=== PATIENT | female | born 1965 | race Caucasian/White ===

== ENCOUNTER 2019-05-07 20:50 | Emergency (ER) | payer OTHER ==
--- OUTSIDE RECORDS SUMMARY | 2019-05-07 20:53 | XMS REPORT | Clinical Summary ---
:1965 Author Organization [facility] Address [address] [place] [address] Care Team Providers Name Role Phone Kevin Nieto MD Primary Care Provider Allergies Active Allergy Reactions Severity Noted Date Comments Hydromorphone Anaphylaxis High 02/19/2018 halucinations severe Other Anxiety, Palpitations Low 01/23/2018 ANTI DEPRESSION MEDICATION - NAME UNKNOWN. Sulfa (Sulfonamide Hives, Itching 01/23/2018 Antibiotics) Medications Medication Sig Dispensed Refills Start Date End Date Status atorvastatin Take 40 mg by 0 Active (LIPITOR) 40 MG mouth daily. tablet gabapentin Take 600 mg by 0 Active (NEURONTIN) 600 mg mouth daily. tablet losartan (COZAAR) 50 Take 50 mg by 0 Active MG tablet mouth daily. nadolol (CORGARD) 40 Take 40 mg by 0 Active MG tablet mouth daily. vortioxetine Take 20 mg by 0 Active (TRINTELLIX) 20 mg mouth daily. tablet FEXOFENADINE HCL Take 1 tablet 0 Active (CHIDI ORAL) by mouth daily. montelukast Take 10 mg by 0 Active (SINGULAIR) 10 mg mouth nightly. tablet HYDROcodone-acetamino Take 2 tablets 0 Active phen (NORCO) 10-325 by mouth 3 mg per tablet (three) times a day. naloxegol (MOVANTIK) Take 25 mg by 0 Active 25 mg tablet tablet mouth daily. liraglutide (VICTOZA) Inject 1.2 mg 0 Active 0.6 mg/0.1 mL (18 under the skin mg/3 mL) pen injector daily. omeprazole (PriLOSEC) Take 20 mg by 0 Active 20 MG capsule mouth daily. topiramate (TROKENDI Take 25 mg by 0 Active XR) 25 mg mouth daily. capsule,extended release 24hr multivitamin Take 1 tablet 0 Active (THERAGRAN) tablet by mouth daily. Lactobacillus Take 1 capsule 0 Active acidophilus by mouth. (PROBIOTIC ACIDOPHILUS ORAL) cephalexin (KEFLEX) Take 1 capsule 21 capsule 0 09/19/2018 09/26/2018 500 MG capsule (500 mg total) by mouth 3 (three) times a day for 7 days. Active Problems Problem Noted Date Chronic pain syndrome 09/18/2018 Breast cancer, right breast 03/06/2018 Cancer Staging: Pathologic stage from 03/06/2018: Stage 0 (pTis (DCIS), pN0, cM0 ) - Signed by Kevin Nieto MD on 04/11/2018 Encounters Date Type Specialty Care Team Description 12/31/2018 Office Visit Neurosurgery Makro Townsend MD Chronic pain syndrome (Primary Dx); Chronic bilateral low back pain with bilateral sciatica 10/01/2018 Office Visit Neurosurgery Marko Townsend MD Chronic bilateral low back pain with bilateral sciatica (Primary Dx) 09/18/2018 Anesthesia Event Plastic Surgery [facility] Janine mcclendon NP 09/18/2018 Surgery Plastic Surgery Marko Townsend MD PLACEMENT OF SPINAL CORD STIMULATOR SYSTEM 09/18/2018 - Hospital Encounter General Internal Marko Townsend MD Chronic pain syndrome; 09/19/2018 Medicine Acute lumbar radiculopathy; History of breast cancer; Acquired absence of both breasts; Breast deformity 09/17/2018 Prep for Surgery Neurosurgery Marie, Chronic pain Aga, RN syndrome (Primary Dx) 09/05/2018 Hospital Encounter Radiology Josse Nieto MD 08/29/2018 Transcribe Orders Access Josse Nieto MD (Primary Dx) 08/27/2018 Pre-Admit Testing Pre-Admission Marko Townsend MD Preoperative Appointment Testing testing (Primary Dx) 07/23/2018 Hospital Encounter Radiology Marko Townsend MD 07/23/2018 Hospital Encounter Radiology Marko Townsend MD 07/23/2018 Office Visit Neurosurgery Marko Townsend MD Chronic bilateral low back pain with right-sided sciatica (Primary Dx); 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 Last Filed Vital Signs Vital Sign Reading Time Taken Blood Pressure 133/63 09/19/2018 11:12 AM LAWN MOWER OPERATOR Pulse 79 09/19/2018 11:12 AM LAWN MOWER OPERATOR Temperature 36.7 C (98 F) 09/19/2018 11:12 AM LAWN MOWER OPERATOR Respiratory Rate 18 09/19/2018 11:12 AM LAWN MOWER OPERATOR Oxygen Saturation 98% 09/19/2018 11:12 AM LAWN MOWER OPERATOR Inhaled Oxygen Concentration - - Weight 81.7 kg (180 lb 3.2 oz) 09/18/2018 6:42 AM LAWN MOWER OPERATOR Height 167.6 cm (5' 6") 09/18/2018 6:42 AM LAWN MOWER OPERATOR Body Mass Index 29.09 09/18/2018 6:42 AM LAWN MOWER OPERATOR Plan of Treatment Health Maintenance Due Date Last Done Comments COLONOSCOPY SCREENING 2015 SHINGLES VACCINES (#1) 2015 INFLUENZA VACCINE 05/16/2019 BREAST CANCER SCREENING 09/05/2020 09/05/2018 Implants Implanted Type Area Flight Mechanic Device Shelf Model / Identifier Expiration Serial / Date Lot Generator, Tunezy 7 With Patient Controller - [id number] - [id number] IMPLANT [facility] [employer] - 12/18/2019 3662 CONTRISYS / Implanted: Qty: 1 on 09/18/2018 by Marko Townsend MD DEVICES NEUROMODULATION [id number] / [id number] Lead Nurostmltr 60cm 3mm Penta - [id number] - [id number] Neurosurgical N/A: N/ A ADVANCED 08/14/2020 [id number] / Implanted: Qty: 1 on 09/18/2018 by Marko Townsend MD Implants NEUROMODULATION [id number] / [id number] 12.34cm X 5.86cm X 0.61cm Tunezy Patient Controller Application/ Community Cultural Development Officer, W/IActionable Touch Mobile Digital Device, 6th Generation Pain Mgmt N/A: N/A 01/2020 [id number] / Implanted: Qty: 1 on 09/18/2018 by Marko Townsend MD Implantable / Devices [id number] Drain Wound Hbls Round Radopaq Trocar Kathya White 0.18in 15fr - [id number] Surgical N/A: N/A ETHICON DIV OF 2228 / Implanted: Qty: 1 on 03/06/2018 by Philip Umana MD Implants; ESDRAS & ESDRAS / Expanders; Extenders; Surgical Wires Drain Wound Hbls Round Radopaq Trocar Kathya White 0.18in 15fr - [id number] Surgical N/A: N/A ETHICON DIV OF 2228 / Implanted: Qty: 2 on 03/06/2018 by Philip Umana MD Implants; ESDRAS & ESDRAS / Expanders; Extenders; Surgical Wires Or Nurse Manager Micrvasclr [place] 3mm Anastomosis - [id number] Surgical Right: [employer] [id number] / Implanted: Qty: 1 on 03/06/2018 by Philip Umana MD Implants; Breast INNOVATIONS / Expanders; Extenders; Surgical Wires Drain Wound Hbls Round Radopaq Trocar Kathya White 0.18in 15fr - [id number] Surgical N/A: N/A ETH[employer]ON DIV OF 2228 / Implanted: 03/06/2018 (Quantity not on file) Implants; ESDRAS & ESDRAS / Expanders; Extenders; Surgical Wires Back Fusion Right Breast Biopsy Clip [place] Or Nurse Manager Left: [employer] 03/16/2020 [id number] / Implanted: Qty: 1 on 03/06/2018 by Philip Umana MD Breast INNOVATIONS / Procedures Procedure Name Priority Date/Time Associated Comments Diagnosis POC GLUCOSE Routine 09/19/2018 7:57 Results for this AM LAWN MOWER OPERATOR procedure are in the results section. POC GLUCOSE Routine 09/18/2018 9:43 Results for this PM LAWN MOWER OPERATOR procedure are in the results section. POC GLUCOSE Routine 09/18/2018 5:09 Results for this PM LAWN MOWER OPERATOR procedure are in the results section. POC GLUCOSE Routine 09/18/2018 1:55 Results for this PM LAWN MOWER OPERATOR procedure are in the results section. SURGICAL PATHOLOGY Routine 09/18/2018 1:53 Results for this REQUEST PM LAWN MOWER OPERATOR procedure are in the results section. OR FL < 1 HOUR Routine 09/18/2018 8:40 Results for this AM LAWN MOWER OPERATOR procedure are in the results section. AK AN ELECTIVE Routine 09/18/2018 7:53 ENDOTRACHEAL AIRWAY AM LAWN MOWER OPERATOR Procedure Note - Dakota Garcia MD - 09/18/2018 7:53 AM LAWN MOWER OPERATOR ANESTHESIA INTUBATION Date/Time: 09/18/2018 7:48 AM Performed by: Dakota Garcia MD Authorized by: Dakota Garcia MD Location: OR Urgency: Elective Difficult Airway: No Anesthesiologist: Dakota Garcia MD Performed by: anesthesiologist Preoxygenated with 100% O2: Yes C-spine Precautions Maintained Throughout: Yes Mask Ventilation: Easy mask Final Airway Type: Endotracheal airway Final Endotracheal Airway: ETT Technique Used: Direct laryngoscopy Insertion Site: Oral Blade Type: Julissa Laryngoscope Blade/Videolaryngoscope Blade Size: 3 ETT Size (mm): 7.0 Measured from: Gums ETT to Gums (cm): 22 Placement Verified by: CO2 detection, direct visualization and equal breath sounds Laryngoscopic view: Grade I - full view of glottis Rapid Sequence Induction (RSI): No Modified RSI: No Number of Attempts at Approach: 1 Medications Administered Propofol (DIPRIVAN) BOLUS, 200 mg rocuronium (ZEMURON), 25 mg LIPOSUCTION 09/18/2018 7:30 AM LAWN MOWER OPERATOR Chronic pain syndrome Acute lumbar radiculopathy History of breast cancer Acquired absence of both breasts Breast deformity Case Notes C-ARM, KILLIAN TABLE, FOWLER DEVICE, PRONE POSITION, DR. TOWNSEND WORKING 1ST EST 90 MINSMD HOLDEN FULL NEURO STAFF/ EQUIP--COMING FR RM 10DR UMANA CO-SURGEON(WORKING 2ND/ EST 3 HRS)POSSIBLE EXTENDED RECOVERY NEEDED Special Needs C-ARM, KILLIAN TABLE; FOWLER DEVICE, PRONE POSITION, DR. TOWNSEND WORKING 1ST EST 90 MINSMD HOLDEN FULL NEURO STAFF/ EQUIP--COMING FR RM 10DR UMANA CO-SURGEON(WORKING 2ND/ EST 3 HRS)POSSIBLE EXTENDED RECOVERY NEEDED INJECTION, FAT GRAFT 09/18/2018 7:30 AM LAWN MOWER OPERATOR Chronic pain syndrome Acute lumbar radiculopathy History of breast cancer Acquired absence of both breasts Breast deformity Case Notes C-ARM, KILLIAN TABLE, FOWLER DEVICE, PRONE POSITION, DR. TOWNSEND WORKING 1ST EST 90 MINSMD HOLDEN FULL NEURO STAFF/ EQUIP--COMING FR RM 10DR UMANA CO-SURGEON(WORKING 2ND/ EST 3 HRS)POSSIBLE EXTENDED RECOVERY NEEDED Special Needs C-ARM, KILLIAN TABLE; FOWLER DEVICE, PRONE POSITION, DR. TOWNSEND WORKING 1ST EST 90 MINSMD HOLDEN FULL NEURO STAFF/ EQUIP--COMING FR RM 10DR UMANA CO-SURGEON(WORKING 2ND/ EST 3 HRS)POSSIBLE EXTENDED RECOVERY NEEDED REVISION, RECONSTRUCTION, 09/18/2018 7:30 AM Chronic pain syndrome BREAST LAWN MOWER OPERATOR Acute lumbar radiculopathy History of breast cancer Acquired absence of both breasts Breast deformity Case Notes C-ARM, KILLIAN TABLE, FOWLER DEVICE, PRONE POSITION, DR. TOWNSEND WORKING 1ST EST 90 MINSMD HOLDEN FULL NEURO STAFF/ EQUIP--COMING FR RM 10DR UMANA CO-SURGEON(WORKING 2ND/ EST 3 HRS)POSSIBLE EXTENDED RECOVERY NEEDED Special Needs C-ARM, KILLIAN TABLE; FOWLER DEVICE, PRONE POSITION, DR. TOWNSEND WORKING 1ST EST 90 MINSMD HOLDEN FULL NEURO STAFF/ EQUIP--COMING FR RM 10DR UMANA CO-SURGEON(WORKING 2ND/ EST 3 HRS)POSSIBLE EXTENDED RECOVERY NEEDED INSERTION, NEUROSTIMULATOR 09/18/2018 7:30 AM Chronic pain syndrome PULSE GENERATOR, SPINAL, LAWN MOWER OPERATOR Acute lumbar radiculopathy SUBCUTANEOUS History of breast cancer Acquired absence of both breasts Breast deformity Case Notes C-ARM, KILLIAN TABLE, FOWLER DEVICE, PRONE POSITION, DR. TOWNSEND WORKING 1ST EST 90 MINSMD HOLDEN FULL NEURO STAFF/ EQUIP--COMING FR RM 10DR UMANA CO-SURGEON(WORKING 2ND/ EST 3 HRS)POSSIBLE EXTENDED RECOVERY NEEDED Special Needs C-ARM, KILLIAN TABLE; FOWLER DEVICE, PRONE POSITION, DR. TOWNSEND WORKING 1ST EST 90 MINSMD HOLDEN FULL NEURO STAFF/ EQUIP--COMING FR RM 10DR UMANA CO-SURGEON(WORKING 2ND/ EST 3 HRS)POSSIBLE EXTENDED RECOVERY NEEDED POC GLUCOSE Routine 09/18/2018 7:04 Results for this AM LAWN MOWER OPERATOR procedure are in the results section. US BREAST COMPLETE Routine 09/05/2018 8:42 Breast mass Results for this BILATERAL AM LAWN MOWER OPERATOR procedure are in the results section. ESTIMATED GFR Routine 08/27/2018 4:28 Results for this PM LAWN MOWER OPERATOR procedure are in the results section. HEMOGLOBIN A1C Routine 08/27/2018 4:28 Preoperative testing Results for this PM LAWN MOWER OPERATOR procedure are in the results section. PROTHROMBIN TIME WITH Routine 08/27/2018 4:28 Preoperative testing Results for this INR PM LAWN MOWER OPERATOR procedure are in the results section. PARTIAL THROMBOPLASTIN Routine 08/27/2018 4:28 Preoperative testing Results for this TIME (PTT) PM LAWN MOWER OPERATOR procedure are in the results section. COMPREHENSIVE Routine 08/27/2018 4:28 Preoperative testing Results for this METABOLIC PANEL PM LAWN MOWER OPERATOR procedure are in the results section. HC COMPLETE BLD COUNT Routine 08/27/2018 4:28 Preoperative testing Results for this W/AUTO DIFF PM LAWN MOWER OPERATOR procedure are in the results section. TRANSFUSE RED BLOOD Routine 06/20/2018 5:53 CELLS PM CDT after 05/06/2018 Results POC glucose (09/19/2018 7:57 AM LAWN MOWER OPERATOR)Only the most recent of5 resultswithin the time period is included. POC glucose 100 (H) 65 - 99 mg/dL [facility] Comment: [facility] Notified RN Meter ID: [id number] Under Cutter: Brian Gallego Specimen Performing Organization Address City/State/Zipcode Phone Number [facility] DEPARTMENT OF PATHOLOGY AND [address] [place] [address] [place] [address] Surgical pathology request (09/18/2018 1:53 PM LAWN MOWER OPERATOR) [facility] DEPARTMENT OF PATHOLOGY AND GENOMIC MEDICINE Surgical pathology See link below [facility] DEPARTMENT OF report for PDF Lab PATHOLOGY AND Report GENOMIC MEDICINE Result status This is Final [facility] DEPARTMENT OF Report for PATHOLOGY AND [id number] GENOMIC MEDICINE Specimen Performing Organization Address City/[facility]/Zipcode Phone Number [facility] DEPARTMENT OF PATHOLOGY AND [address] [place] [id number] GENOMIC MEDICINE OR FL < 1 Hour (09/18/2018 8:40 AM LAWN MOWER OPERATOR) Specimen Narrative Performed At IMPRESSION: C-arm fluoroscopy under one hour was provided in the OR for RADIANT the referring physician. A radiologist was not present during the procedure. Refer to the Operative report issued by the performing provider for procedure details. Location: [facility] OR 20 Procedure: SPINAL CORD STIMULATOR INS Start:0800 End: 0840 Fluoro Time:0.1M mGy: 3.23 Tech: JV [id number] Procedure Note Interface, Radiology Results Incoming - 09/18/2018 12:22 PM LAWN MOWER OPERATOR IMPRESSION: C-arm fluoroscopy under one hour was provided in the OR for the referring physician. A radiologist was not present during the procedure. Refer to the Operative report issued by the performing provider for procedure details. Location: [facility] 3 OR 20 Procedure: SPINAL CORD STIMULATOR INS Start:0800 End: 0840 Fluoro Time:0.1M mGy: 3.23 Tech: BASSAM [id number] Performing Organization Address [facility]/Zipcode Phone Number [facility] [address] [place] [address] US Breast Complete Bilateral (09/05/2018 8:42 AM LAWN MOWER OPERATOR) Specimen Narrative Performed At PROCEDURE: US BREAST COMPLETE BILATERAL HM RADIANT 53-year-old with history of bilateral mastectomy. In 63. 0. Unspecified lump in breast. Status post bilateral mastectomies and bilateral reconstruction. Palpable masses bilaterally. History of known right DCIS. The patient had undergone bilateral mastectomies 03/06/2018 as well as reconstructions same day. COMPARISON: No prior ultrasound available for comparison. Previous breast MRI 01/23/2018 available. This apparently was before surgery. It showed an area that measures 1.4 cm in dimension with indeterminate morphology which represent the biopsy site. FINDINGS:Bilateral breast ultrasound accomplished with close germination worker supervision and scanning in all 4 quadrants and subareolar regions. Right breast: Upper inner quadrant, a palpable area shows a irregular superficial heterogeneous mass with some cystic component and measurement of 1.8 cm and 1.6 and 0.77 cm. Palpable area right lateral breast: Simple cyst measuring 2 cm. Left upper outer quadrant, linear superficial, subcutaneous foreign body measuring 2.6 cm long. Left medial breast shows a palpable area that is primarily cystic and measures 4.4 cm x 1.6 cm. Another palpable area in the left upper inner quadrant shows similar ultrasound characteristics heterogeneous, mixed solid and cystic, measuring 4 x 1.4 cm. IMPRESSION:Multiple bilateral fat necrosis. A foreign body was noted superficially in the subcutaneous tissues measuring about 2.6 cm long in the left upper outer quadrant. Also. RECOMMENDATION: Follow-up as needed. 6 month ultrasound follow-up would be useful. BI-RADS 3:PROBABLY BENIGN. [facility]-[id number] Performing Organization Address City/[facility]/Zipcode Phone Number [place] [address] [place] [address] Estimated GFR (08/27/2018 4:28 PM LAWN MOWER OPERATOR) Estimated GFR 77 mL/min/1.73 [facility] Comment: [address] CatergoryUnitsInterpretation G1 >=90 Normal or high G2 60-89Mildly decreased [id number] to moderately decreased [id number] to severely decreased G4 15-29Severely decreased G5 <15Kidney failure The eGFR was calculated using the Chronic Kidney Disease Epidemiology Collaboration (CKD-EPI) equation. Interpretation is based on recommendations of the National Kidney Foundation-Kidney Disease Outcomes Quality Initiative (NKF-KDOQI) published in 2014. Specimen Plasma specimen Performing Organization Address City/[facility] Phone Number [facility] DEPARTMENT OF PATHOLOGY AND [address] [place] [phone] [place] [phone] Partial thromboplastin time, activated (08/27/2018 4:28 PM LAWN MOWER OPERATOR) PTT 35.6 23.0 - 36.0 [facility] Comment: [facility] PTT therapeutic range for unfractionated heparin is 61.0-112.0 seconds which corresponds to Anti-Xa 0.3-0.7 U/ml. Specimen Blood Performing Organization Address [facility] Phone Number [facility] DEPARTMENT OF PATHOLOGY AND [address] [place] [phone] [place] [phone] Prothrombin time with INR (08/27/2018 4:28 PM LAWN MOWER OPERATOR) Pathologist [facility] Prothrombin time 13.7 11.5 - 14.5 [facility] INR 1.1 [place] Comment: [facility] The International Normalized Ratio (INR) is a therapeutic HOSPITAL monitoring tool for patients who are stable on oral anticoagulant therapy. An INR of 2.0-3.0 is suggested for deep vein thrombosis/pulmonary embolism. Specimen Blood Performing Organization Address [facility] Phone Number [facility] DEPARTMENT OF PATHOLOGY AND [address] [place] [phone] [place] [phone] CBC with platelet and differential (08/27/2018 4:28 PM LAWN MOWER OPERATOR) WBC 12.06 (H) 4.50 - 11.00 [facility] RBC 5.13 4.20 - 5.50 [facility] HGB 13.7 12.0 - 16.0 [facility] g/dL HOSPITAL HCT 44.4 37.0 - 47.0 % [facility] MCV 86.5 82.0 - 100.0 [facility] MCH 26.7 (L) 27.0 - 34.0 pg [facility] MCHC 30.9 (L) 31.0 - 37.0 [facility] g/dL [facility] RDW - SD 49.8 37.0 - 55.0 fL [facility] MPV 10.6 8.8 - 13.2 fL [facility] Platelet count 307 150 - 400 k/uL [facility] Nucleated RBC 0.00 /100 WBC [facility] Neutrophils 60.9 39.0 - 69.0 % [facility] Lymphocytes 30.5 25.0 - 45.0 % [facility] Monocytes 6.1 0.0 - 10.0 % [facility] Eosinophils 1.9 0.0 - 5.0 % [facility] Basophils 0.4 0.0 - 1.0 % [facility] Immature granulocytes 0.2Comment: 0.0 - 1.0 % [facility] "[facility] granulocytes" (promyelocytes , myelocytes, metamyelocytes ) Specimen Blood Performing Organization Address City/[facility]/Zipcode Phone Number [facility] DEPARTMENT OF PATHOLOGY AND [address] [place] [phone] Hemoglobin A1c (08/27/2018 4:28 PM LAWN MOWER OPERATOR) Hemoglobin A1C 5.9 (H) 4.0 - 5.6 % [facility] Comment: HOSPITAL HbA1c cutoffs for diagnosing diabetes: 4.0% - 5.6%=normal 5.7% - 6.4%=increased risk for diabetes (prediabetes) >=6.5%=diabetes Goals for glycemic control (ADA 2016) < 7.0%Target for non adults with diabetes. More or less stringent targets may be appropriate for individual patients. <7.5% Target for Children and adolescents with type 1 diabetes. Specimen Blood Performing Organization Address City/State/Zipcode Phone Number [facility] DEPARTMENT OF PATHOLOGY AND [address] [place], [place] [phone] [address] [address] Comprehensive metabolic panel (08/27/2018 4:28 PM LAWN MOWER OPERATOR) Sodium 146 135 - 148 [facility] mEq/L [facility] Potassium 4.0 3.5 - 5.0 [facility] mEq/L [facility] Chloride 105 98 - 112 mEq/L [facility] CO2 25 24 - 31 mEq/L [facility] Anion gap 16@ANIO (H) 7 - 15 mEq/L [facility] BUN 12 6 - 20 mg/dL [facility] Creatinine 0.86 0.50 - 0.90 [facility] mg/dL [facility] Glucose 132 (H) 65 - 99 mg/dL [facility] Calcium 9.9 8.3 - 10.2 [facility] mg/dL [facility] Protein 7.2 6.3 - 8.3 g/dL [facility] Comment: HOSPITAL 4.6-7.0 g/dL 1 week 4.4-7.6 g/dL 7 months-1year5.1-7.3 g/dL 1-2 years5.6-7.5 g/dL >3 years6.0-8.0 g/dL 18-150 6.3-8.3 g/dL Albumin 3.8 3.5 - 5.0 g/dL [facility] A/G ratio 1.1 0.7 - 3.8 [facility] Alkaline phosphatase 131 (H) 35 - 104 U/L [facility] AST 34 10 - 35 U/L [facility] ALT 60 (H) 5 - 50 U/L [facility] Total bilirubin 0.6 0.0 - 1.2 [facility] mg/dL [facility] Specimen Plasma specimen Performing Organization Address City/State/Zipcode Phone Number [facility] DEPARTMENT OF PATHOLOGY AND [address] [place] [address] GENOMIC MEDICINE [address] [address] Transfuse RBC (06/20/2018 5:53 PM CDT)after 05/06/2018 [phone] [address] (Home) [place] [address] Mary Zarco Reconstructive Self [phone] [address] (Home) [place] [address] Advance Directives Patient has advance care planning documents on file. For more information, please contact:Jovanni Duarte[address] [place] [address]
[2019-05-07] MEDS ORDERED: ONDANSETRON 4 MG (ODT) TAB ONE (23:32)
[2019-05-07] MEDS ORDERED: FENTANYL CITR 100 MCG/2 ML ONE (23:47)
--- NOTE | 2019-05-08 00:53 | ER ---
Nurse's Notes [facility] Name: Mary Zarco Age: 54 yrs Sex: Female : 1965 Arrival Date: 05/07/2019 Time: 20:56 Bed 20 Private MD: Diagnosis: Fall on same level from slipping, tripping and stumbling;Pain in left wrist-from fall;Neck and back pain from fall;Pain in left knee-from fall Presentation: 05/07 21:03 Presenting complaint: Patient states: Reports slip and fall onto left knee, left wrist aj and then onto back. Reports neck pain. Placed in c collar in triage. Care prior to arrival: None. Mechanism of Injury: Fall from standing position. Trauma event details: Injury occurred in the [facility], Injury occurred: at home. Injury occurred: May 07, 2019 Injury occurred at: 20:30. 21:03 Acuity: PANCHITO 4 aj 21:03 Method Of Arrival: Wheelchair aj 21:07 Transition of care: patient was not received from another setting of care. Onset of aj symptoms was May 07, 2019. Risk Assessment: Do you want to hurt yourself or someone else? Patient reports no desire to harm self or others. Initial Sepsis Screen: Does the patient meet any 2 criteria? No. Patient's initial sepsis screen is negative. Does the patient have a suspected source of infection? No. Patient's initial sepsis screen is negative. Trauma Activation: Not Applicable Physician: ED Physician; Name: ; Notified At: ; Arrived At: Physician: General Surgeon; Name: ; Notified At: ; Arrived At: Physician: Radiology; Name: ; Notified At: ; Arrived At: Physician: Respiratory; Name: ; Notified At: ; Arrived At: Physician: Lab; Name: ; Notified At: ; Arrived At: Historical: - Allergies: 21:08 Sulfa (Sulfonamide Antibiotics); aj 21:08 Dilaudid; aj - Home Meds: 21:08 [place] Oral daily [Active]; alprazolam 1 mg Oral tab twice a day [Active]; losartan aj 100 mg Oral tab 1 tab once daily [Active]; nadolol 40 mg Oral tab 1 tab once daily [Active]; nitrofurantoin macrocrystal 100 mg Oral cap twice a day [Active]; Norvasc 5 mg Oral tab 1 tab once daily [Active]; probiotics daily [Active]; Vicodin ES 10/325 mg q4-6 prn Oral [Active]; Viibryd 20 mg Oral tab once daily [Active]; Vitamin B-12 1,000 mcg Oral tab daily [Active]; Vitamin D3 2,000 unit Oral cap 2 tab daily [Active]; - PMHx: 21:08 Anxiety; Depression; Hypertension; tremors; Chronic pain; aj - PSHx: 21:08 Cholecystectomy; Hysterectomy; S1-L2 surgery; aj - Immunization history: Last tetanus immunization: - up to date. - Social history:: Smoking status: Patient/guardian denies using tobacco. - Ebola Screening: : Patient negative for fever greater than or equal to 101.5 degrees Fahrenheit, and additional compatible Ebola Virus Disease symptoms Patient denies exposure to infectious person Patient denies travel to an Ebola-affected area in the 21 days before illness onset No symptoms or risks identified at this time. Screenin:06 Abuse screen: Denies threats or abuse. Denies injuries from another. Tuberculosis aj screening: No symptoms or risk factors identified. 21:10 Fall Risk None identified. 4 05/08 01:00 Nutritional screening: No deficits noted. jb4 Primary Survey: 05/07 21:03 NO uncontrolled hemorrhage observed. Breathing/Chest: Respiratory pattern: regular, no aj respiratory pattern noted, Respiratory effort: spontaneous, unlabored. Circulation: Skin color: pink, Skin temperature: warm, dry. Disability Alert. Exposure/Environment: There is no evidence of uncontrolled external bleeding. 22:00 Reassessment Airway Airway Patent Breathing/Chest Respiratory pattern Regular jb4 Respiratory effort Spontaneous Unlabored Breath sounds Clear Chest inspection Symmetrical Circulation Color [place] Temperature Warm Dry. Assessment: 21:03 General: Appears in no apparent distress. comfortable, Behavior is calm, cooperative, aj appropriate for age. Pain: Complains of pain in left wrist, left knee, back of neck, posterior chest and back. Neuro: Level of Consciousness is awake, alert, obeys commands, Oriented to person, place, time, situation, Appropriate for age. Respiratory: Airway is patent Respiratory effort is even, unlabored, Respiratory pattern is regular, symmetrical. Derm: Skin is intact, is healthy with good turgor, Skin is pink, warm \T\ dry. normal. Musculoskeletal: Circulation, motion, and sensation intact. Swelling present in left wrist and left knee. Injury Description: Abrasion sustained to left knee. 22:16 Reassessment: Patient appears in no apparent distress at this time. Patient and/or jb4 family updated on plan of care and expected duration. Pain level reassessed. Patient is alert, oriented x 3, equal unlabored respirations, skin warm/dry/pink. 23:14 Reassessment: Patient appears in no apparent distress at this time. Patient and/or jb4 family updated on plan of care and expected duration. Pain level reassessed. Patient is alert, oriented x 3, equal unlabored respirations, skin warm/dry/pink. Pt is back from CT reports an increase in pain and nausea, provider notified, see MAR for orders. 05/08 00:15 Reassessment: Patient appears in no apparent distress at this time. Patient and/or jb4 family updated on plan of care and expected duration. Pain level reassessed. Patient is alert, oriented x 3, equal unlabored respirations, skin warm/dry/pink. Patient states feeling better. 01:18 Reassessment: Patient appears in no apparent distress at this time. Patient and/or jb4 family updated on plan of care and expected duration. Pain level reassessed. Patient is alert, oriented x 3, equal unlabored respirations, skin warm/dry/pink. Vital Signs: 05/07 21:06 BP 171 / 92; Pulse 78; Resp 19; Temp 99.2; Pulse Ox 99% on R/A; Weight 78.02 kg; aj 22:00 BP 148 / 63; Pulse 66; Resp 16; Pulse Ox 100% on R/A; jb4 23:15 BP 155 / 70; Pulse 67; Resp 16; Pulse Ox 100% ; jb4 05/08 00:15 BP 139 / 73; Pulse 70; Resp 16; Pulse Ox 100% on R/A; jb4 01:00 BP 125 / 70; Pulse 65; Resp 16; Pulse Ox 100% on R/A; jb4 Mateusz Coma Score: 05/07 21:10 Eye Response: spontaneous(4). Verbal Response: oriented(5). Motor Response: obeys jb4 commands(6). Total: 15. 22:00 Eye Response: spontaneous(4). Verbal Response: oriented(5). Motor Response: obeys jb4 commands(6). Total: 15. 23:00 Eye Response: spontaneous(4). Verbal Response: oriented(5). Motor Response: obeys jb4 commands(6). Total: 15. 05/08 00:00 Eye Response: spontaneous(4). Verbal Response: oriented(5). Motor Response: obeys jb4 commands(6). Total: 15. 01:00 Eye Response: spontaneous(4). Verbal Response: oriented(5). Motor Response: obeys jb4 commands(6). Total: 15. Trauma Score (Adult): 05/07 21:10 Eye Response: spontaneous(1); Verbal Response: oriented(1); Motor Response: obeys jb4 commands(2); Systolic BP: > 89 mm Hg(4); Respiratory Rate: 10 to 29 per min(4); [place] Score: 15; Trauma Score: 12 22:00 Eye Response: spontaneous(1); Verbal Response: oriented(1); Motor Response: obeys jb4 commands(2); Systolic BP: > 89 mm Hg(4); Respiratory Rate: 10 to 29 per min(4); [place] Score: 15; Trauma Score: 12 23:00 Eye Response: spontaneous(1); Verbal Response: oriented(1); Motor Response: obeys jb4 commands(2); Systolic BP: > 89 mm Hg(4); Respiratory Rate: 10 to 29 per min(4); Mateusz Score: 15; Trauma Score: 12 05/08 00:00 Eye Response: spontaneous(1); Verbal Response: oriented(1); Motor Response: obeys jb4 commands(2); Systolic BP: > 89 mm Hg(4); Respiratory Rate: 10 to 29 per min(4); [place] Score: 15; Trauma Score: 12 01:00 Eye Response: spontaneous(1); Verbal Response: oriented(1); Motor Response: obeys jb4 commands(2); Systolic BP: > 89 mm Hg(4); Respiratory Rate: 10 to 29 per min(4); [place] Score: 15; Trauma Score: 12 ED Course: 05/07 20:56 Patient arrived in ED. ag3 21:04 Triage completed. aj 21:06 Patient has correct armband on for positive identification. aj 21:06 Patient maintains SpO2 saturation greater than 95% on room air. aj 21:08 Arm band placed on left wrist. Patient placed in waiting room. C-collar applied. aj 21:10 Thermoregulation: warm blanket given to patient. jb4 21:42 Knee Left 3 View XRAY In Process Unspecified. EDMS 21:43 Wrist Left (3 View) XRAY In Process Unspecified. EDMS 21:52 Demario Sage PA is PHCP. cp 21:52 Gian Rosales MD is Attending Physician. cp 22:09 Tank Hong, RN is Primary Nurse. jb4 22:57 CT Head C Spine In Process Unspecified. EDMS 23:13 XRAY Thoracic Spine (Ap/lat) In Process Unspecified. EDMS 23:13 XRAY Lumbar Spine (3 Views) In Process Unspecified. EDMS 05/08 00:51 William Irvin MD is Referral Physician. cp 01:20 No provider procedures requiring assistance completed. Patient did not have IV access jb4 during this emergency room visit. Administered Medications: 05/07 23:15 Drug: Zofran 4 mg Route: PO; jb4 23:45 Follow up: Response: No adverse reaction; Nausea is decreased jb4 23:33 Drug: fentaNYL (PF) 25 mcg Route: IM; Site: right gluteus; jb4 05/08 00:00 Follow up: Response: No adverse reaction; Pain is decreased jb4 Intake: 01:22 PO: 0ml; Total: 0ml. jb4 Output: 01:22 Urine: 0ml; Total: 0ml. jb4 Outcome: 00:52 Discharge ordered by MD. cp 01:20 Discharged to home ambulatory, with family. jb4 01:20 Condition: stable 01:20 Discharge instructions given to patient, family, Instructed on discharge instructions, follow up and referral plans. Demonstrated understanding of instructions, follow-up care. 01:22 Patient's length of stay in the Emergency Department was greater than 2 hours. Pt jb4 discharged.Patient's length of stay extended due to 01:23 Patient left the ED. jb4 Signatures: Dispatcher [employer] EDFelicitas Gupta RN RN aj Page, Corey, PA PA cp Tank Hong, RN RN jb4 Corina Arthur ag3
--- NOTE | 2019-05-08 00:53 | EDPHYS ---
Physician Documentation [facility] Name: Mary Zarco Age: 54 yrs Sex: Female : 1965 Arrival Date: 05/07/2019 Time: 20:56 Bed 20 Private MD: ED Physician Gian Rosales HPI: 05/07 22:05 This 54 yrs old Female presents to ER via Wheelchair with complaints of Fall cp Injury. 22:05 Details of fall: The patient fell from an upright position, while walking, and struck a cp concrete surface. Onset: The symptoms/episode began/occurred today. 22:05 Patient reports she [place] when she slipped on wet concrete and cp landed on her back striking her left wrist, left knee and head. Patient with history of lumbar fusion. Historical: - Allergies: 21:08 Sulfa (Sulfonamide Antibiotics); aj 21:08 Dilaudid; aj - Home Meds: 21:08 Talisha Oral daily [Active]; alprazolam 1 mg Oral tab twice a day [Active]; losartan aj 100 mg Oral tab 1 tab once daily [Active]; nadolol 40 mg Oral tab 1 tab once daily [Active]; nitrofurantoin macrocrystal 100 mg Oral cap twice a day [Active]; Norvasc 5 mg Oral tab 1 tab once daily [Active]; probiotics daily [Active]; Vicodin ES 10/325 mg q4-6 prn Oral [Active]; Viibryd 20 mg Oral tab once daily [Active]; Vitamin B-12 1,000 mcg Oral tab daily [Active]; Vitamin D3 2,000 unit Oral cap 2 tab daily [Active]; - PMHx: 21:08 Anxiety; Depression; Hypertension; tremors; Chronic pain; aj - PSHx: 21:08 Cholecystectomy; Hysterectomy; S1-L2 surgery; aj - Immunization history: Last tetanus immunization: - up to date. - Social history:: Smoking status: Patient/guardian denies using tobacco. - Ebola Screening: : Patient negative for fever greater than or equal to 101.5 degrees Fahrenheit, and additional compatible Ebola Virus Disease symptoms Patient denies exposure to infectious person Patient denies travel to an Ebola-affected area in the 21 days before illness onset No symptoms or risks identified at this time. ROS: 22:10 Constitutional: Negative for body aches, chills, fever, poor PO intake. cp 22:10 Eyes: Negative for injury, pain, redness, and discharge. cp 22:10 Neck: Positive for pain with movement, pain at rest, bony tenderness. cp 22:10 Cardiovascular: Negative for chest pain, palpitations. 22:10 Respiratory: Negative for cough, shortness of breath, wheezing. 22:10 Abdomen/GI: Negative for abdominal pain, nausea, vomiting, and diarrhea, black/tarry cp stool, rectal bleeding. 22:10 Back: Positive for pain at rest, pain with movement. 22:10 MS/extremity: Positive for pain, tenderness, of the left knee and left wrist, Negative for decreased range of motion, deformity. 22:10 Skin: Negative for rash. 22:10 Neuro: Positive for headache, Negative for altered mental status, loss of consciousness, weakness. 22:10 All other systems are negative. Exam: 22:20 Constitutional: The patient appears in no acute distress, alert, awake, non-toxic, well cp developed, well nourished. 22:20 Head/face: Exam is negative for deformity. cp 22:20 Eyes: Periorbital structures: appear normal, Pupils: equal, round, and reactive to light and accomodation, Extraocular movements: intact throughout, Conjunctiva: Sclera: no appreciated abnormality, Lids and lashes: appear normal, bilaterally. 22:20 ENT: External ear(s): are unremarkable, Ear canal(s): are normal, clear, TM's: dullness, bilaterally, Nose: is normal, Mouth: Lips: moist, Oral mucosa: pink and intact, moist, Dental exam: 22:20 Neck: C-spine: C-collar placed in ED. 22:20 Chest/axilla: Inspection: normal, Palpation: is normal, no crepitus, no tenderness. 22:20 Back: pain, that is moderate, of the thoracic area and lumbar area, ROM is painful, with all movement. 22:20 Abdomen/GI: Inspection: abdomen appears normal, Bowel sounds: active, all quadrants, cp Palpation: abdomen is soft and non-tender, in all quadrants. 22:20 Musculoskeletal/extremity: Pulses: are normal with no appreciated deficits, Sensation cp intact. Joints: All joints are normal except the left wrist displays painful range of motion, tenderness, the left knee displays painful range of motion, tenderness. 22:20 Neuro: Orientation: to person, place \T\ time. Mentation: is normal, Motor: moves all fours, strength is normal, Sensation: no obvious gross deficits. Vital Signs: 21:06 BP 171 / 92; Pulse 78; Resp 19; Temp 99.2; Pulse Ox 99% on R/A; Weight 78.02 kg; aj 22:00 BP 148 / 63; Pulse 66; Resp 16; Pulse Ox 100% on R/A; jb4 23:15 BP 155 / 70; Pulse 67; Resp 16; Pulse Ox 100% ; jb4 05/08 00:15 BP 139 / 73; Pulse 70; Resp 16; Pulse Ox 100% on R/A; jb4 01:00 BP 125 / 70; Pulse 65; Resp 16; Pulse Ox 100% on R/A; jb4 [place] Coma Score: 05/07 21:10 Eye Response: spontaneous(4). Verbal Response: oriented(5). Motor Response: obeys jb4 commands(6). Total: 15. 22:00 Eye Response: spontaneous(4). Verbal Response: oriented(5). Motor Response: obeys jb4 commands(6). Total: 15. 23:00 Eye Response: spontaneous(4). Verbal Response: oriented(5). Motor Response: obeys jb4 commands(6). Total: 15. 05/08 00:00 Eye Response: spontaneous(4). Verbal Response: oriented(5). Motor Response: obeys jb4 commands(6). Total: 15. :00 Eye Response: spontaneous(4). Verbal Response: oriented(5). Motor Response: obeys jb4 commands(6). Total: 15. Trauma Score (Adult): 05/07 21:10 Eye Response: spontaneous(1); Verbal Response: oriented(1); Motor Response: obeys jb4 commands(2); Systolic BP: > 89 mm Hg(4); Respiratory Rate: 10 to 29 per min(4); [place]on Score: 15; Trauma Score: 12 22:00 Eye Response: spontaneous(1); Verbal Response: oriented(1); Motor Response: obeys jb4 commands(2); Systolic BP: > 89 mm Hg(4); Respiratory Rate: 10 to 29 per min(4); [place]on Score: 15; Trauma Score: 12 23:00 Eye Response: spontaneous(1); Verbal Response: oriented(1); Motor Response: obeys jb4 commands(2); Systolic BP: > 89 mm Hg(4); Respiratory Rate: 10 to 29 per min(4); [place] Score: 15; Trauma Score: 12 05/08 00:00 Eye Response: spontaneous(1); Verbal Response: oriented(1); Motor Response: obeys jb4 commands(2); Systolic BP: > 89 mm Hg(4); Respiratory Rate: 10 to 29 per min(4); Mateusz Score: 15; Trauma Score: 12 01:00 Eye Response: spontaneous(1); Verbal Response: oriented(1); Motor Response: obeys jb4 commands(2); Systolic BP: > 89 mm Hg(4); Respiratory Rate: 10 to 29 per min(4); [place] Score: 15; Trauma Score: 12 Procedures: 01:20 Splinting: Splint applied to left wrist using orthoglass thumb spica. applied by tech. cp Examined by me, post splint application: neurovascular intact, Patient tolerated well. MDM: 05/07 21:53 Patient medically screened. cp 22:00 Differential diagnosis: closed head injury, contusion, fracture, multiple trauma. cp 05/08 00:50 Data reviewed: vital signs, nurses notes, radiologic studies, CT scan, plain films. cp 00:50 Test interpretation: by ED physician or midlevel provider: plain radiologic studies. cp 00:52 Counseling: I had a detailed discussion with the patient and/or guardian regarding: the cp historical points, exam findings, and any diagnostic results supporting the discharge/admit diagnosis, radiology results, the need for outpatient follow up, a orthopedic surgeon, to return to the emergency department if symptoms worsen or persist or if there are any questions or concerns that arise at home. 00:52 Response to treatment: the patient's symptoms have markedly improved after treatment, cp and as a result, I will discharge patient. 05/07 21:10 Order name: Knee Left 3 View XRAY aj 05/07 21:10 Order name: Wrist Left (3 View) XRAY aj 05/07 22:04 Order name: CT Head C Spine cp 05/07 22:04 Order name: XRAY Thoracic Spine (Ap/lat) 05/07 22:04 Order name: XRAY Lumbar Spine (3 Views) 05/08 00:14 Order name: Splint: ORTHOGLASS THUMB SPICA LEFT WRIST; Complete Time: 01:15 cp Administered Medications: 05/07 23:15 Drug: Zofran 4 mg Route: PO; jb4 23:45 Follow up: Response: No adverse reaction; Nausea is decreased 4 23:33 Drug: fentaNYL (PF) 25 mcg Route: IM; Site: right gluteus; jb4 05/08 00:00 Follow up: Response: No adverse reaction; Pain is decreased jb4 Disposition: 01:30 Chart complete. 06:11 Co-signature as Attending Physician, Gian Rosales MD I agree with the assessment and [facility] plan of care. Disposition: 05/08/19 00:52 Discharged to Home. Impression: Fall on same level from slipping, tripping and stumbling, Pain in left wrist - from fall, Neck and back pain from fall, Pain in left knee - from fall. - Condition is Stable. - Discharge Instructions: Musculoskeletal Pain, Wrist Pain, Wrist Splint, Knee Pain. - Medication Reconciliation Form, Thank You Letter, Antibiotic Education, Prescription Opioid Use form. - Follow up: William Irvin MD; When: 5 - 6 days; Reason: left wrist pain. - Problem is new. - Symptoms have improved. Signatures: Dispatcher [employer] EDMS Felicitas Crabtree RN RN aj Page, Corey, PA PA Tank Hong RN RN [facility] Gian Rosales MD MD [facility] Corrections: (The following items were deleted from the chart) 00:55 00:52 05/08/2019 00:52 Discharged to Home. Impression: Fall on same level from cp slipping, tripping and stumbling; Pain in left wrist - from fall. Condition is Stable. Forms are Medication Reconciliation Form, Thank You Letter, Antibiotic Education, Prescription Opioid Use. Follow up: William Irvin; When: 5 - 6 days; Reason: left wrist pain. Problem is new. Symptoms have improved. cp 01:23 00:55 05/08/2019 00:52 Discharged to Home. Impression: Fall on same level from [facility] slipping, tripping and stumbling; Pain in left wrist - from fall; Neck and back pain from fall; Pain in left knee - from fall. Condition is Stable. Discharge Instructions: Musculoskeletal Pain, Wrist Pain. Forms are Medication Reconciliation Form, Thank You Letter, Antibiotic Education, Prescription Opioid Use. Follow up: William Irvin; When: 5 - 6 days; Reason: left wrist pain. Problem is new. Symptoms have improved. cp
[2019-05-08 03:13] VITALS: TEMP 99.2
[2019-05-08 03:14] VITALS: O2SAT 100
[2019-05-08 03:18] VITALS: BP 125/70
--- NOTE | 2019-05-08 07:42 | RAD REPORT ---
EXAM DESCRIPTION: RAD - Wrist Left 3 View - 05/07/2019 9:43 pm CLINICAL HISTORY: Slip and fall, left wrist pain COMPARISON: None. FINDINGS: No gross fracture deformity seen. On the lateral view there is soft tissue swelling over t he dorsum of the wrist. There is a small 2 millimeter bone density along the dorsal margin of the fir st carpal row. A small bone avulsion is possible. No other evidence for possible fracture. No dislocation or periosteal reaction. Radiocarpal joint space is narrowed slightly. No foreign body. IMPRESSION: No gross fracture deformity seen though there is a small 2 millimeter bony density over the dorsum of the first carpal row on the lateral view. Small avulsion is possible. Soft tissue swelling over the dorsum of the wrist.
--- NOTE | 2019-05-08 07:43 | RAD REPORT ---
EXAM DESCRIPTION: RAD - Knee Left 3 View - 05/07/2019 9:42 pm CLINICAL HISTORY: Slip and fall, knee pain COMPARISON: None. FINDINGS: No fracture, dislocation or periosteal reaction.No joint effusion seen. No joint space luz rowing. No soft tissue abnormality. Minimal bony hypertrophy of the patella at the quadriceps attachm ent. IMPRESSION: Negative left knee for acute bony finding. Clinical concerns for internal derangement or occult bony injury could be further assessed with MR im aging.
--- NOTE | 2019-05-08 08:28 | RAD REPORT ---
EXAM DESCRIPTION: RAD - Thoracic Spine Ap/Lat - 05/07/2019 11:12 pm CLINICAL HISTORY: Fall, thoracic pain COMPARISON: July 2012 FINDINGS: AP & lateral views of the thoracic spine were obtained. Thoracic bodies are normal in heig ht and alignment. There are no acute or destructive bony processes seen. No paraspinal masses are jojo ntified. Osteopenic changes are evident. Neurostimulator has been placed since prior imaging. There a re surgical clips superimposed on the left hilum. No disc space narrowing. IMPRESSION: Osteopenic changes are present but no compression fracture or acute bone findings seen.
--- NOTE | 2019-05-08 08:29 | RAD REPORT ---
EXAM DESCRIPTION: RAD - Lumbar Spine 3 Views - 05/07/2019 11:12 pm CLINICAL HISTORY: Fall, back pain, prior spinal fusion COMPARISON: February 2016 FINDINGS: A three-view lumbar spine examination was performed. Pedicle screws and rods are present f rom posterior fusion spanning L2-S1. There is wedge compression superior endplate L3 that is similar to the comparison. Well-healed fusion is seen across the L4-5 and L5-S1 disc spaces. Fusion graft mat erial is in place in the L3-4 disc space. No fracture of the hardware. No acute bone finding is identifiable. Neurostimulator device has been p laced since prior imaging. Posterior disc space narrowing at L1-2 noted and stable. Delete select IMPRESSION: L2-S1 fusion changes are present with no acute bone or hardware finding.
--- NOTE | 2019-05-08 10:46 | RAD REPORT ---
EXAM DESCRIPTION: CT - CTHCSPWOC - 05/08/2019 2:55 am CLINICAL HISTORY: 54 years Female fall;Pain COMPARISON: None. TECHNIQUE: Contiguous axial CT images obtained through the brain without IV contrast. This exam was performed according to our department optimization program which includes automated exp osure control, adjustment of the mA and/or kv according to patient size and/or use of iterative recon struction technique. FINDINGS: The ventricles and sulci appear unremarkable. No abnormal areas of decreased density are identified. No acute hemorrhage. No mass lesions. No fluid or significant mucosal thickening in the visualized paranasal sinuses. No depressed calvarial fractures. IMPRESSION: No acute intracranial abnormality is identified. EXAM DESCRIPTION: Head C Spine Mpr Wo Con CLINICAL HISTORY: 54 years Female fall;Pain COMPARISON: None. TECHNIQUE: Contiguous axial images obtained through the cervical spine without IV contrast. Coronal and sagittal reformatted images obtained. This exam was performed according to our department optimization program which includes automated exp osure control, adjustment of the mA and/or kv according to patient size and/or use of iterative recon struction technique. FINDINGS: Straightening of the normal lordosis. Minimal anterolisthesis at C3-4 and C4-5 likely degenerative. No acute fractures. Minimal mucosal thickening in the sphenoid sinuses. IMPRESSION: No acute cervical spinal fracture is identified. Electronically signed by: Vega Huff MD 05/07/2019 11:17 PM CDT Due to temporary technical issues with the PACS/Fluency reporting system, reports are being signed by the in house radiologist as a courtesy to ensure prompt reporting. The interpreting radiologist is f ully responsible for the content of the report.
== END 2019-05-08 01:23 | disposition home or self-care (01) ==
LOC: ER 20:50
DX: M25.532 Pain in left wrist (principal); M25.562 Pain in left knee; M54.2 Cervicalgia; M54.9 Dorsalgia, unspecified; W01.198A Fall on same level from slipping, tripping and stumbling with subsequent striking against other object, initial encounter; Y93.89 Activity, other specified; Y92.89 Other specified places as the place of occurrence of the external cause; Z88.2 Allergy status to sulfonamides; Z88.8 Allergy status to other drugs, medicaments and biological substances; I10 Essential (primary) hypertension; F32.9 Major depressive disorder, single episode, unspecified; F41.9 Anxiety disorder, unspecified
CPT/HCPCS: 70450; 72070; 72100; 72125; 96372; 99284; J3010

== ENCOUNTER 2020-10-16 19:55 | Emergency (ER) | payer OTHER ==
--- OUTSIDE RECORDS SUMMARY | 2020-10-16 19:57 | XMS REPORT | Continuity of Care Document ---
:1965 Author Organization [facility] t Address [address] [place] [address] Care Team Providers Name Role Phone CASEY Attending Clinician Unavailable Problems This patient has no known problems. Allergies, Adverse Reactions, Alerts This patient has no known allergies or adverse reactions. Medications This patient has no known medications. Procedures This patient has no known procedures. Encounters Start End Encounter Admission Attending Care Care Encounter Source Date/Time Date/Time Type Type Clinicians Facility Department ID 2020-05-29 2020-05-29 Outpatient [facility] [id number] 00:00:00 00:00:00 [facility] [address] 2020-05-11 2020-05-11 Outpatient [facility] [id number] 00:00:00 00:00:00 TYRELL [address] 2019-12-02 2019-12-02 Outpatient [facility] [id number] 00:00:00 00:00:00 T[facility] [address] Results This patient has no known results.
[2020-10-16] MEDS ORDERED: NA CHLORIDE 0.9% 1,000 ML ONE (20:53)
[2020-10-16 21:09] LABS: Absolute Lymphocytes (CBC) 1.2 K/uL (0.7-4.9); Basophils % 0.2 % (0-1.3); Hematocrit 42.8 % (36.0-45.0); Lymphocytes % 14.3 % (15.3-44.8); MPV 9.1 fL (7.6-11.3); RBC Red Blood Cell Count 5.45 M/uL (3.86-4.86)
[2020-10-16 21:17] LABS: Protime INR 1.19
[2020-10-16 21:19] LABS: ALT/SGPT 63 U/L (12-78); AST/SGOT 56 U/L (15-37); Albumin 3.4 g/dL (3.4-5.0); Alkaline Phosphatase 156 U/L (45-117); BUN Blood Urea Nitrogen 11 mg/dL (7-18); Bicarbonate 22 mmol/L (21-32); Bilirubin Direct 0.1 mg/dL (0-0.2); Bilirubin Total 0.4 mg/dL (0.2-1.0); Glucose Level 118 mg/dL (74-106); Magnesium 2.5 mg/dL (1.8-2.4); NT PRO-BNP 79 pg/mL (<125); Potassium 3.4 mmol/L (3.5-5.1); Protein, Total 8.1 g/dL (6.4-8.2); Sodium Level 141 mmol/L (136-145); Troponin (Emerg Dept Use Only) < 0.02 ng/mL (0.0-0.045)
[2020-10-16] MEDS ORDERED: POTASSIUM CL SA 10 MEQ TAB PO ONE (21:59)
[2020-10-16] MEDS ORDERED: HYDROCODONE/APAP 10/325 TAB ONE (22:29)
[2020-10-16 22:34] LABS: Blood O2 Saturation 99.8 % (92-98.5)
[2020-10-16 22:35] LABS: Arterial Blood Carboxyhemoglob 0.5 % (0-1.5); Blood Gas Oxyhemoglobin 99.4 % (94-97)
--- NOTE | 2020-10-16 23:35 | EDPHYS ---
Physician Documentation [facility] Name: Mary Zarco Age: 55 yrs Sex: Female : 1965 Arrival Date: 10/16/2020 Time: 19:59 Bed 19 Private MD: ED Physician Felix Salazar HPI: 10/16 20:18 This 55 yrs old Female presents to ER via EMS with unknown complaint. pkl 20:18 The patient has shortness of breath at rest. Onset: The symptoms/episode began/occurred pkl 2 day(s) ago. Associated signs and symptoms: Pertinent positives: productive cough. Patient diagnosed with positive Covid 19 10 days ago. Feeling worse 2 days ago. 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 - Social history:: Smoking status: Patient denies any tobacco usage or history of. ROS: 20:18 Eyes: Negative for injury, pain, redness, and discharge, ENT: Negative for injury, pkl pain, and discharge, Neck: Negative for injury, pain, and swelling, Cardiovascular: Negative for chest pain, palpitations, and edema. 20:18 Respiratory: Positive for cough, with clear sputum, shortness of breath, at rest. 20:18 Abdomen/GI: Positive for diarrhea. 20:18 Back: Negative for acute changes. 20:18 : Negative for urinary symptoms. 20:18 MS/extremity: Negative for acute changes. 20:18 Skin: Negative for rash. 20:18 Neuro: Negative for altered mental status, loss of consciousness. Exam: 20:18 Head/Face: Normocephalic, atraumatic. Eyes: Pupils equal round and reactive to light, pkl extra-ocular motions intact. Lids and lashes normal. Conjunctiva and sclera are non-icteric and not injected. Cornea within normal limits. Periorbital areas with no swelling, redness, or edema. ENT: Nares patent. No nasal discharge, no septal abnormalities noted. Tympanic membranes are normal and external auditory canals are clear. Oropharynx with no redness, swelling, or masses, exudates, or evidence of obstruction, uvula midline. Mucous membranes moist. Neck: Trachea midline, no thyromegaly or masses palpated, and no cervical lymphadenopathy. Supple, full range of motion without nuchal rigidity, or vertebral point tenderness. No Meningismus. Chest/axilla: Normal chest wall appearance and motion. Nontender with no deformity. No lesions are appreciated. Cardiovascular: Regular rate and rhythm with a normal S1 and S2. No gallops, murmurs, or rubs. Normal PMI, no JVD. No pulse deficits. Respiratory: Lungs have equal breath sounds bilaterally, clear to auscultation and percussion. No rales, rhonchi or wheezes noted. No increased work of breathing, no retractions or nasal flaring. Abdomen/GI: Soft, non-tender, with normal bowel sounds. No distension or tympany. No guarding or rebound. No evidence of tenderness throughout. Back: No spinal tenderness. No costovertebral tenderness. Full range of motion. Skin: Warm, dry with normal turgor. Normal color with no rashes, no lesions, and no evidence of cellulitis. MS/ Extremity: Pulses equal, no cyanosis. Neurovascular intact. Full, normal range of motion. Neuro: Awake and alert, GCS 15, oriented to person, place, time, and situation. Cranial nerves II-XII grossly intact. Motor strength 5/5 in all extremities. Sensory grossly intact. Cerebellar exam normal. Normal gait. Vital Signs: 20:04 BP 135 / 76; Pulse 82; Resp 23 S; Temp 98.8(O); Pulse Ox 94% on R/A; Weight 78.02 kg jd3 (R); Height 5 ft. 6 in. (167.64 cm) (R); Pain 4/10; 20:58 Pulse 88; Resp 17 S; Pulse Ox 94% on R/A; jd3 22:17 BP 141 / 78; Pulse 86; Resp 21 S; Pulse Ox 97% on R/A; jd3 23:19 BP 134 / 73; Pulse 80; Resp 18 S; Pulse Ox 98% on R/A; jd3 / 00:04 BP 130 / 72; Pulse 84; Resp 19 S; Pulse Ox 96% on R/A; jd3 10/16 20:04 Body Mass Index 27.76 (78.02 kg, 167.64 cm) jd3 MDM: 10/16 20:00 Patient medically screened. pkl 23:31 Data reviewed: vital signs, nurses notes, lab test result(s), EKG, radiologic studies, pkl CT scan, plain films. ED course: Discussed lab and imaging studies with patient. Advised to follow up with PCP in 2 to 3 days. To return if symptoms are worse. Patient understood instructions. 10/16 20:16 Order name: Basic Metabolic Panel pkl 10/16 20:16 Order name: CBC with Diff pkl 10/16 20:16 Order name: LFT's pkl 10/16 20:16 Order name: Magnesium pkl 10/16 20:16 Order name: NT PRO-BNP; Complete Time: 21:28 pkl 10/16 20:16 Order name: PT-INR; Complete Time: 22:12 pkl 10/16 20:16 Order name: Troponin (emerg Dept Use Only); Complete Time: 21:28 pkl 10/16 20:16 Order name: ABG; Complete Time: 23:05 pkl 10/16 20:16 Order name: D-Dimer; Complete Time: 22:12 pkl 10/16 20:16 Order name: Blood Culture Adult (2) pkl 10/16 20:16 Order name: Lactate; Complete Time: 21:28 pkl 10/16 20:16 Order name: Procalcitonin; Complete Time: 22:12 pkl 10/16 20:16 Order name: Basic Metabolic Panel; Complete Time: 21:28 EDMS 10/16 20:16 Order name: CBC with Automated Diff; Complete Time: 21:28 EDMS 10/16 20:16 Order name: XRAY Chest (1 view) pkl 10/16 20:16 Order name: EKG; Complete Time: 20:17 pkl 10/16 20:16 Order name: Cardiac monitoring; Complete Time: 20:34 pkl 10/16 20:16 Order name: EKG - Nurse/Tech; Complete Time: 21:00 pkl 10/16 20:16 Order name: IV Saline Lock; Complete Time: 21:00 pkl 10/16 20:16 Order name: Liver (Hepatic) Function; Complete Time: 21:28 EDMS 10/16 20:16 Order name: Magnesium; Complete Time: 21:28 EDMS 10/16 20:16 Order name: Stool Culture pk 10/16 21:32 Order name: CT Abd/Pelvis - IV Contrast Only pkl 10/16 21:32 Order name: CT Chest For PE Angio pkl 10/16 23:32 Order name: Urine Dipstick--Ancillary (enter results); Complete Time: 23:38 tt3 10/16 20:16 Order name: Labs collected and sent; Complete Time: 21:00 pkl 10/16 20:16 Order name: O2 Per Protocol; Complete Time: 20:34 pkl 10/16 20:16 Order name: O2 Sat Monitoring; Complete Time: 20:34 pk 10/16 22:17 Order name: Urine Dipstick-Ancillary (obtain specimen); Complete Time: 23:31 tt3 Administered Medications: 21:00 Drug: NS 0.9% 1000 ml Route: IV; Rate: 125 ml/hr; Site: left antecubital; jd3 10/17 00:14 Follow up: Response: No adverse reaction; IV Status: Order to discontinue infusion jd3 10/16 21:47 Drug: K-Dur 20 mEq Route: PO; jd3 22:40 Follow up: Response: No adverse reaction jd3 22:17 Drug: Bac[place] 10 mg-325 mg 1 tabs Route: PO; jd3 23:15 Follow up: Response: No adverse reaction; RASS: Alert and Calm (0) jd3 23:50 Drug: predniSONE 40 mg Route: PO; jd3 10/17 00:04 Follow up: Response: Medication administered at discharge. jd3 00:03 Drug: LoMOTIL 2 tabs Route: PO; jd3 00:04 Follow up: Response: Medication administered at discharge. jd3 Disposition: 10/16/20 23:35 Discharged to Home. Impression: Viral pneumonia. Gastroenteritis. - Condition is Stable. - Prescriptions for Lomotil 2.5- 0.025 mg Oral Tablet - take 2 tablets by ORAL route once daily As needed; 10 tablet. Zithromax Z- Shon 250 mg Oral Tablet - take 1 tablet by ORAL route as directed for 5 days Day 1 - take two (2) tablets one time. Day 2, 3, 4 , 5 take one (1) tablet once daily.; 6 tablet. Prednisone 20 mg Oral Tablet - take 2 tablet by ORAL route once daily for 5 days; 10 tablet. - Medication Reconciliation Form, Thank You Letter, Antibiotic Education, Prescription Opioid Use form. - Follow up: Private Physician; When: 2 - 3 days; Reason: Re-evaluation by your physician. - Problem is new. - Symptoms have improved. Signatures: Dispatcher [employer] EDDC Felix Salazar MD MD pkl Harshad Lang RN RN jd3 Trim, Ronnie tt3 Corrections: (The following items were deleted from the chart) 00:14 10/16 23:35 10/16/2020 23:35 Discharged to Home. Impression: Viral pneumonia. jd3 Gastroenteritis. Condition is Stable. Forms are Medication Reconciliation Form, Thank You Letter, Antibiotic Education, Prescription Opioid Use. Follow up: Private Physician; When: 2 - 3 days; Reason: Re-evaluation by your physician. Problem is new. Symptoms have improved. pkl
--- NOTE | 2020-10-16 23:35 | ER ---
Nurse's Notes [facility] Name: Mary Zarco Age: 55 yrs Sex: Female : 1965 Arrival Date: 10/16/2020 Time: 19:59 Bed 19 Private MD: Diagnosis: Viral pneumonia. Gastroenteritis Presentation: 10/16 19:59 Chief complaint: EMS states: "The pt is reporting being COVID positive X 10 days now, jd3 but here in the last 2 days she has been feeling worse and not getting any better. she had no fevers and her oxygen was 92-93% on room air so we placed her on 2 L nasal canula and it avi to 94-95%. the pt reported that the exertion of breathing was lessened when on the O2.". Coronavirus screen: difficulty breathing, fatigue, muscle pain, shortness of breath, Client presents with at least one sign or symptom that may indicate coronavirus-19. Standard/surgical mask placed on the client. Provider contacted for isolation considerations. Ebola Screen: Patient negative for fever greater than or equal to 101.5 degrees Fahrenheit, and additional compatible Ebola Virus Disease symptoms. Initial Sepsis Screen: Does the patient meet any 2 criteria? No. Patient's initial sepsis screen is negative. Does the patient have a suspected source of infection? No. Patient's initial sepsis screen is negative. Risk Assessment: Do you want to hurt yourself or someone else? Patient reports no desire to harm self or others. Onset of symptoms was October 06, 2020. 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 - Social history:: Smoking status: Patient denies any tobacco usage or history of. Screenin:06 Abuse screen: Denies threats or abuse. Nutritional screening: No deficits noted. jd3 Tuberculosis screening: No symptoms or risk factors identified. Fall Risk Ambulatory Aid- None/Bed Rest/Nurse Assist (0 pts). Gait- Normal/Bed Rest/Wheelchair (0 pts) Mental Status- Oriented to own ability (0 pts). Total Tavera Fall Scale indicates No Risk (0-24 pts). Assessment: 20:04 General: Appears uncomfortable, Behavior is calm, cooperative, appropriate for age. jd3 Pain: Complains of pain in head and chest Quality of pain is described as aching. Neuro: Level of Consciousness is awake, alert, obeys commands, Oriented to person, place, time, situation. Cardiovascular: Heart tones S1 S2 present Capillary refill < 3 seconds Patient's skin is warm and dry. Respiratory: Reports shortness of breath at rest Airway is patent Respiratory effort is even, shallow, Respiratory pattern is symmetrical, tachypnea. GI: Abdomen is round non-distended, Abd is soft and non tender X 4 quads. Reports nausea. : No signs and/or symptoms were reported regarding the genitourinary system. EENT: No signs and/or symptoms were reported regarding the EENT system. Derm: Skin is intact, Skin is dry, Skin is normal, Skin temperature is warm. Musculoskeletal: Circulation, motion, and sensation intact. Range of motion: intact in all extremities. 20:58 Reassessment: Patient appears in no apparent distress at this time. No changes from jd3 previously documented assessment. Patient and/or family updated on plan of care and expected duration. Pain level reassessed. 21:45 Reassessment: Patient appears in no apparent distress at this time. No changes from jd3 previously documented assessment. Patient and/or family updated on plan of care and expected duration. Pain level reassessed. 22:17 Reassessment: Patient appears in no apparent distress at this time. Patient and/or jd3 family updated on plan of care and expected duration. Pain level reassessed. Patient is alert, oriented x 3, equal unlabored respirations, skin warm/dry/pink. reporting back pain. 23:18 Reassessment: Patient appears in no apparent distress at this time. Patient and/or jd3 family updated on plan of care and expected duration. Pain level reassessed. Patient is alert, oriented x 3, equal unlabored respirations, skin warm/dry/pink. pt reporting pain feeling better, reports continued fatigue Patient states feeling better. 10/17 00:04 Reassessment: Patient appears in no apparent distress at this time. Patient and/or jd3 family updated on plan of care and expected duration. Pain level reassessed. Patient is alert, oriented x 3, equal unlabored respirations, skin warm/dry/pink. pt awaiting ride in room. pt reported feeling better. Vital Signs: 10/16 20:04 BP 135 / 76; Pulse 82; Resp 23 S; Temp 98.8(O); Pulse Ox 94% on R/A; Weight 78.02 kg jd3 (R); Height 5 ft. 6 in. (167.64 cm) (R); Pain 4/10; 20:58 Pulse 88; Resp 17 S; Pulse Ox 94% on R/A; jd3 22:17 BP 141 / 78; Pulse 86; Resp 21 S; Pulse Ox 97% on R/A; jd3 23:19 BP 134 / 73; Pulse 80; Resp 18 S; Pulse Ox 98% on R/A; jd3 10/17 00:04 BP 130 / 72; Pulse 84; Resp 19 S; Pulse Ox 96% on R/A; jd3 10/16 20:04 Body Mass Index 27.76 (78.02 kg, 167.64 cm) jd3 ED Course: 10/16 19:59 Patient arrived in ED. jd3 19:59 Felix Salazar MD is Attending Physician. pkl 20:02 Triage completed. jd3 20:04 Arm band placed on. jd3 20:06 Patient has correct armband on for positive identification. Bed in low position. Call jd3 light in reach. Side rails up X 1. Adult w/ patient. Pulse ox on. NIBP on. 20:30 Harshad Lang, RN is Primary Nurse. jd3 20:33 Stool Sample collected per MD orders. jp3 20:34 Stool Culture Sent. jp3 20:58 Inserted saline lock: 20 gauge in left antecubital area, using aseptic technique. Blood jd3 collected. 20:59 XRAY Chest (1 view) In Process Unspecified. EDMS 21:02 apparel machinery instructor on. jp3 21:02 EKG done, by ED staff, reviewed by Felix Salazar MD. jp3 22:24 CT Abd/Pelvis - IV Contrast Only In Process Unspecified. EDMS 22:24 CT Chest For PE Angio In Process Unspecified. EDMS 10/17 00:04 No provider procedures requiring assistance completed. IV discontinued, intact, jd3 bleeding controlled, No redness/swelling at site. Pressure dressing applied. Administered Medications: 10/16 21:00 Drug: NS 0.9% 1000 ml Route: IV; Rate: 125 ml/hr; Site: left antecubital; jd3 10/17 00:14 Follow up: Response: No adverse reaction; IV Status: Order to discontinue infusion jd3 10/16 21:47 Drug: K-Dur 20 mEq Route: PO; jd3 22:40 Follow up: Response: No adverse reaction jd3 22:17 Drug: [place] 10 mg-325 mg 1 tabs Route: PO; jd3 23:15 Follow up: Response: No adverse reaction; RASS: Alert and Calm (0) jd3 23:50 Drug: predniSONE 40 mg Route: PO; jd3 10/17 00:04 Follow up: Response: Medication administered at discharge. jd3 00:03 Drug: LoMOTIL 2 tabs Route: PO; jd3 00:04 Follow up: Response: Medication administered at discharge. jd3 Outcome: 10/16 23:35 Discharge ordered by . pktunde 10/17 00:04 Condition: stable jd3 00:13 Discharged to home via wheelchair, with family. jd3 00:13 Discharge instructions given to patient, Instructed on discharge instructions, follow up and referral plans. medication usage, Demonstrated understanding of instructions, follow-up care, medications, Prescriptions given X 3. 00:14 Patient left the ED. jd3 Signatures: Dispatcher [employer] Felix Hernandes MD MD pkl Davies, Jonathon RN RN jd3 Ge Murrell jp3
[2020-10-16 23:37] LABS: Urine Blood TRACE (NEG); Urine Glucose NEGATIVE (NEG); Urine Protein TRACE (NEG)
[2020-10-16] MEDS ORDERED: predniSONE 20 MG TAB ONE (23:58)
[2020-10-17] MEDS ORDERED: DIPHENOX/ATROP SULF 1 TAB PO ONE (00:09)
[2020-10-17 00:44] VITALS: TEMP 98.8
[2020-10-17 00:50] VITALS: BP 130/72; O2SAT 96
--- NOTE | 2020-10-17 08:57 | RAD REPORT ---
EXAM DESCRIPTION: [place] Single View10/16/2020 8:59 pm CLINICAL HISTORY: Cough COMPARISON: 2018 FINDINGS: Moderate bilateral pulmonary opacities. . The heart is normal size IMPRESSION: Moderate bilateral pulmonary opacities likely pneumonia
--- NOTE | 2020-10-17 14:06 | EKG ---
Test Date: 2020-10-16 Test Time: 20:55:26 Property Economist: [facility] MEASUREMENT RESULTS: Intervals: Rate: 85 SC: 136 QRSD: 78 QT: 370 QTc: 440 Bell: P: 59 SC: 136 QRS: 54 T: 19 INTERPRETIVE STATEMENTS: Normal sinus rhythm Normal ECG Compared to ECG 01/01/2016 07:22:22 Sinus bradycardia no longer present Sinus arrhythmia no longer present ST (T wave) deviation no longer present Possible ischemia no longer present Electronically Signed On 10-17-20 14:04:42 DRAW OFF WORKER by Lino Trevino
--- NOTE | 2020-10-18 14:00 | RAD REPORT ---
EXAM DESCRIPTION: CT - Chest For Pe Angio - 10/17/2020 6:45 am CLINICAL HISTORY: The patient is 55 years old and is Female; DYSPNEA TECHNIQUE: Axial computed tomographic angiography images of the chest with intravenous contrast. S agittal and coronal reformatted images were created and reviewed. This CT exam was performed using one or more of the following dose reduction techniques: automated exposure control, adjustment of t he mA and/or kV according to patient size, and/or use of iterative reconstruction technique. MIP reconstructed images were created and reviewed. COMPARISON: No relevant prior studies available. FINDINGS: PULMONARY ARTERIES: There are no obvious filling defects identified within the pulmonary arteries to suggest pulmonary embolism. AORTA: No acute findings. No thoracic aortic aneurysm. LUNGS: Patchy groundglass peripheral and linear opacities are noted throughout the lungs. Calcifi ed granuloma within the lower lobes are present. The tracheobronchial tree is widely patent. PLEURAL SPACE: Unremarkable. No significant effusion. No pneumothorax. HEART: Unremarkable. No cardiomegaly. No significant pericardial effusion. No evidence of R V dysfunction. BONES/JOINTS: No acute fracture. No dislocation. SOFT TISSUES: Unremarkable. LYMPH NODES: Unremarkable. No enlarged lymph nodes. OTHER FINDINGS: Postsurgical change of the chest is noted. IMPRESSION: 1. No evidence of pulmonary embolism. 2. Commonly reported imaging features of viral pneumonia are present. Other processes such as influ iveth pneumonia and organizing pneumonia, as can be seen with drug toxicity and connective tissue dise ase, can cause a similar imaging pattern. PneTyp Reference: https://pubs.rsna.org/doi/full/10.1148/ryct.[email or web address] Electronically signed by: Gloria Roberson MD 10/16/2020 10:38 PM SMELTER CHARGER Due to temporary technical issues with the PACS/Fluency reporting system, reports are being signed by the in house radiologists without review as a courtesy to insure prompt reporting. The interpreting radiologist is fully responsible for the content of the report.
--- NOTE | 2020-10-18 14:01 | RAD REPORT ---
EXAM DESCRIPTION: CT - Abdomen Pelvis W Contrast - 10/17/2020 6:46 am CLINICAL HISTORY: The patient is 55 years old and is Female; ABD PAIN TECHNIQUE: Axial computed tomography images of the abdomen and pelvis with intravenous contrast. S agittal and coronal reformatted images were created and reviewed. This CT exam was performed using one or more of the following dose reduction techniques: automated exposure control, adjustment of t he mA and/or kV according to patient size, and/or use of iterative reconstruction technique. COMPARISON: No relevant prior studies available. FINDINGS: LUNG BASES: Calcified granuloma within the right lower lobe are present. Areas of line ar irregular densities in the lung bases are present. ABDOMEN: LIVER: Unremarkable. No mass. GALLBLADDER AND BILE DUCTS: Surgical clips are present in the right upper quadrant, consistent wi th previous cholecystectomy. PANCREAS: No ductal dilation. No mass. SPLEEN: Several splenic granuloma are present. ADRENALS: Unremarkable. No mass. KIDNEYS AND URETERS: Unremarkable. The kidneys enhance symmetrically. No obstructing renal or ure teral calculus is seen. No hydronephrosis or hydroureter. No perinephric fluid or stranding. STOMACH AND BOWEL: Stomach is minimally filled with fluid. The small bowel is decompressed. Minim al stool is noted throughout the colon. There is no mucosal thickening or evidence of bowel obstructi on. PELVIS: APPENDIX: The appendix is normal in caliber without surrounding inflammation. BLADDER: Unremarkable. No mass. REPRODUCTIVE: The patient is status post hysterectomy. ABDOMEN and PELVIS: INTRAPERITONEAL SPACE: Unremarkable. No free air. No significant fluid collection. BONES/JOINTS: Postsurgical change of the lumbar spine is present. Spinal rods and pedicle screws from L2 through S1 are noted. SOFT TISSUES: Evidence of prior anterior abdominal wall repair is noted. VASCULATURE: Unremarkable. No abdominal aortic aneurysm. LYMPH NODES: Unremarkable. No enlarged lymph nodes. IMPRESSION: Liquid stool throughout the colon which can be seen with a clinical history of diarrhea. There is no mucosal thickening however to suggest superimposed infectious process. No bowel obstruct ion. Electronically signed by: Gloria Roberson MD 10/16/2020 10:37 PM SALES ACTIVITY MANAGER Due to temporary technical issues with the PACS/Fluency reporting system, reports are being signed by the in house radiologists without review as a courtesy to insure prompt reporting. The interpreting radiologist is fully responsible for the content of the report.
== END 2020-10-17 00:14 | disposition home or self-care (01) ==
LOC: ER 19:55
DX: J12.89 Other viral pneumonia (principal); K52.9 Noninfective gastroenteritis and colitis, unspecified; I10 Essential (primary) hypertension; Z88.2 Allergy status to sulfonamides
CPT/HCPCS: 96361; 93005; 87040 ×2; 87045; 85025; 80048; 36415; 83735; 85610; 85379; 80076; 87046; 83605; 81003; 84484; 84145; 83880; 71275; 74177; 71045; 82805; 96360; 99285; Q9967; J7030; J7512

== ENCOUNTER 2022-10-19 18:41 | Inpatient (IN) | payer OTHER ==
--- OUTSIDE RECORDS SUMMARY | 2022-10-19 18:45 | XMS REPORT | Continuity of Care Document ---
:1965 Author Organization [facility] t Address [address] [place] [address] Care Team Providers Name Role Phone Tyrell Nieto MD Primary Care Physician [phone] Jose Thornton Attending Clinician TYRELL NIETO Attending Clinician Unavailable Problems Condition Condition Condition Status Onset Resolution Last Treating Co mments Source Name Details Category Date Date Treatment Clinician Date Chronic Chronic Disease Active 2017-10 [facility] pain pain 2-04 st syndrome syndrome 00:00: Hospit a 00 l Breast Breast Disease Active [facility] cancer, cancer, 5-22 st right right 00:00: Hospita breast breast 00 l Electroenc Electroen Problem Active 2016-102022-10-14 [facility] ephalogram cephalogra 2- 09:59:11 l abnormal m abnormal 00:00: Rush jacome (finding) (finding) 00 Active 09/20/2017 Problem 10/14/2022 [facility] Amnesia Amnesia Problem Active 2016-102022-10-14 Me moria (finding) (finding) 10-30 09:59:11 l Active 00:00: Daron 08/30/2017 00 Problem 10/14/2022 [facility] Lumbar Lumbar Problem Active 2022-10-14 Mem oria radiculopa radiculopa - 09:59:11 l thy thy 00:00: Daron (disorder) (disorder) 00 Active 12/28/2016 Problem 10/14/2022 [facility] Neck pain Neck pain Problem Active 2022-10-14 Memoria (finding) (finding) 3-15 09:59:11 l Active 00:00: [place] 12/28/2016 00 Problem 10/14/2022 [facility] Major Major Problem Active 2022-10-14 Memor ia depression depression 1-12 09:59:11 l , single , single 00:00: Shawn n episode episode 00 (disorder) (disorder) Active 10/27/2016 Problem 10/14/2022 [facility] Paresthesi Paresthes Problem Active 2022-10-14 Memoria a ia 1- 09:59:11 l (finding) (finding) 00:00: Herm naa Active 00 10/27/2016 Problem 10/14/2022 [facility] Type II Type II Problem Active 2022-10-14 Me moria diabetes diabetes 1- 09:59:11 l mellitus mellitus 00:00: Shawn reyes without without 00 complicati complicati on on (disorder) (disorder) Active 10/27/2016 Problem 10/14/2022 [facility] Essential Essential Problem Active 2022-10-14 [facility] hypertensi hypertensi 4-20 09:59:11 l on on 00:00: Daron (disorder) (disorder) 00 Active 02/03/2016 Problem 10/14/2022 [facility] Essential Essential Problem Active 2022-10-14 [facility] tremor tremor 4-20 09:59:11 l (disorder) (disorder) 00:00: Primitivo black Active 00 02/03/2016 Problem 10/14/2022 [facility] Lumbosacra Lumbosacr Problem Active 2022-10-14 Memoria l al 4-20 09:59:11 l spondylosi spondylosi 00:00: He wayne s without s without 00 myelopathy myelopathy (disorder) (disorder) Active 02/03/2016 Problem 10/14/2022 [facility] Carpal Carpal Problem Active 2022-10-14 Ananda miles tunnel tunnel 09:59:11 l syndrome syndrome Shawn n (disorder) (disorder) Active Problem 10/14/2022 [facility] Ganglion Ganglion Problem Active 2022-10-14 Memoria of wrist of wrist 09:59:11 l (disorder) (disorder) He nicolasann Active Problem 10/14/2022 [facility] Peripheral Periphera Problem Resolve 2022-01-30 2022-01-30 Memoria vertigo l vertigo d 02-02 03:23:35 03:23:35 l (disorder) (disorder) 00:00: He rmann Resolved 00 02/03/2016 Problem 01/30/2022 [facility] Allergies, Adverse Reactions, Alerts Allergy Allergy Status Severity Reaction(s) Onset Inactive Treating Comm ents Source Name Type Date Date Clinician Hydromor Propensi Active Anaphylaxis halucina t Methodi phone ty to 5-[address] adverse 00:00: severe Hospita reaction 00 l s to drug Other Propensi Active Palpitations ANTI Me thodi ty to 4-[address] adverse 00:00: N Hospita reaction 00 MEDICATIO l s N - NAME UNKNOWN.A NTI-INFLA MMATORY MEDICATIO NS- SHUTS DOWN KIDNEYS Sulfa Propensi Active Itching [facility] (Sulfona ty to 10 st mide adverse 00:00: Hospita Antibiot reaction 00 l ics) s to drug sulfa sulfa Active [facility] drugs drugs l [place] Fetzima Fetzima Active Memoria l [place] Family History Family Member Diagnosis Comments Start Date Stop Date Source Natural father Aneurysm [facility] Natural mother Diabetes [facility] Natural mother Heart attack [facility] Natural mother Heart failure [facility] Social History Social Habit Start Date Stop Date Quantity Comments Source Alcohol intake 2019-07-05 2019-07-05 Current drinker [facility] 00:00:00 00:00:00 of [facility] (finding) Alcohol Comment 2019-06-26 2019-06-26 one drink a month [facility] 00:[facility]:00 Hospital Tobacco use and 2018-02-19 2018-02-19 Smokeless tobacco [facility] exposure 00:00:00 00:00:00 non-user Hospital Sex Ass[birth year] At [birth year] [facility] 00:[facility]:00 Hospital Smoking Status Start Date Stop Date Source Tobacco smoking status [facility] Medications Ordered Filled Start Stop Current Ordering Indication Dosage Frequency Signature Comments Components Source Medication Medication Date Date Medication? Clinician (SIG) Name Name losartan 2021-10 Yes PO, Daily, Mem oria 2-27 0 l 19:59: Refill(s) Daron 00 hydrochloro 2021-10 Yes TAKE 1 Ananda miles thiazide-lo 2-27 TABLET BY tunde levin 12.5 19:49: MOUTH Neha nn mg-100 mg 00 EVERY DAY oral tablet FOR 90 DAYS propranolol 2021-10 Yes 80 mg = 1 M emoria 80 mg oral 1-03 tab, PO, l tablet 18:46: BID, # 180 Neha nn 00 tab, 1 Refill(s), Pharmacy: [facility] #[id number], 167.64, cm, 08/05/22 14:04:00 CDT, Height, 99.091, kg, 08/05/22 14:04:00 CDT, Weight propranolol 2021-10 Yes 80 mg = 1 M emoria 80 mg oral 0-21 tab, PO, l tablet 19:15: BID, # 180 Neha nn 00 tab, 1 Refill(s), Pharmacy: [facility] #[id number], 167.64, cm, 08/05/22 14:04:00 CDT, Height, 99.091, kg, 08/05/22 14:04:00 CDT, Weight propranolol Yes 60 mg = 1 M emoria 60 mg oral 4-14 tab, PO, l tablet 15:16: BID, # 180 Neha nn 00 tab, 2 Refill(s), Pharmacy: [facility] [place], 167.64, cm, 01/27/22 9:51:00 CDT, Height, 97.278, kg, 01/27/22 9:51:00 CDT, Weight Trokendi XR 2020-10 Yes 100 mg = 1 Memoria 100 mg oral 1-22 cap, PO, l capsule, 17:45: Daily, # Neha nn extended 00 90 cap, 3 release Refill(s), Pharmacy: [facility] [place], 167.64, cm, 07/21/21 15:10:00 CDT, Height, 91.818, kg, 07/21/21 15:10:00 CDT, Weight propranolol 2020-10 Yes 40 mg = 1 M emoria 40 mg oral 1-17 tab, PO, l tablet 21:17: BID, # 180 Neha nn 00 tab, 1 Refill(s), Pharmacy: [facility] Pharm[facility] [place], 167.64, cm, 07/21/21 15:10:00 CDT, Height, 91.818, kg, 07/21/21 15:10:00 CDT, Weight 24 HR 2020-10 Yes 100 mg = 1 Memori a topiramate 1-17 cap, PO, l 100 MG 21:17: Daily, # Daron Extended 00 90 cap, 1 Release Refill(s), Capsule Pharmacy: [[facility]] [facility] Pharm[facility] [place], 167.64, cm, 07/21/21 15:10:00 CDT, Height, 91.818, kg, 07/21/21 15:10:00 CDT, Weight 24 HR 2020-10 No 100 mg = 1 Memori a topiramate 1-17 cap, PO, l 100 MG 21:16: Daily, X Daron Extended 90 day, # Release 90 cap, 1 Capsule Refill(s), [Trokendi] Pharmacy: [facility] #[id number], 167.64, cm, 07/21/21 15:10:00 CDT, Height, 91.818, kg, 07/21/21 15:10:00 CDT, Weight 24 HR Yes 100 mg = 1 Memori a topiramate 8-23 cap, PO, l 100 MG 21:02: Daily, # Daron Extended 00 90 cap, 1 Release Refill(s), Capsule Pharmacy: [[facility]] [id number], 165.1, cm, 06/07/21 15:16:00 CDT, Height, 89.273, kg, 06/07/21 15:16:00 CDT, Weight propranolol 2020-0 Yes 40 mg = 1 M emoria 40 mg oral 7-01 tab, PO, l tablet 17:07: BID, # 180 Neha nn 00 tab, 1 Refill(s), Pharmacy: [facility][id number], 170.18, cm, 04/15/21 11:37:00 CDT, Height, 89.545, kg, 04/15/21 11:37:00 CDT, Weight topiramate 2020-0 Yes 100 mg = 1 M emoria 100 MG Oral 7 tab, PO, l Tablet 17:06: BID, # 180 Neha nn [Topamax] 00 tab, 1 Refill(s), Pharmacy: [facility] #[id number], 170.18, cm, 04/15/21 11:37:00 CDT, Height, 89.545, kg, 04/15/21 11:37:00 CDT, Weight propranolol No 20 mg = 1 M emoria 20 mg oral 3-31 tab, PO, l tablet 18:55: BID, X 90 Shawn n 00 day, # 180 tab, 1 Refill(s), other propranolol 0 No 20 mg = 1 M emoria 20 mg oral 3-31 tab, PO, l tablet 18:54: BID, # 180 Neha nn 00 tab, 1 Refill(s), other topiramate No 100 mg = 1 M emoria 100 mg oral 3-31 tab, PO, l tablet 18:46: BID, # 180 Neha nn 00 tab, 3 Refill(s), other, 167.64, cm, 01/13/21 13:25:00 CDT, Height, 80.909, kg, 01/13/21 13:25:00 CDT, Weight topiramate 0 Yes 100 mg = 1 M emoria 100 MG Oral 3-31 tab, PO, l Tablet 18:45: BID, 3 [place] [Topamax] 00 Refill(s) Acetaminoph 0 No 1 tab, PO, Memoria en 325 MG / 01-13 Q6H, 0 l benzhydroco 18:44: Refill(s) H ermann done 4.08 00 MG Oral Tablet Hydroxyzine 0 Yes 25 mg = 1 M emoria Hydrochlori 3- cap, PO, l de 25 MG 18:44: QID, 0 [place] Oral 00 Refill(s) Capsule hydrOXYzine 0 Yes 25 mg = 1 M emoria pamoate 25 3- cap, PO, l mg oral 18:44: QID, 0 Daron capsule 00 Refill(s) atorvastati 0 Yes 40 mg = 1 M emoria n 40 MG 3-31 tab, PO, l Oral Tablet 18:33: Bedtime, # Daron [Lipitor] 00 30 tab, 0 Refill(s) Lipitor 40 Yes 40 mg = 1 Me moria mg oral 3-31 tab, PO, l tablet 18:33: Bedtime, # Neha nn 00 30 tab, 0 Refill(s) atorvastati 2020-0 Yes 40mg QD Take 40 mg Methodi n (LIPITOR) 7-[address] 40 MG 15:36: nightly. Hospita tablet 57 l nadolol 2020-0 Yes 40mg QD Take 40 mg Meth estrella (CORGARD) 7-[address] 40 MG 15:36: daily. Hospita tablet 57 l vortioxetin 2020-0 Yes 20mg QD Take 20 mg Methodi e 7-[address] (TRINTELLIX 15:36: daily. Hosp akbar ) 20 mg 57 l tablet FEXOFENADIN 2020-0 Yes 1{tbl} QD Take 1 Me thodi E HCL 7-[address] (TALISHA 15:36: mouth Hospita ORAL) 57 daily. l montelukast 2020-0 Yes 10mg QD Take 10 mg Methodi (SINGULAIR) 7-[address] 10 mg 15:36: nightly. Hospita tablet 57 l HYDROcodone 2020-0 Yes 2{tbl} Q.5D Take 2 Me thodi -acetaminop 7-[address] hen (NORCO) 15:36: mouth 2 Hos kevan 10-325 mg 57 (two) l per tablet times a day. naloxegol 2020-0 Yes 25mg QD Take 25 mg Me thodi (MOVANTIK) 7-[address] 25 mg 15:36: daily. Hospita tablet 57 l tablet liraglutide 2020-0 Yes 1.8mg QD Inject 1.8 Methodi (VICTOZA) 7-[address] 0.6 mg/0.1 15:36: the skin Hos kevan mL (18 mg/3 57 daily with l mL) pen breakfast. injector omeprazole 2020-0 Yes 20mg QD Take 20 mg M ethodi (PriLOSEC) 7-[address] 20 MG 15:36: daily. Hospita capsule 57 l multivitami 2020-0 Yes 1{tbl} QD Take 1 Me thodi n 05-[address] (THERAGRAN) 15:36: mouth Hospi ta tablet 57 daily. l Lactobacill 2020-0 Yes 1{capsu QD Take 1 M ethodi us 05-11 le} capsule by st acidophilus 15:36: mouth Hospi ta (PROBIOTIC 57 daily. l ACIDOPHILUS ORAL) pregabalin 2020-0 Yes 75mg [id number] Take 75 mg Methodi (LYRICA) 75 05-11 [id number] mouth [address] MG capsule 15:36: 3D (three) Hosp akbar 57 times a l day. topiramate 2020-0 Yes 50mg Q.5D Take 50 mg M ethodi (TOPAMAX) 05-[address] 50 MG 15:36: (two) Hospita tablet 57 times a l day. nadolol 40 2019-0 Yes = 1 tab, Mem oria mg oral 5-26 PO, Daily, l tablet 19:38: # 90 tab, Shawn n 00 2 Refill(s), Pharmacy: [facility] topiramate 2020-0 Yes 100 mg = 1 M emoria 100 mg oral 1-17 tab, PO, l tablet 15:54: BID, # 180 Neha nn 00 tab, 3 Refill(s), Pharmacy: [id number] topiramate 2018-1 Yes 100 mg = 1 M emoria 100 mg oral 2-11 tab, PO, l tablet 18:08: BID, # 60 Shawn n 00 tab, 4 Refill(s), Pharmacy: [id number] pregabalin 2019-0 Yes 75 mg = 1 Me moria 75 MG Oral 8-09 cap, PO, l Capsule 14:26: TID, # 90 Neha nn [Lyrica] 00 cap, 0 Refill(s) Lyrica 75 2019-0 Yes 75 mg = 1 Mem oria mg oral 8-09 cap, PO, l capsule 14:26: TID, # 90 Neha nn 00 cap, 0 Refill(s) losartan 25 2018-0 Yes 25 mg = 1 M emoria mg oral 6-28 tab, PO, l tablet 19:38: Daily, # Daron 00 30 tab, 0 Refill(s) nadolol 40 2018-0 Yes 40 mg = 1 Me moria mg oral 6-28 tab, PO, l tablet 19:36: Daily, # Daron 00 90 tab, 2 Refill(s), Pharmacy: [facility] #[id number] topiramate Yes 50 mg = 1 Me moria 50 MG Oral 4-18 tab, PO, l Tablet 15:05: BID, # 180 Neha nn [Topamax] 29 tab, 3 Refill(s), Pharmacy: [facility] #[id number] topiramate 2017-10 No 50 mg = 2 Me moria 25 MG Oral 2-20 tab, PO, l Tablet 19:43: Bedtime, # Neha nn [Topamax] 00 180 tab, 2 Refill(s), Pharmacy: [facility] #[id number] Deplin 2017-10 Yes PO, Daily, Memor ia 2-20 0 l 19:43: Refill(s) [place] 00 nadolol 20 2017-10 Yes 20 mg = 1 Me moria mg oral 0-15 tab, PO, l tablet 21:45: Daily, # Daron 25 90 tab, 3 Refill(s), Pharmacy: [facility] #[id number] acetaminoph Yes 1 tab, PO, Memoria en-hydrocod 5-17 Q6H, 0 l one 325 14:27: Refill(s) Neha nn mg-10 mg 00 oral tablet Victoza 18 Yes 1.8 mg, Ananda miles mg/3 mL 5-16 SUB-Q, l subcutaneou 16:04: Daily, 0 He rmann s injection 00 Refill(s) Talisha Yes PO, 0 Memoria 3-09 Refill(s) l 17:13: [place] Vitamin D3 Yes 0 Memoria 3-09 Refill(s) l 17:13: [place] 00 Vitamin B12 Yes 0 Memori a 3-09 Refill(s) l 17:13: [place] 00 cyclobenzap Yes 10 mg = 1 M emoria rine 10 mg 3-09 tab, PO, l oral tablet 17:13: TID, 0 Herm naa 00 Refill(s) Byetta 10 Yes 10 Memoria mcg/0.04 mL 3-09 microgram l subcutaneou 17:13: = 0.04 mL, Daron s solution 00 SUB-Q, BID, # 2.4 mL, 3 Refill(s) Trintellix 2017- Yes 20 mg = 2 Me moria 10 mg oral 309 tab, PO, l tablet 17:13: Daily, 0 Daron 00 Refill(s) meclizine 2017- Yes 12.5 mg = Mem oria 12.5 mg 309 1 tab, PO, l oral tablet 17:13: TID, 0 Herm naa 00 Refill(s) Vital Signs Vital Name Observation Time Observation Value Comments Source Systolic (mm Hg) 2022-10-11 19:40:00 Ananda rial [place] Diastolic (mm Hg) 2022-10-11 19:40:00 Mem orial [place] Heart Rate 2022-10-11 19:40:00 [facility] [place] Height 2022-10-11 19:40:00 5 [ft_i] [facility] [place] Weight 2022-10-11 19:40:00 [facility] [place] BMI Calculated 2022-10-11 19:40:00 Memori al [place] Systolic (mm Hg) 2022-08-05 18:43:00 Ananda rial [place] Diastolic (mm Hg) 2022-08-05 18:43:00 Mem orial [place] Heart Rate 2022-08-05 18:43:00 [facility] [place] Height 2022-08-05 18:43:00 5 [ft_i] [facility] [place] Weight 2022-08-05 18:43:00 [facility] [place] BMI Calculated 2022-08-05 18:43:00 Memori al [place] Systolic (mm Hg) 2022-01-27 14:51:00 Ananda rial [place] Diastolic (mm Hg) 2022-01-27 14:51:00 Mem orial [place] Heart Rate 2022-01-27 14:51:00 [facility] [place] Respitory Rate 2022-01-27 14:51:00 Memori al [place] Height 2022-01-27 14:51:00 167.64 cm [facility] [place] Weight 2022-01-27 14:51:00 [facility] [place] BMI Calculated 2022-01-27 14:51:00 Memori al [place] Systolic (mm Hg) 2021-07-21 20:03:00 Ananda rial [place] Diastolic (mm Hg) 2021-07-21 20:03:00 Mem orial [place] Heart Rate 2021-07-21 20:03:00 [facility] [place] Respitory Rate 2021-07-21 20:03:00 Memori al [place] Height 2021-07-21 20:03:00 167.64 cm [facility] [place] Weight 2021-07-21 20:03:00 [facility] [place] BMI Calculated 2021-07-21 20:03:00 Memori al [place] Systolic (mm Hg) 2021-06-07 20:08:00 Ananda rial [place] Diastolic (mm Hg) 2021-06-07 20:08:00 Mem orial [place] Heart Rate 2021-06-07 20:08:00 [facility] [place] Respitory Rate 2021-06-07 20:08:00 Memori al [place] Height 2021-06-07 20:08:00 165.1 cm [facility] [place] Weight 2021-06-07 20:08:00 [facility] [place] BMI Calculated 2021-06-07 20:08:00 Memori al [place] Systolic (mm Hg) 2021-04-15 16:26:00 Ananda rial [place] Diastolic (mm Hg) 2021-04-15 16:26:00 Mem orial [place] Heart Rate 2021-04-15 16:26:00 [facility] [place] Respitory Rate 2021-04-15 16:26:00 Memori al [place] Height 2021-04-15 16:26:00 170.18 cm [facility] [place] Weight 2021-04-15 16:26:00 [facility] [place] BMI Calculated 2021-04-15 16:26:00 Memori al [place] Systolic (mm Hg) 2021-01-13 18:11:00 Ananda rial [place] Diastolic (mm Hg) 2021-01-13 18:11:00 Mem orial [place] Heart Rate 2021-01-13 18:11:00 [facility] [place] Respitory Rate 2021-01-13 18:11:00 Memori al [place] Height 2021-01-13 18:11:00 167.64 cm [facility] [place] Weight 2021-01-13 18:11:00 [facility] [place] BMI Calculated 2021-01-13 18:11:00 Memori al [place] Systolic (mm Hg) 2020-04-30 13:29:00 Ananda rial [place] Diastolic (mm Hg) 2020-04-30 13:29:00 Mem orial [place] Heart Rate 2020-04-30 13:29:00 [facility] [place] Respitory Rate 2020-04-30 13:29:00 Memori al [place] Height 2020-04-30 13:29:00 167.64 cm [facility] [place] Weight 2020-04-30 13:29:00 [facility] [place] BMI Calculated 2020-04-30 13:29:00 Memori al [place] Systolic (mm Hg) 2020-03-10 19:24:00 Ananda rial [place] Diastolic (mm Hg) 2020-03-10 19:24:00 Mem orial [place] Heart Rate 2020-03-10 19:24:00 [facility] [place] Respitory Rate 2020-03-10 19:24:00 Memori al [place] Height 2020-03-10 19:24:00 167.64 cm [facility] [place] Weight 2020-03-10 19:24:00 [facility] [place] BMI Calculated 2020-03-10 19:24:00 Memori al [place] Systolic (mm Hg) 2019-09-25 17:42:00 Ananda rial [place] Diastolic (mm Hg) 2019-09-25 17:42:00 Mem orial [place] Heart Rate 2019-09-25 17:42:00 [facility] [place] Respitory Rate 2019-09-25 17:42:00 Memori al [place] Height 2019-09-25 17:42:00 167.64 cm [facility] [place] Weight 2019-09-25 17:42:00 [facility] [place] BMI Calculated 2019-09-25 17:42:00 Memori al [place] BMI Calculated 2019-05-24 14:09:00 Memori al [place] Weight 2019-05-24 14:09:00 [facility] [place] Height 2019-05-24 14:09:00 167.64 cm [facility] [place] Heart Rate 2019-05-24 14:09:00 [facility] [place] Respitory Rate 2019-05-24 14:09:00 Memori al [place] Systolic (mm Hg) 2019-05-24 14:09:00 Ananda rial [place]aron Diastolic (mm Hg) 2019-05-24 14:09:00 Mem orial [place] Weight 2019-04-12 19:22:00 [facility] [place] BMI Calculated 2019-04-12 19:22:00 Memori al [place] Height 2019-04-12 19:22:00 167.64 cm [facility] [place] Heart Rate 2019-04-12 19:22:00 [facility] [place] Respitory Rate 2019-04-12 19:22:00 Memori al [place] Systolic (mm Hg) 2019-04-12 19:22:00 Ananda rial [place] Diastolic (mm Hg) 2019-04-12 19:22:00 Mem orial [place] Height 2018-10-04 19:21:00 167.64 cm [facility] [place] Weight 2018-10-04 19:21:00 [facility] [place] BMI Calculated 2018-10-04 19:21:00 Memori al [place] Systolic (mm Hg) 2018-10-04 19:21:00 Ananda rial [place] Diastolic (mm Hg) 2018-10-04 19:21:00 Mem orial [place] Heart Rate 2018-10-04 19:21:00 [facility] [place] Respitory Rate 2018-10-04 19:21:00 Memori al [place] Procedures Procedure Date / Time Performed Performing Clinician [facility] e Spinal cord stimulation [facility] Plan of Care Planned Activity Planned Date Details Comments Source Future Scheduled 2022-10-06 COVID-19 VACCINE (#1) [facility] Test 13:32:09 [code = COVID-19 VACCINE (#1)] Future Scheduled 2022-10-06 Hepatitis C screening [facility] Test 13:32:09 (procedure) [code = 629799386] Future Scheduled 2022-10-06 Screening for [facility] Test 13:32:09 malignant neoplasm of cervix (procedure) [code = 648158608] Future Scheduled 2022-10-06 COLONOSCOPY SCREENING [facility] Test 13:32:09 [code = COLONOSCOPY SCREENING] Future Scheduled 2022-10-06 SHINGLES VACCINES (1 [facility] Test 13:32:09 of 2) [code = SHINGLES VACCINES (1 of 2)] Future Scheduled 2022-10-06 BREAST CANCER [facility] Test 13:32:09 SCREENING [code = BREAST CANCER SCREENING] Future Scheduled 2022-10-06 [facility]FLUENZA [facility]ACCINE [facility] Test 13:32:09 [code = INFLUENZA VACCINE] Encounters Start End Encounter Admission Attending Care Care Encounter Source Date/Time Date/Time Type Type Clinicians Facility Department ID 2023-03-10 2023-03-10 Outpatient MHIE MHIE [id number] Memoria 13:00:00 13:00:00 25 tunde Daron 2022-10-11 2022-10-12 Outpatient MHIE MNA [id number] Memoria 19:30:00 05:59:59 Neurology 24 tunde [place] 2022-10-11 2022-10-11 Outpatient HERMELINDO Thornton MISCHER [id number] 13:30:00 23:59:59 Jose 24 [place] 2022-10-11 2022-10-11 Outpatient MHIE MHIE [id number] Memoria 13:30:00 13:30:00 24 tunde [place]aron 2022-08-05 2022-08-06 Outpatient nullFlavo MNA [id number] Memoria 18:30:00 04:59:59 r Neurology 23 l Sudarshan Neri 2022-08-05 2022-08-05 [id number] 13:30:00 23:59:59 Jose 23 [place] 2022-08-05 2022-08-05 Outpatient MHIE MHIE [id number] Memoria 13:30:00 13:30:00 23 tunde [place]aron 2022-08-03 2022-08-03 Ambulatory nullFlavo MNA [id number] Memoria 18:15:00 18:15:00 Pre-Reg r Neurology 22 tunde Sudarshan Neri 2022-08-03 2022-08-03 Outpatient HERMELINDO ThorntonSCHER [id number] 13:15:00 13:15:00 Jose 22 [place] 2022-06-02 2022-06-02 Outpatient MHIE MHIE [id number] Memoria 15:00:00 15:00:00 22 tunde [place] 2022-01-27 2022-01-28 Outpatient nullFlavo MNA [id number] Memoria 14:45:00 04:59:59 r Neurology 21 l Sudarshan Neri 2022-01-27 2022-01-27 Outpatient HERMELINDO ThorntonMISCHER [id number] 09:45:00 23:59:59 Jose 21 [place] 2022-01-27 2022-01-27 Outpatient MHIE MHIE [id number] Memoria 09:45:00 09:45:00 21 tunde Neri 2022-01-19 2022-01-19 Ambulatory nullFlavo MNA [id number] Memoria 18:00:00 18:00:00 Pre-Reg r Neurology 20 l Sudarshan Neri 2022-01-19 2022-01-19 Outpatient HERMELINDO Thornton APPLESCHER [id number] 13:00:00 13:00:00 Jose 20 [place] 2021-12-28 2021-12-28 Outpatient MHIE MHIE [id number] Memoria 15:15:00 15:15:00 20 tunde Neri 2021-09-01 2021-09-02 Outpatient nullFlavo MNA [id number] Memoria 20:45:00 05:59:59 r Neurology 19 l Sudarshan Beverlyann 2021-09-01 2021-09-01 Outpatient HERMELINDO Thornton APPLESCHER [id number] 14:45:00 23:59:59 Jose 19 [place] 2021-09-01 2021-09-01 Ambulatory nullFlavo MNA [id number] Memoria 20:45:00 20:45:00 Pre-Reg r Neurology 18 l Sudarshan Beverlyann 2021-09-01 2021-09-01 Outpatient MHIE MHIE [id number] Memoria 14:45:00 14:45:00 18 tunde Neri 2021-09-01 2021-09-01 Outpatient MHIE MHIE [id number] Memoria 14:45:00 14:45:00 19 tunde [place] 2021-09-01 2021-09-01 Outpatient HERMELINDO Thornton APPLESCHER [id number] 14:45:00 14:45:00 Jose 18 [place] 2021-07-21 2021-07-22 Outpatient nullFlavo MNA [id number] Memoria 20:00:00 04:59:59 r Neurology 17 l [place] 2021-07-21 2021-07-21 Outpatient HERMELINDO Thornton MISCHER [id number] 15:00:00 23:59:59 Jose 17 [place] 2021-07-21 2021-07-21 Outpatient MHIE MHIE [id number] Memoria 15:00:00 15:00:00 17 tunde Neri 2021-06-07 2021-06-08 Outpatient nullFlavo MNA [id number] Memoria 19:45:00 04:59:59 r Neurology 16 l Sudarshan Neri 2021-06-07 2021-06-07 Outpatient DEBI ThorntonSCHER MISCHER [id number] 14:45:00 23:59:59 Jose 16 [place] 2021-06-07 2021-06-07 Outpatient MHIE MHIE [id number] Memoria 14:45:00 14:45:00 16 tunde Neri 2021-06-01 2021-06-01 Ambulatory nullFlavo MNA [id number] Memoria 20:00:00 20:00:00 Pre-Reg r Neurology 15 l Sudarshan Beverlyann 2021-06-01 2021-06-01 Outpatient MHIE MHIE [id number] Memoria 15:00:00 15:00:00 15 tunde Neri 2021-06-01 2021-06-01 Outpatient HERMELINDO ThorntonSCHER [id number] 15:00:00 15:00:00 Jose 15 [place] 2021-04-15 2021-04-16 Outpatient nullFlavo MNA [id number] Memoria 16:15:00 04:59:59 r Neurology 14 l Sudarshan [place] 2021-04-15 2021-04-15 Outpatient DEBI ThorntonSCHZACH MOOREMISCHER [id number] 11:15:00 23:59:59 Jose 14 [place] 2021-04-15 2021-04-15 Outpatient MHIE MHIE [id number] Memoria 11:15:00 11:15:00 14 tunde Neri 2021-02-02 2021-02-04 Outside nullFlavo MNA [id number] Memoria 20:34:19 04:59:59 Medical r Neurology 02 l Records [place] 2021-02-02 2021-02-03 Outpatient MHMISCHER MHMISCHER [id number] 15:34:19 23:59:59 02 2021-01-20 2021-01-20 Outpatient COSODALIS, [facility] [id number] [place] 00:00:00 00:00:00 TYRELL [address] 2021-01-20 2021-01-20 Outpatient COSODALIS, [facility] [id number] [place] 00:00:00 00:00:00 TYRELL [address] 2021-01-13 2021-01-14 Outpatient nullFlavo MNA [id number] [place] 18:15:00 04:59:59 r Neurology 13 l Sudarshan [place] 2021-01-13 2021-01-13 Outpatient DEBI ThorntonSCHZACH MHMISCHER [id number] 13:15:00 23:59:59 Jose 13 [place] 2021-01-13 2021-01-13 Outpatient MHIE MHIE [id number] [place] 13:15:00 13:15:00 13 l [place] 2020-09-03 2020-09-03 Ambulatory nullFlavo MNA [id number] Memoria 20:15:00 20:15:00 Pre-Reg r Neurology 12 l Sudarshan Neri 2020-09-03 2020-09-03 Outpatient DEBI ThorntonSCHZACH MOOREMISCHER [id number] 14:15:00 14:15:00 Jose 12 [place] 2020-09-01 2020-09-01 Outpatient MHIE MHIE [id number] [place] 11:30:00 11:30:00 12 l [place] 2020-05-29 2020-05-29 Outpatient CASEY, [facility] [id number] [place] 00:00:00 00:00:00 TYRELL [address] 2020-05-11 2020-05-11 Outpatient COSODALIS, [facility] [id number] [place] 00:00:00 00:00:00 TYRELL [address] 2020-04-30 2020-05-01 Outpatient nullFlavo MNA [id number] Memoria 13:15:00 04:59:59 r Neurology 11 l Sudarshan Neri 2020-04-30 2020-04-30 Outpatient DEBI ThorntonSCHZACH MHMISCHER [id number] 08:15:00 23:59:59 Jose 11 [place] 2020-04-30 2020-04-30 Ambulatory nullFlavo MNA [id number] Memoria 13:15:00 13:15:00 Pre-Reg r Neurology 10 l Sudarshan [place] 2020-04-30 2020-04-30 Outpatient MHIE MHIE [id number] [place] 08:15:00 08:15:00 11 l [place] 2020-04-30 2020-04-30 Outpatient MHIE MHIE [id number] [place] 08:15:00 08:15:00 10 l [place] 2020-04-30 2020-04-30 Outpatient Norberto MISCHER MHMISCHER [id number] 08:15:00 08:15:00 Jose 10 [place] 2020-04-02 2020-04-02 Ambulatory nullFlavo MNA [id number] Memoria 19:45:00 19:45:00 Pre-Reg r Neurology 09 l [place] 2020-04-02 2020-04-02 Outpatient MHIE MHIE [id number] [place] 14:45:00 14:45:00 09 l [place] 2020-04-02 2020-04-02 Outpatient Norberto MISCHER MHMISCHER [id number] 14:45:00 14:45:00 Jose 09 [place] 2020-03-10 2020-03-11 Outpatient nullFlavo MNA [id number] Mem[place] 19:00:00 04:59:59 r Neurology 08 l Sudarshan Neri 2020-03-10 2020-03-10 [id number] 14:00:00 23:59:59 Jose 08 [place] 2020-03-10 2020-03-10 Outpatient MHIE MHIE [id number] [place] 14:00:00 14:00:00 08 l [place] 2019-12-02 2019-12-02 Outpatient CASEY, [facility] [id number] [place] 00:00:00 00:00:00 TYRELL rich 2019-09-25 2019-09-26 Outpatient nullFlavo MNA [id number] Memoria 17:45:00 05:59:59 r Neurology 07 l Sudarshan Neri 2019-09-25 2019-09-25 Outpatient Norberto MISCHER MHMISCHER [id number] 11:45:00 23:59:59 Jsoe 07 [place] 2019-09-25 2019-09-25 Outpatient MHIE MHIE [id number] [place] 11:45:00 11:45:00 07 tunde Neri 2019-05-24 2019-05-25 Outpatient nullFlavo MNA [id number] Memoria 14:00:00 04:59:59 r Neurology 06 tunde [place] 2019-05-24 2019-05-24 Outpatient DEBI ThorntonSCHER MISCHER [id number] 09:00:00 23:59:59 Jose 06 [place] 2019-05-24 2019-05-24 Outpatient MHIE MHIE [id number] [place] 09:00:00 09:00:00 06 tunde [place] 2019-04-12 2019-04-13 Outpatient nullFlavo MNA [id number] Memoria 19:15:00 04:59:59 r Neurology 05 tunde [place] 2019-04-12 2019-04-12 Outpatient DEBI ThorntonSCHER MISCHER [id number] 14:15:00 23:59:59 Jose 05 [place] 2019-04-12 2019-04-12 Outpatient MHIE MHIE [id number] [place] 14:15:00 14:15:00 05 tunde [place] 2019-01-31 2019-02-02 Phone nullFlavo MNA [id number] Memoria 15:04:00 04:59:59 Message r Neurology 01 tunde [place] 2019-01-31 2019-02-01 Outpatient MHMISCHER MHMISCHER [id number] 10:04:00 23:59:59 2019-01-04 2019-01-04 Outpatient MHIE MHIE [id number] [place] 13:45:00 13:45:00 04 tunde [place] 2018-10-04 2018-10-05 Outpatient nullFlavo MNA [id number] Memoria 19:15:00 05:59:59 r Neurology 03 tunde [place] 2018-10-04 2018-10-04 Outpatient DEBI ThorntonSCHZACH MISCHER [id number] 13:15:00 23:59:59 Jose 03 [place] 2018-10-04 2018-10-04 Outpatient MHIE MHIE [id number] [place] 13:15:00 13:15:00 03 tunde Neri 2018-07-30 2018-08-01 Phone nullFlavo MNA [id number] Memoria 21:44:00 04:59:59 Message r Neurology 00 l Sudarshan [place] 2018-07-30 2018-07-31 Outpatient MHMISCHER MHMISCHER [id number] 16:44:00 23:59:59 00 2018-07-05 2018-07-05 Outpatient MHIE IE [id number] [place] 13:00:00 13:00:00 02 tunde Neri 2018-07-04 2018-07-04 Outpatient MHIE MHIE [id number] [place] 09:45:00 09:45:00 01 tunde Neri 2018-02-28 2018-02-28 Outpatient MHIE MHIE [id number] [place] 10:15:00 10:15:00 00 tunde Neri Results This patient has no known results.
[2022-10-19 20:18] LABS: Urine Blood 2+ (Negative); Urine Glucose Negative (Negative); Urine Protein 1+ (Negative); Urine Specific Gravity 1.015 (1.005-1.030); Urine pH 6.5 (5.0-7.0)
[2022-10-19 20:21] LABS: Absolute Lymphocytes (CBC) 1.3 K/uL (0.7-4.9); Hematocrit 40.3 % (36.0-45.0); Lymphocytes % 7.5 % (15.3-44.8); MCV 78.7 fL (80-100); MPV 8.8 fL (7.6-11.3); RBC Red Blood Cell Count 5.12 M/uL (3.86-4.86)
[2022-10-19 20:30] LABS: Urine Bacteria <20 /HPF (<20); Urine Crystals Unidentified Few /HPF (None Seen); Urine Mucus Slight /HPF (None Seen); Urine WBC Clump Rare /HPF (None Seen)
[2022-10-19 20:36] LABS: Albumin 3.8 g/dL (3.4-5.0); Bilirubin Total 0.8 mg/dL (0.2-1.0); Potassium 3.7 mmol/L (3.5-5.1); Protein, Total 7.9 g/dL (6.4-8.2)
[2022-10-19] MEDS ORDERED: MORPHINE 4 MG/ML SYR ONE ×2 (21:08→22:01)
[2022-10-19] MEDS ORDERED: NA CHLORIDE 0.9% 1,000 ML ONE (21:08)
[2022-10-19] MEDS ORDERED: ONDANSETRON 4 MG/2 ML VIAL ONE (21:08)
--- NOTE | 2022-10-19 21:08 | RAD REPORT ---
EXAM DESCRIPTION: CT - Abdomen Pelvis W Contrast - 10/19/2022 8:54 pm CLINICAL HISTORY: Abdominal pain COMPARISON: none. TECHNIQUE: Computed axial tomography of the abdomen pelvis was obtained. 100 cc Isovue-300 was admin istered intravenously. Oral contrast was not requested which limits evaluation of bowel and appendix All CT scans are performed using dose optimization technique as appropriate and may include automated exposure control or mA/KV adjustment according to patient size. FINDINGS: Calcified hilar lymph nodes and calcified lung granulomas Splenic granulomas. Liver, pancreas and adrenals are unremarkable. Mild bilateral renal cortical thinning perhaps secondary to prior inflammation. Enhancement of the re nal pelves and ureteral benton may indicate infection. Appendix appears normal. No evidence of diverticulitis. Hysterectomy. Cholecystectomy. Postsurgical changes lumbar spine. Ventral hernia repair IMPRESSION: Enhancement of the benton of the renal pelves and ureters may indicate ascending urinary tract infection
--- NOTE | 2022-10-19 21:23 | EDPHYS ---
Physician Documentation [facility] Name: Mary Zarco Age: 57 yrs Sex: Female : 1965 Arrival Date: 10/19/2022 Time: 18:44 Bed 20 Private MD: ED Physician Denisa Garcia HPI: 10/20 00:20 This 57 yrs old Female presents to ER via Wheelchair with complaints of Abdominal Pain, kb Flank Pain, Back Pain. 00:39 The patient presents with flank pain, on the left, urinary symptoms, dysuria, kb frequency. Onset: The symptoms/episode began/occurred 3 day(s) ago. Modifying factors: The symptoms are alleviated by nothing, the symptoms are aggravated by urinating. Associated signs and symptoms: Pertinent positives: dysuria, urinary frequency. Severity of symptoms: At their worst the symptoms were moderate, in the emergency department the symptoms are unchanged. The patient has not experienced similar symptoms in the past. The patient has been recently seen at an urgent care, just prior to arrival, for similar complaints, and was sent to the [facility] Emergency Department for further evaluation. Pt reports she developed dysuria, frequency and small amounts 3 days ago. Reports she developed flank pain today. Went to Urgent care and was sent here to rule out kidney stone or kidney infection. Historical: - Allergies: 10/19 18:54 Dilaudid; ap3 18:54 Sulfa (Sulfonamide Antibiotics); ap3 - PMHx: 18:54 Anxiety; Chronic pain; Depression; Diabetes - NIDDM; High Cholesterol; Hypertension; ap3 tremors; 18:57 stimulator in back; ap3 - Immunization history:: Client reports having NOT received the Covid vaccine. Flu vaccine is not up to date. - Social history:: Smoking status: Patient denies any tobacco usage or history of. ROS: 10/20 00:37 Constitutional: Negative for fever, chills, and weight loss. kb : Positive for urinary symptoms, flank pain, urinary frequency, small amounts, burning with urination. All other systems are negative. Exam: 00:37 Constitutional: This is a well developed, well nourished patient who is awake, alert, kb and in no acute distress. Head/Face: Normocephalic, atraumatic. ENT: Moist Mucous membranes Cardiovascular: Regular rate and rhythm with a normal S1 and S2. No gallops, murmurs, or rubs. No pulse deficits. Respiratory: Respirations even and unlabored. No increased work of breathing. Talking in full sentences Abdomen/GI: Soft, non-tender. No distention Skin: Warm, dry with normal turgor. Normal color. MS/ Extremity: Pulses equal, no cyanosis. Neurovascular intact. Full, normal range of motion. Neuro: Awake and alert, GCS 15, oriented to person, place, time, and situation. Moves all extremities. Normal gait. Psych: Awake, alert, with orientation to person, place and time. Behavior, mood, and affect are within normal limits. 00:37 Back: CVA tenderness, that is moderate, is noted on the left. Vital Signs: 10/19 18:52 BP 115 / 70; Pulse 88; Resp 19; Temp 98.4; Pulse Ox 97% ; Weight 97.98 kg; Height 5 ft. ap3 7 in. (170.18 cm); Pain 10/10; 19:45 BP 147 / 114; Pulse 84; Resp 20; Temp 100.5; Pulse Ox 99% ; Weight 97.98 kg; Height 5 rv1 ft. 7 in. (170.18 cm); Pain 10/10; 21:30 BP 152 / 73; Pulse 105; Resp 18; Temp 101.5(O); Pulse Ox 99% on R/A; jb4 23:00 BP 153 / 79; Pulse 103; Resp 18; Pulse Ox 94% on R/A; jb4 19:45 Body Mass Index 33.83 (97.98 kg, 170.18 cm) rv1 MDM: 19:31 Patient medically screened. kb 10/20 00:23 Data reviewed: vital signs, nurses notes. Data interpreted: Pulse oximetry: on room air kb is 96 %. Interpretation: normal. Counseling: I had a detailed discussion with the patient and/or guardian regarding: the historical points, exam findings, and any diagnostic results supporting the discharge/admit diagnosis, lab results, radiology results, the need for further work-up and treatment in the hospital. Physician consultation: Gio GLOVER regarding admission, to the medical/surgical unit. patient's condition, and will see patient in ED, accepts admission under Dr Alba. ED course: After discussing diagnostics, pt wanted to go home. I put in for rocephin and discharge, but pt's updated vitals showed fever and tachycardia. I spoke to pt again and told her it would be beneficial for her to be admitted for IV antibiotics. Pt agrees to admission.. 10/19 19:44 Order name: CBC with Diff; Complete Time: 20:27 kb 10/19 19:44 Order name: CMP; Complete Time: 21:10 kb 10/19 19:44 Order name: Lipase; Complete Time: 21:10 kb 10/19 19:44 Order name: Urine Microscopic Only; Complete Time: 20:31 kb 10/19 20:18 Order name: Urine Dipstick-Ancillary; Complete Time: 20:27 EDMS 10/19 20:33 Order name: Urine Culture EDMS 10/19 21:49 Order name: Lactate w/ 2H reflex if indic.; Complete Time: 23:04 kb 10/19 21:49 Order name: Blood Culture Adult (2) kb 10/19 22:09 Order name: SARS RAPID; Complete Time: 22:52 jb4 10/20 02:59 Order name: CBC with Automated Diff EDMS 10/20 03:17 Order name: Comprehensive Metabolic Panel EDMS 10/20 03:41 Order name: Hemoglobin A1c EDMS 10/20 08:12 Order name: Glucose, Ancillary Testing EDMS 10/20 11:58 Order name: Glucose, Ancillary Testing EDMS 10/19 19:44 Order name: CT Abd/Pelvis - IV Contrast Only; Complete Time: 21:10 kb 10/19 19:44 Order name: IV Saline Lock; Complete Time: 20:21 kb 10/19 19:44 Order name: Labs collected and sent; Complete Time: 20:21 kb 10/19 19:44 Order name: Urine Dipstick-Ancillary (obtain specimen); Complete Time: 20:21 kb 10/19 21:23 Order name: Vital Signs; Complete Time: 21:30 kb Administered Medications: 10/19 21:13 Drug: NS 0.9% 1000 ml Route: IV; Rate: 1 bolus; Site: right antecubital; jb4 21:13 Drug: Zofran (Ondansetron) 4 mg Route: IVP; Site: right antecubital; jb4 21:13 Drug: morphine 4 mg Route: IVP; Infused Over: 4 mins; Site: right antecubital; jb4 21:50 Drug: Rocephin (cefTRIAXone) 1 grams Route: IV; Rate: calculated rate; Site: right jb4 antecubital; 21:50 Not Given (Patient Refused): Ibuprofen 600 mg PO once jb4 21:53 Drug: Tylenol 1000 mg Route: PO; jb4 22:03 Drug: morphine 4 mg Route: IVP; Infused Over: 4 mins; Site: right antecubital; jb4 Disposition Summary: 10/19/22 22:07 Hospitalization Ordered Hospitalization Status: Inpatient Admission kb Provider: Tj Alba Condition: Stable(10/19/22 22:07) kb Problem: new kb Symptoms: are unchanged kb Bed/Room Type: Standard kb Location: Telemetry/MedSurg (observation)(10/20/22 12:44) bd Room Assignment: 405(10/20/22 13:47) bd Diagnosis - Elevated white blood cell count kb - Pyelonephritis acute kb Forms: - Medication Reconciliation Form kb - SBAR form kb Signatures: Dispatcher [employer] EDMS Abbie Reyes, INDUSTRIAL SERVICE TECHNICIAN-C INDUSTRIAL SERVICE TECHNICIAN-CkDyan Quiñonez James RN RN jb4 Felicitas Mclaughlin RN RN анна3 Yuliana Parrish RN RN eb1 Corrections: (The following items were deleted from the chart) 21:48 21:22 Home kb kb 21:48 21:22 Stable kb kb 21:48 21:22 UTI/ Urinary tract infection, site not specified kb kb 22:07 22:07 UTI/ Urinary tract infection, site not specified kb kb 22:19 22:07 Telemetry/MedSurg (Inpatient) kb eb1 22:19 22:07 kb eb1 10/20 12:44 10/19 22:19 [facility] ER HOLD eb1 bd 10/20 12:44 10/19 22:19 ERHOLD- eb1 bd 10/20 13:47 12:44 [facility] bd
--- NOTE | 2022-10-19 21:23 | ER ---
Nurse's Notes [facility] Name: Mary Zarco Age: 57 yrs Sex: Female : 1965 Arrival Date: 10/19/2022 Time: 18:44 Bed 20 Private MD: Diagnosis: Elevated white blood cell count;Pyelonephritis acute Presentation: 10/19 18:52 Chief complaint: Patient states: she was sent from the urgent care where she was ap3 diagnosed with a UTI and possible kidney infection with a kidney stone. patient is complaining of pain to her left flank. patient was given PO zofran at urgent care. Coronavirus screen: At this time, the client does not indicate any symptoms associated with coronavirus-19. Ebola Screen: No symptoms or risks identified at this time. Initial Sepsis Screen: Does the patient meet any 2 criteria? No. Patient's initial sepsis screen is negative. Does the patient have a suspected source of infection? No. Patient's initial sepsis screen is negative. Risk Assessment: Do you want to hurt yourself or someone else? Patient reports no desire to harm self or others. Onset of symptoms was October 19, 2022. 18:52 Method Of Arrival: Wheelchair ap3 18:52 Acuity: PANCHITO 3 ap3 18:55 Chief complaint:. ap3 Triage Assessment: 18:54 General: Appears uncomfortable, Behavior is calm, cooperative. Pain: Complains of pain ap3 in right low back Pain radiates to left lower quadrant Pain began 4 hours ago. 18:55 Neuro: Level of Consciousness is awake, alert, obeys commands, Oriented to person, ap3 place, time, situation, Moves all extremities. Cardiovascular: Patient's skin is warm and dry. Respiratory: Airway is patent Respiratory effort is even, unlabored. GI: Reports nausea. : Reports pain in left flank(s). Historical: - Allergies: 18:54 Dilaudid; ap3 18:54 Sulfa (Sulfonamide Antibiotics); ap3 - PMHx: 18:54 Anxiety; Chronic pain; Depression; Diabetes - NIDDM; High Cholesterol; Hypertension; ap3 tremors; 18:57 stimulator in back; ap3 - Immunization history:: Client reports having NOT received the Covid vaccine. Flu vaccine is not up to date. - Social history:: Smoking status: Patient denies any tobacco usage or history of. Screenin:56 Abuse screen: Denies threats or abuse. Nutritional screening: No deficits noted. ap3 Tuberculosis screening: No symptoms or risk factors identified. Assessment: 19:30 General: Appears in no apparent distress. uncomfortable, Behavior is calm, cooperative, jb4 appropriate for age. Pain: Complains of pain in low back area Pain radiates to right lower quadrant and left lower quadrant Pain currently is 10 out of 10 on a pain scale. Neuro: Level of Consciousness is awake, alert, obeys commands, Oriented to person, place, time, situation. Cardiovascular: Patient's skin is warm and dry. Respiratory: Airway is patent Respiratory effort is even, unlabored, Respiratory pattern is regular, symmetrical. GI: Abdomen is round non-distended. : Reports pain in bilateral flank(s), in lower back with urination. EENT: No signs and/or symptoms were reported regarding the EENT system. Derm: Skin is intact, Skin is pink, warm \T\ dry. Musculoskeletal: Circulation, motion, and sensation intact. Range of motion: intact in all extremities. 20:30 Reassessment: Patient appears in no apparent distress at this time. Patient and/or jb4 family updated on plan of care and expected duration. Pain level reassessed. Patient is alert, oriented x 3, equal unlabored respirations, skin warm/dry/pink. 22:05 Reassessment: Patient appears in no apparent distress at this time. Patient and/or jb4 family updated on plan of care and expected duration. Pain level reassessed. Patient is alert, oriented x 3, equal unlabored respirations, skin warm/dry/pink. Vital Signs: 18:52 BP 115 / 70; Pulse 88; Resp 19; Temp 98.4; Pulse Ox 97% ; Weight 97.98 kg; Height 5 ft. ap3 7 in. (170.18 cm); Pain 10/10; 19:45 BP 147 / 114; Pulse 84; Resp 20; Temp 100.5; Pulse Ox 99% ; Weight 97.98 kg; Height 5 rv1 ft. 7 in. (170.18 cm); Pain 10/10; 21:30 BP 152 / 73; Pulse 105; Resp 18; Temp 101.5(O); Pulse Ox 99% on R/A; jb4 23:00 BP 153 / 79; Pulse 103; Resp 18; Pulse Ox 94% on R/A; jb4 19:45 Body Mass Index 33.83 (97.98 kg, 170.18 cm) rv1 ED Course: 18:44 Patient arrived in ED. ja2 18:54 Triage completed. ap3 18:56 Arm band placed on left wrist. ap3 19:23 Abbie Reyes FNP-C is PHCP. kb 19:23 Denisa Garcia MD is Attending Physician. kb 20:10 Initial lab(s) drawn, by mn, sent to lab. Inserted saline lock: 20 gauge in right jb4 antecubital area, using aseptic technique. Blood collected. 20:15 Urine collected: clean catch specimen, cloudy. jb4 20:21 CBC with Diff Sent. jb4 20:21 CMP Sent. jb4 20:21 Lipase Sent. jb4 20:21 Urine Microscopic Only Sent. jb4 20:55 CT Abd/Pelvis - IV Contrast Only In Process Unspecified. EDMS 21:35 Urine Culture Sent. jb4 21:49 Tank Hong, RN is Primary Nurse. jb4 22:06 Tj Alba MD is Hospitalizing Provider. kb Administered Medications: 21:13 Drug: NS 0.9% 1000 ml Route: IV; Rate: 1 bolus; Site: right antecubital; jb4 21:13 Drug: Zofran (Ondansetron) 4 mg Route: IVP; Site: right antecubital; jb4 21:13 Drug: morphine 4 mg Route: IVP; Infused Over: 4 mins; Site: right antecubital; jb4 21:50 Drug: Rocephin (cefTRIAXone) 1 grams Route: IV; Rate: calculated rate; Site: right jb4 antecubital; 21:50 Not Given (Patient Refused): Ibuprofen 600 mg PO once jb4 21:53 Drug: Tylenol 1000 mg Route: PO; jb4 22:03 Drug: morphine 4 mg Route: IVP; Infused Over: 4 mins; Site: right antecubital; jb4 Outcome: 21:22 Discharge ordered by . kb 22:07 Decision to Hospitalize by Provider. kb 10/20 14:31 Patient left the ED. db Signatures: Dispatcher [employer] EDMS Abbie Reyes FNP-C BINDING CUTTER-Ckb Tank Hong RN RN jb4 Felicitas Mclaughlin RN RN ap3 Colleen Zimmerman Danielle, RN RN db Maria Luisa Welch1 Corrections: (The following items were deleted from the chart) 10/19 18:56 18:52 Chief complaint: Patient states: she was sent from the urgent care where she was ap3 diagnosed with a UTI and possible kidney infection with a kidney stone. patient is complaining of pain to her left flank ap3
[2022-10-19] MEDS ORDERED: IBUPROFEN 200 MG TAB PO ONE (21:39)
[2022-10-19] MEDS ORDERED: CEFTRIAXONE 1000 MG/VIAL ONE (21:39)
[2022-10-19] MEDS ORDERED: ACETAMINOPHEN 500 MG TAB ONE (21:51)
--- NOTE | 2022-10-19 22:40 | P.HP ---
Certification for Inpatient Patient admitted to: Inpatient With expected LOS: >2 Midnights Patient will require the following post-hospital care: None Practitioner: I am a practitioner with admitting privileges, knowledge of patient current condition, hospital course, and medical plan of care. Services: Services provided to patient in accordance with Admission requirements found in Title 42 Section 412.3 of the Code of Federal Regulations Patient History Date of Service: 10/20/22 Reason for admission: Pyelonephritis History of Present Illness: 57-year-old female with history of hypertension, hyperlipidemia, [id number] diabetes presents emergency department for dysuria, back pain. She reports urinary symptoms the past 3 days. Her labs here were significant for leukocytosis with blood cell count 17.6 creatinine 1.31 GFR 48 glucose 129 urinalysis with 3+ leuk esterase. CT abdomen pelvis with IV contrast was performed which revealed enhancement of the benton of the renal pelvis and ureters may indicate a sending urinary tract infection. No side obstruction or hydronephrosis was noted. Patient met criteria for sepsis given tachycardia, fever, leukocytosis with source of infectionUTI. Lactic acid pending, blood cultures obtained. Will admit for further evaluation and management of sepsis, pyelonephritis. Allergies Sulfa (Sulfonamide Antibiotics) [Sulfa(Sulfonamide Antibiotics)] Allergy (Mild, Verified 11/23/11 15:30) Rash SULFA (SULFONAMIDES) Allergy (Uncoded 07/29/15 01:11) Unknown Home Medications: ALPRAZolam [Xanax*] 1 mg PO DAILY 12/31/15 Amlodipine [Norvasc*] 5 mg PO DAILY 12/31/15 Atorvastatin Calcium [Lipitor*] 10 mg PO BEDTIME 12/31/15 Cholecalciferol (Vitamin D3) [Vitamin D 2,000 Unit Tab] 4,000 unit PO DAILY 12/31/15 Cyanocobalamin [Vitamin B-12*] 1 tab PO DAILY 12/31/15 Hydrocodone Bit/Acetaminophen [Hydrocodon-Acetaminophn 10-325] 1 each PO Q6HP PRN 12/31/15 Hydrocodone Bit/Acetaminophen [Hydrocodon-Acetaminophn 10-325] 2 tab PO Q6HP PRN 12/31/15 L.acidoph,Paracasei, B.lactis [Probiotic] 1 each PO DAILY 12/31/15 Vilazodone HCl [Viibryd] 40 mg PO DAILY 12/31/15 nadoloL [Nadolol] 1 tab PO DAILY 12/31/15 Losartan Potassium 100 mg PO DAILY 01/01/16 Meclizine HCl [Antivert*] 25 mg PO Q6HP PRN #15 tab 01/02/16 Meclizine HCl [Antivert*] 25 mg PO Q6HR PRN #90 tab 01/03/16 clonazePAM [Klonopin*] 0.5 mg PO BID PRN #60 tab 01/03/16 - Past Medical/Surgical History Diabetic: No -: MRSA intestines -: htn -: anxieth -: depression -: tremors -: hyperlipidemia -: DMII -: back surgery s1-L2 -: panda -: hysterectomy -: umbilical herinia removed -: tonsills removed Psychosocial/ Personal History: Pt is disabled, lives at home with . - Family History Mother -: Heart disease, Diabetes Sister -: Heart disease, Hypertension, Cancer, Seizures - Social History Smoking Status: Never smoker Alcohol use: Yes CD- Drugs: No Caffeine use: Yes Place of Residence: Home Review of Systems 10-point ROS is otherwise unremarkable General: Fever, Chills, Weakness, Malaise Genitourinary: Dysuria, Frequency Physical Examination - Physical Exam General: Alert, In no apparent distress, Oriented x3 HEENT: Atraumatic, PERRLA, Mucous membr. moist/pink, EOMI, Sclerae nonicteric Neck: Supple, 2+ carotid pulse no bruit, No LAD, Without JVD or thyroid abnormal ity Respiratory: Clear to auscultation bilaterally, Normal air movement Cardiovascular: Regular rate/rhythm, Normal S1 S2 Capillary refill: <2 Seconds Gastrointestinal: Normal bowel sounds, Other (suprapubic tenderness, ADONAY CVA tenderness worse on left. ) Musculoskeletal: No tenderness Integumentary: No rashes Neurological: Normal speech, Normal strength at 5/5 x4 extr, Normal tone, Normal affect - Studies Laboratory Data (last 24 hrs) 10/19/22 20:10: Sodium 139, Potassium 3.7, BUN 15, Creatinine 1.31 H, Glucose 129 H, Total Bilirubin 0.8, AST 28, ALT 39, Alkaline Phosphatase 208 H, Lipase 185 10/19/22 20:10: WBC 17.60 H, Hgb 13.4, Hct 40.3, Plt Count 237 Assessment and Plan - Plan Assessment: Sepsis secondary to pyelonephritis Diabetes mellitus type [id number] Hypertension Hyperlipidemia Plan: Sepsis secondary to pyelonephritis: Continue IV fluids, antibiotics. Previous urine cultures reviewed continue Rocephin. Clear liquid diet tonight as patient was experiencing nausea, advance as tolerated. As needed pain medications and antiemetics. Diabetes mellitus type [id number]: ACHS Accu-Chek, sliding scale insulin, A1c in the morning. Hypertension: Continue home medications when appropriate. Hyperlipidemia: Continue home medications when appropriate. DVT PPX: Lovenox Code status: Full Discharge Plan: Home Plan to discharge in: 72 Hours - Advance Directives Does patient have a Living Will: Yes Does patient have a Durable POA for Healthcare: Yes - Code Status/Comfort Care Code Status Assessed: Yes (Full code) Critical Care: No Time Spent Managing Pts Care (In Minutes): 55
[2022-10-19 22:51] LABS: SARS-CoV-2 Antigen Rapid Res Negative (Negative)
[2022-10-20] MEDS ORDERED: ONDANSETRON 4 MG/2 ML VIAL IV PRN (00:02)
[2022-10-20] MEDS ORDERED: GLUCAGON 1 MG/VIAL IM PRN (00:02)
[2022-10-20] MEDS ORDERED: D50W 25 GM/50 ML SYRINGE IV PRN (00:02)
[2022-10-20] MEDS ORDERED: D10W 125 ML IV PRN (00:09)
[2022-10-20] MEDS ORDERED: Ringers Lactate 1,000 ML IV ONE ×2 (02:07→10:26)
[2022-10-20] MEDS ORDERED: MORPHINE 2 MG/ML SYR ONE (02:07)
[2022-10-20] MEDS ORDERED: ONDANSETRON 4 MG/2 ML VIAL ONE (02:07)
[2022-10-20] MEDS: MORPHINE 2 MG/ML SYR IV PRN ×3 (02:19→19:14)
[2022-10-20] MEDS: Ringers Lactate 1,000 ML IV SCH ×5 (02:19→19:14)
[2022-10-20 02:57] LABS: Absolute Lymphocytes (CBC) 1.8 K/uL (0.7-4.9); Hematocrit 34.4 % (36.0-45.0); Lymphocytes % 12.6 % (15.3-44.8); MCV 77.8 fL (80-100); MPV 9.2 fL (7.6-11.3); RBC Red Blood Cell Count 4.42 M/uL (3.86-4.86)
[2022-10-20 03:16] LABS: Albumin 3.1 g/dL (3.4-5.0); Bilirubin Total 0.8 mg/dL (0.2-1.0); Potassium 3.2 mmol/L (3.5-5.1); Protein, Total 6.6 g/dL (6.4-8.2)
[2022-10-20 03:35] VITALS: BMI 33.8
[2022-10-20] MEDS: INSULIN -REGULAR HUMAN 50 UNIT/0.5 ML ML SQ SCH ×4 (07:30→21:00)
[2022-10-20] MEDS ORDERED: INFLUENZA VACCINE (for 6+ mo) 0.5 ML DOSE IMVAC ONE (08:00)
[2022-10-20] MEDS ORDERED: POTASSIUM CL SA 10 MEQ TAB PO ONE ×3 (08:23→17:00)
[2022-10-20] MEDS ORDERED: CEFTRIAXONE 2000 MG/VIAL ONE (08:23)
[2022-10-20] MEDS ORDERED: NA CHLORIDE 0.9% 100 ML IV ONE (08:24)
[2022-10-20] MEDS ORDERED: ENOXAPARIN 40 MG/0.4 ML SQ ONE (08:24)
[2022-10-20] MEDS: CEFTRIAXONE 2,000 MG in NA CHLORIDE 0.9% 100 ML IV SCH (09:00)
[2022-10-20] MEDS: ENOXAPARIN 40 MG/0.4 ML SQ SCH (09:00)
[2022-10-20] MEDS ORDERED: ACETAMINOPHEN 500 MG TAB ONE (10:26)
[2022-10-20] MEDS: ACETAMINOPHEN 500 MG TAB PO PRN ×2 (10:36→19:27)
[2022-10-20 16:01] LABS: Potassium 3.6 mmol/L (3.5-5.1)
[2022-10-20] MEDS: PROPRANOLOL HCL 80 MG SA CAP PO SCH (21:00)
[2022-10-20] MEDS: CYCLOBENZAPRINE 10 MG TAB PO SCH (21:38)
[2022-10-20] MEDS: HYDROCODONE/APAP 10/325 TAB PO SCH (21:39)
[2022-10-20] MEDS: MONTELUKAST 10 MG TAB PO SCH (21:39)
[2022-10-20] MEDS: PREGABALIN 75 MG CAP PO SCH (21:39)
[2022-10-20] MEDS: ATORVASTATIN 40 MG TAB PO SCH (21:39)
--- NOTE | 2022-10-20 22:07 | P.PN ---
Date of Service: 10/20/22 Subjective: feels slightly better this morning no new/worsening symptoms ROS: A complete review of systems was performed and is negative except as mentioned above Physical Exam: Gen: NAD, AOx3 HEENT: normal conjunctiva, sclera anicteric CV: regular rate & rhythm, intermittent tachycardia, no edema Pulm: non-labored respirations, clear bilaterally Abd: soft, non-tender, non-distended Neuro: normal speech, normal affect, moves all extremities vitals reviewed Problem List Sepsis secondary to pyelonephritis Diabetes mellitus type [id number] Hypertension Hyperlipidemia continue IVF continue antibiotics f/u urine cultures advance diet as tolerated pain medication as needed accucheks, sliding scale confirm home meds, restart as appropriate VTE: lovenox Code: full Dispo: home, ~2-3 days Time Spent Managing Pts Care (In Minutes): 35
[2022-10-21] MEDS: Ringers Lactate 1,000 ML IV SCH ×4 (00:02→16:02)
[2022-10-21 04:24] LABS: Absolute Lymphocytes (CBC) 1.4 K/uL (0.7-4.9); Hematocrit 34.9 % (36.0-45.0); Lymphocytes % 17.7 % (15.3-44.8); MCV 78.8 fL (80-100); MPV 8.8 fL (7.6-11.3); RBC Red Blood Cell Count 4.42 M/uL (3.86-4.86)
[2022-10-21 04:43] LABS: Bilirubin Total 0.9 mg/dL (0.2-1.0); Protein, Total 6.7 g/dL (6.4-8.2)
[2022-10-21] MEDS: PANTOPRAZOLE 40MG TABLET PO SCH (06:24)
--- NOTE | 2022-10-21 07:27 | P.PN ---
Date of Service: 10/21/22 Subjective: improving, pain improving tolerating diet no diarrhea ROS: A complete review of systems was performed and is negative except as mentioned above Physical Exam: Gen: NAD, AOx3 HEENT: normal conjunctiva, sclera anicteric CV: regular rate & rhythm, no edema Pulm: non-labored respirations, clear bilaterally Abd: soft, mild left flank tenderness Neuro: normal speech, normal affect, moves all extremities vitals reviewed Problem List Sepsis secondary to pyelonephritis KETURAH, prerenal, secondary to dehydration Diabetes mellitus type [id number]-[id number]-dxiqxlyew Hypertension Hyperlipidemia dc IVF later tonight continue antibiotics f/u urine cultures - 3+ GNR pt reports consistent UTI after taking bath or after sexual intercourse discussed consideration to f/u with Uro/MANAGER RENTAL; discuss with PCP, may benefit fr om prophylactic antibiotic to take after intercourse pain medication as needed accucheks, sliding scale confirm home meds, restart as appropriate KETURAH,improved with IVF, holding nephrotoxic meds - losartan/HCTZ for now VTE: lovenox Code: full Dispo: home, ~1-2 days Time Spent Managing Pts Care (In Minutes): 35
[2022-10-21] MEDS: INSULIN -REGULAR HUMAN 50 UNIT/0.5 ML ML SQ SCH ×4 (07:30→21:00)
[2022-10-21] MEDS: CEFTRIAXONE 2,000 MG in NA CHLORIDE 0.9% 100 ML IV SCH (07:56)
[2022-10-21] MEDS: CYCLOBENZAPRINE 10 MG TAB PO SCH ×3 (07:57→21:04)
[2022-10-21] MEDS: HYDROCODONE/APAP 10/325 TAB PO SCH ×4 (07:57→21:04)
[2022-10-21] MEDS: ENOXAPARIN 40 MG/0.4 ML SQ SCH (07:57)
[2022-10-21] MEDS: PREGABALIN 75 MG CAP PO SCH ×3 (07:57→21:04)
[2022-10-21] MEDS: PROPRANOLOL HCL 80 MG SA CAP PO SCH ×2 (07:58→21:00)
[2022-10-21] MEDS ORDERED: PNEUMOCOCCAL VACCINE 0.5 ML IMVAC ONE (08:00)
[2022-10-21] MEDS: ATORVASTATIN 40 MG TAB PO SCH (21:04)
[2022-10-21] MEDS: MONTELUKAST 10 MG TAB PO SCH (21:04)
[2022-10-21] MEDS ORDERED: PROPRANOLOL HCL 40 MG TAB ONE (21:17)
[2022-10-22 04:30] LABS: Lymphocytes % 32.1 % (15.3-44.8); MCV 78.2 fL (80-100); MPV 8.8 fL (7.6-11.3); RBC Red Blood Cell Count 4.09 M/uL (3.86-4.86)
[2022-10-22 04:44] LABS: Albumin 2.7 g/dL (3.4-5.0); Bilirubin Total 0.4 mg/dL (0.2-1.0); Potassium 3.6 mmol/L (3.5-5.1); Protein, Total 6.1 g/dL (6.4-8.2)
[2022-10-22] MEDS: PANTOPRAZOLE 40MG TABLET PO SCH (06:22)
[2022-10-22] MEDS: INSULIN -REGULAR HUMAN 50 UNIT/0.5 ML ML SQ SCH (07:30)
[2022-10-22] MEDS: CEFTRIAXONE 2,000 MG in NA CHLORIDE 0.9% 100 ML IV SCH (07:59)
[2022-10-22] MEDS: CYCLOBENZAPRINE 10 MG TAB PO SCH (08:00)
[2022-10-22] MEDS: HYDROCODONE/APAP 10/325 TAB PO SCH (08:00)
[2022-10-22] MEDS: PREGABALIN 75 MG CAP PO SCH (08:00)
[2022-10-22] MEDS: PROPRANOLOL HCL 80 MG SA CAP PO SCH (08:01)
[2022-10-22] MEDS: ENOXAPARIN 40 MG/0.4 ML SQ SCH (08:01)
[2022-10-22 08:14] VITALS: O2SAT 96
[2022-10-22] MEDS ORDERED: POTASSIUM CL SA 10 MEQ TAB PO ONE (09:00)
[2022-10-22 09:12] VITALS: BP 144/60; TEMP 97.7
--- NOTE | 2022-10-22 21:30 | P.DS ---
Admission Date: 10/19/22 Discharge Date: 10/22/22 Disposition: ROUTINE DISCHARGE Discharge Condition: GOOD Reason for Admission: Pyelonephritis Brief History of Present Illness: 57-year-old female with history of hypertension, hyperlipidemia, rsn-xxakvav-dcaplvosb diabetes presents emergency department for dysuria, back pain. She reports urinary symptoms the past 3 days. Her labs here were significant for leukocytosis with blood cell count 17.6 creatinine 1.31 GFR 48 glucose 129 urinalysis with 3+ leuk esterase. CT abdomen pelvis with IV contrast was performed which revealed enhancement of the benton of the renal pelvis and ureters may indicate a sending urinary tract infection. No side obstruction or hydronephrosis was noted. Patient met criteria for sepsis given tachycardia, fever, leukocytosis with source of infectionUTI. Lactic acid pending, blood cultures obtained. Will admit for further evaluation and management of sepsis, pyelonephritis. Hospital Course: Problem List Sepsis secondary to pyelonephritis KETURAH, prerenal, secondary to dehydration Diabetes mellitus type 7xyw-[id number]-vxpvgoamf Hypertension Hyperlipidemia Patient presented with UTI symptoms and left flank pain. She was found to have a urinary tract infection with CT findings consistent with pyelonephritis. She improved with IV rocephin and IV fluids. Leukocytosis resolved, fever resolved and she remained afebrile. Urine culture grew pansensitive E. coli. Blood cultures were negative. Patient discharged with 7 more days of antibiotic Cefdinir, to complete a total of 10 day course. Follow up: PCP within 3-5 days. Recommend further discussion of high risk of UTIs after certain activities. May benefit from f/u with HANDBAG OPERATOR or Urology - to evaluate for potential causes / risk. Recommend avoidance of baths, and discussed lifestyle changes - liberal fluid intake, postcoital voiding, hygiene. If continues despite these changes, to consider topical estrogen vs postcoital prophylaxis. Vital Signs/Physical Exam: Temp Pulse Resp BP Pulse Ox 97.7 F 67 16 144/60 H 95 10/22/22 08:00 10/22/22 08:00 10/22/22 08:00 10/22/22 08:00 10/22/22 08:00 General: Alert, In no apparent distress, Oriented x3 HEENT: EOMI, Sclerae nonicteric Respiratory: Clear to auscultation bilaterally, Normal air movement Cardiovascular: No edema, Regular rate/rhythm Gastrointestinal: Soft and benign, Non-distended, No tenderness Musculoskeletal: No contractures, No tenderness Integumentary: No rashes, No significant lesion Neurological: Normal speech, Normal strength at 5/5 x4 extr, Normal affect Laboratory Data at Discharge: WBC 6.20 K/uL (4.3-10.9) 10/22/22 03:41 Hgb 10.9 g/dL (12.0-15.0) L 10/22/22 03:41 Hct 32.0 % (36.0-45.0) L 10/22/22 03:41 Plt Count 188 K/uL (152-406) 10/22/22 03:41 Sodium 143 mmol/L (136-145) 10/22/22 03:41 Potassium 3.6 mmol/L (3.5-5.1) 10/22/22 03:41 BUN 8 mg/dL (7-18) 10/22/22 03:41 Creatinine 0.92 mg/dL (0.55-1.02) 10/22/22 03:41 Glucose 124 mg/dL (74-106) H 10/22/22 03:41 Total Bilirubin 0.4 mg/dL (0.2-1.0) 10/22/22 03:41 AST 19 U/L (15-37) 10/22/22 03:41 ALT 28 U/L (13-56) 10/22/22 03:41 Alkaline Phosphatase 155 U/L (45-117) H 10/22/22 03:41 Lipase 185 U/L (73-393) 10/19/22 20:10 Home Medications: Atorvastatin Calcium [Lipitor] 40 mg PO BEDTIME 10/20/22 Cyclobenzaprine [Flexeril*] 1 tab PO TID 10/20/22 Hydrocodone Bit/Acetaminophen [Hydrocodon-Acetaminophn 10-325] 1 tab PO QID 10/20/22 Losartan/Hydrochlorothiazide [Losartan-Hctz 100-12.5 mg Tab] 1 each PO DAILY 10/20/22 Montelukast Sodium 10 mg PO BEDTIME 10/20/22 Omeprazole [Prilosec] 40 mg PO DAILY 10/20/22 Pregabalin [Lyrica*] 75 mg PO TID 10/20/22 Propranolol [Inderal LA*] 80 mg PO BID 10/20/22 Vortioxetine Hydrobromide [Trintellix] 20 mg PO DAILY 10/20/22 Cefdinir [Cefdinir*] 300 mg PO BID 7 Days #14 cap 10/22/22 New Medications: Cefdinir [Cefdinir*] 300 mg PO BID 7 Days #14 cap Physician Discharge Instructions: PROBLEM: Pyelonephritis and UTI GOAL: Clear understanding of disease process INSTRUCTIONS: Patient presented with UTI symptoms and left flank pain. She was found to have a urinary tract infection with CT findings consistent with pyelonephritis. She improved with IV rocephin and IV fluids. Leukocytosis resolved, fever resolved and she remained afebrile. Urine culture grew pansensitive E. coli. Blood cultures were negative. Patient discharged with 7 more days of antibiotic Cefdinir, to complete a total of 10 day course. Follow up: PCP within 3-5 days. Recommend further discussion of high risk of UTIs after certain activities. May benefit from f/u with HANDBAG OPERATOR or Urology - to evaluate for potential causes / risk. Recommend avoidance of baths, and discussed lifestyle changes - liberal fluid intake, postcoital voiding, hygiene. If continues despite these changes, to consider topical estrogen vs postcoital prophylaxis. Diet: As tolerated Activity: Bedrest IMMUNIZATION Influenza Vaccine Indicated: Yes Influenza Vaccine Given: Pneumonia Vaccine Indicated: Yes Pneumonia Vaccine Given: No Activity: Bedrest Time spent managing pt's care (in minutes): 45
== END 2022-10-22 09:40 | disposition home or self-care (01) | DRG 872 ==
LOC: ER 18:41 → ERHOLD 22:18 → 4TH 10-20 14:11
PROVIDERS: ADMIT Hospitalist; ATTEND Hospitalist
DX: A41.9 Sepsis, unspecified organism (principal); N10 Acute pyelonephritis; N17.9 Acute kidney failure, unspecified; B96.20 Unspecified Escherichia coli [E. coli] as the cause of diseases classified elsewhere; E86.0 Dehydration; E11.9 Type 2 diabetes mellitus without complications; I10 Essential (primary) hypertension; E78.5 Hyperlipidemia, unspecified; G89.29 Other chronic pain; R25.1 Tremor, unspecified; F32.A Depression, unspecified; F41.9 Anxiety disorder, unspecified; Z79.899 Other long term (current) drug therapy; Z88.2 Allergy status to sulfonamides; Z88.6 Allergy status to analgesic agent; Z28.310 Unvaccinated for COVID-19; Z20.822 Contact with and (suspected) exposure to COVID-19; Z90.49 Acquired absence of other specified parts of digestive tract; Z90.710 Acquired absence of both cervix and uterus; Z82.49 Family history of ischemic heart disease and other diseases of the circulatory system; Z83.3 Family history of diabetes mellitus; Z80.9 Family history of malignant neoplasm, unspecified; Z82.0 Family history of epilepsy and other diseases of the nervous system
CPT/HCPCS: 36415; 74177; 80048; 80053; 81003; 81015; 82947; 83036; 83605; 83690; 85025; 87040; 87077; 87086; 87088; 87186; 87811; 96374; 96375; 99284; J0696; J1650; J2270; J2405; J7030; J7120; Q9967

== ENCOUNTER 2023-02-22 07:54 | Day surgery (SDC) | payer OTHER ==
[2023-02-22 09:56] LABS: MPV 8.3 fL (7.6-11.3)
[2023-02-22 10:05] LABS: Protime INR 1.08
--- NOTE | 2023-02-22 12:14 | RAD REPORT ---
EXAM DESCRIPTION: RAD - Chest Pa And Lat (2 Views) - 02/22/2023 12:02 pm CLINICAL HISTORY: J18.9 COMPARISON: Chest Single View dated 10/16/2020; Chest Pa And Lat (2 Views) dated 02/14/2018; CHEST SINGL E VIEW dated 12/31/2015; CHEST PA AND LAT 2 VIEW dated 11/26/2015 FINDINGS: Lines: None. Lungs: No evidence of edema or pneumonia. Pleural: No significant pleural effusions or pneumothorax. Cardiac: The heart size is within normal limits. Mediastinum: Within normal limits. Bones: No acute fractures. Spinal stimulator around T10-11. Other: Surgical clips overlying both the right and left hemithorax. IMPRESSION: No acute cardiopulmonary disease.
[2023-02-22] MEDS ORDERED: HYDROCODONE/APAP 7.5/325 MG TAB ONE (14:22)
[2023-02-22 16:27] VITALS: BMI 33.2
[2023-02-22 16:30] VITALS: TEMP 97.9
[2023-02-22 16:36] VITALS: BP 116/67; O2SAT 100
--- NOTE | 2023-02-23 19:27 | RAD REPORT ---
EXAM DESCRIPTION: CT - Spine Lumbar Wo Con - 02/22/2023 11:54 am CLINICAL HISTORY: M54.50 COMPARISON: Spine Lumbar Wo Con dated 06/15/2016 TECHNIQUE: Axial noncontrast CT imaging of the lumbar spine was performed with coronal and sagittal re-formatted images. Intrathecal contrast was administered. This procedure was dictated in a separate report. All CT scans are performed using dose optimization technique as appropriate and may include automated exposure control or mA/KV adjustment according to patient size. FINDINGS: Status post L2 through S1 sergey and pedicle screw fusion. The hardware is intact. Interbody cages are present at L2-3 and L3-4. Posterior laminectomy performed at L3-4, L4-5, and L5-S1. A later al fusion is also present at L2-3 . A broad-based disc bulge is present at L1-2 which results in mild central spinal stenosis that is probably not clinically significant. No high-grade central spinal st enosis identified. Mild neural foraminal narrowing is present L5-S1. Partially imaged left-sided spin al stimulator. IMPRESSION: Status post L2 through S1 sergey and pedicle screw fusion. No hardware complications. Mild broad-based disc bulge at L1-2 results in mild central spinal stenosis. No other evidence of central spinal stenosis.
--- NOTE | 2023-02-24 07:37 | RAD REPORT ---
EXAM DESCRIPTION: RAD - Myelography Lumbar - 02/22/2023 12:02 pm CLINICAL HISTORY: Lumbar Spine 3 Views dated 05/07/2019; Lumbar Spine 3 Views dated 02/24/2016; SPINE LUMBAR W OBLIQUE dated 08/09/2012 COMPARISON: None. TECHNIQUE: The procedure, risks and alternatives to the procedure were discussed with the patient in detail. After answering all questions, both oral and written consent were obtained. Time-out procedu re was performed. The patient was placed in the prone position on the fluoroscopic table. The skin of the lower back wa s prepped and draped in the usual sterile fashion. After anesthetizing the skin and deeper soft tissu es with 1% lidocaine, a 22 gauge needle was advanced into the thecal sac at the L3-4 level. Intrathec al contrast was administered. AP and oblique images were obtained. At the conclusion of the procedure the needle was withdrawn and a sterile bandage placed over the pun cture site. The patient tolerated the procedure well without immediate complications. Post-procedure care and precaution instructions were discussed with the patient before the LP procedure. Fluoroscopy time: 2.9 minutes Radiation dose: 214.899 MGy FINDINGS: No myelographic block identified. No central spinal stenosis. Fusion hardware extending f rom L2 through S1. Spinal stimulator. Surgical clips in right upper quadrant. Reference subsequent CT for additional findings. IMPRESSION: 1. No central spinal stenosis. 2. Technically successful fluoroscopic guided lumbar puncture for myelogram.
== END 2023-02-22 14:54 | disposition home or self-care (01) ==
LOC: RAD 07:54
PROVIDERS: ATTEND Orthopaedic Surgery Orthopaedic Surgery of the Spine
DX: M48.061 Spinal stenosis, lumbar region without neurogenic claudication (principal); M51.36 Other intervertebral disc degeneration, lumbar region; M54.50 Low back pain, unspecified; M54.12 Radiculopathy, cervical region
CPT/HCPCS: 36415; 62304; 71046; 72131; 85049; 85610; 85730; Q9966; Q9967

== ENCOUNTER 2023-04-26 14:44 | Inpatient (IN) | payer OTHER ==
[2023-04-26 16:03] LABS: Absolute Lymphocytes (CBC) 3.6 K/uL (0.7-4.9); Hematocrit 40.6 % (36.0-45.0); Lymphocytes % 29.2 % (15.3-44.8); MCV 76.9 fL (80-100); MPV 8.5 fL (7.6-11.3); Platelets 314 thou/uL (152-406); RBC Red Blood Cell Count 5.29 M/uL (3.86-4.86)
[2023-04-26 16:23] LABS: Albumin 3.9 g/dL (3.4-5.0); Bilirubin Direct 0.1 mg/dL (0-0.2); Bilirubin Indirect, Calculated 0.4 mg/dL (0.2-0.8); Bilirubin Total 0.5 mg/dL (0.2-1.0); Magnesium 2.6 mg/dL (1.6-2.4); Potassium 3.1 mEq/L (3.5-5.1); Protein, Total 7.7 g/dL (6.4-8.2); Troponin High Sensitivity 3.6 pg/mL (<58.9)
--- NOTE | 2023-04-26 16:24 | RAD REPORT ---
EXAM DESCRIPTION: RAD - Chest Single View - 04/26/2023 4:18 pm CLINICAL HISTORY: CHEST PAIN COMPARISON: Chest Pa And Lat (2 Views) dated 04/11/2023; Chest Pa And Lat (2 Views) dated 02/22/2023; Chest Single View dated 10/16/2020; Chest Pa And Lat (2 Views) dated 02/14/2018 FINDINGS: Lines: None. Lungs: No evidence of edema or pneumonia. Pleural: No significant pleural effusions or pneumothorax. Cardiac: The heart size is within normal limits. Mediastinum: Within normal limits. Bones: No acute fractures. Other: Spinal stimulator. Surgical clips overlie the right and left hemithorax. IMPRESSION: No acute cardiopulmonary disease.
--- NOTE | 2023-04-26 16:59 | EDPHYS ---
Physician Documentation [facility] Name: Mary Zarco Age: 58 yrs Sex: Female : 1965 Arrival Date: 04/26/2023 Time: 14:44 Bed 7 Private MD: Shelley Comer ED Physician Denisa Garcia HPI: 04/26 16:28 This 58 yrs old Female presents to ER via Ambulatory with complaints of Chest Pain. sp3 16:28 58-year-old female with history of diabetes, chronic pain, depression, hypertension, sp3 anxiety, whose neurostimulator has been out of battery for several months now presents to the ED with chief complaint substernal chest pain radiating posteriorly into her upper back. Her chronic pain is really more posterior lower back and she states this is different. Her chest pain symptoms started approximately 2 to 3 hours prior to arrival around 1 PM today. She was not in any exertion and just resting when it started. Pain is described as sharp in nature and mildly positional. She denies headache, neck pain, facial pain, shortness of breath, abdominal pain, nausea, vomiting, diarrhea, syncope, near syncope, focal neurodeficit, or any other signs or symptoms at this time.. Historical: - Allergies: 14:47 Dilaudid; ll1 14:47 Sulfa (Sulfonamide Antibiotics); ll1 - PMHx: 14:47 Chronic pain; Depression; Diabetes - NIDDM; Anxiety; Hypertension; High Cholesterol; ll1 tremors; stimulator in back; - Immunization history:: Adult Immunizations up to date. - Social history:: Smoking status: Patient denies any tobacco usage or history of. Patient/guardian denies using tobacco products. ROS: 16:30 Constitutional: Negative for fever, chills, and weight loss, Eyes: Negative for injury, sp3 pain, redness, and discharge, ENT: Negative for injury, pain, and discharge, Neck: Negative for injury, pain, and swelling, Respiratory: Negative for shortness of breath, cough, wheezing, and pleuritic chest pain, Abdomen/GI: Negative for abdominal pain, nausea, vomiting, diarrhea, and constipation, Back: Negative for injury and pain, MS/Extremity: Negative for injury and deformity, Skin: Negative for injury, rash, and discoloration, Neuro: Negative for headache, weakness, numbness, tingling, and seizure, Psych: Negative for depression, anxiety, suicide ideation, homicidal ideation, and hallucinations, Allergy/Immunology: Negative for hives, rash, and allergies, Endocrine: Negative for neck swelling, polydipsia, polyuria, polyphagia, and marked weight changes. 16:30 All other systems are negative. Exam: 16:30 Constitutional: This is a well developed, well nourished patient who is awake, alert, sp3 and in no acute distress. Head/Face: Normocephalic, atraumatic. Eyes: Pupils equal round and reactive to light, extra-ocular motions intact. Lids and lashes normal. Conjunctiva and sclera are non-icteric and not injected. Cornea within normal limits. Periorbital areas with no swelling, redness, or edema. ENT: Nares patent. No nasal discharge, no septal abnormalities noted. External auditory canals are clear. Oropharynx with no redness, swelling, or masses, exudates, or evidence of obstruction, uvula midline. Mucous membranes moist. Neck: Trachea midline, no thyromegaly or masses palpated, and no cervical lymphadenopathy. Supple, full range of motion without nuchal rigidity, or vertebral point tenderness. No Meningismus. Chest/axilla: Normal chest wall appearance and motion. Nontender with no deformity. No lesions are appreciated. Cardiovascular: Regular rate and rhythm with a normal S1 and S2. No gallops, murmurs, or rubs. Normal PMI, no JVD. No pulse deficits. Respiratory: Lungs have equal breath sounds bilaterally, clear to auscultation and percussion. No rales, rhonchi or wheezes noted. No increased work of breathing, no retractions or nasal flaring. Abdomen/GI: Soft, non-tender, with normal bowel sounds. No distension or tympany. No guarding or rebound. No evidence of tenderness throughout. Skin: Warm, dry with normal turgor. Normal color with no rashes, no lesions, and no evidence of cellulitis. MS/ Extremity: Pulses equal, no cyanosis. Neurovascular intact. Full, normal range of motion. Neuro: Awake and alert, GCS 15, oriented to person, place, time, and situation. Cranial nerves II-XII grossly intact. Motor strength 5/5 in all extremities. Sensory grossly intact. Cerebellar exam normal. Normal gait. Psych: Awake, alert, with orientation to person, place and time. Behavior, mood, and affect are within normal limits. 16:30 ECG was reviewed by the Attending Physician. EKG demonstrates sinus tachycardia at 108 bpm with normal intervals, normal axis, normal QRS, nonspecific diffuse ST/T changes without evidence of acute ischemia. Vital Signs: 14:48 BP 147 / 91; Pulse 109; Resp 17; Temp 97.4; Pulse Ox 100% ; Weight 92.53 kg; Height 5 ll1 ft. 7 in. ; Pain 9/10; 15:58 BP 121 / 92; Pulse 100; Resp 17; Pulse Ox 97% on R/A; Pain 7/10; iw 16:50 BP 101 / 78; Pulse 98; Resp 16; Pulse Ox 98% on R/A; iw 19:12 BP 100 / 72; Pulse 86; Resp 16; Pulse Ox 99% on R/A; iw 19:40 BP 115 / 74; Pulse 83; Resp 18 S; Pulse Ox 100% on R/A; ha1 14:48 Body Mass Index 31.95 (92.53 kg, 170.18 cm) ll1 14:48 Pain Scale: Adult ll1 15:58 Pain Scale: Adult iw MDM: 15:05 Patient medically screened. ike 16:31 Data reviewed: vital signs, nurses notes. Data reviewed: lab test result(s), EKG, sp3 radiologic studies. ED course: 58-year-old female with the PMH above now presents with chest pain radiating to the back. Differential diagnosis is broad and includes acute coronary syndrome, musculoskeletal pain, aortic dissection, pneumothorax, and to a lesser extent pulmonary embolism. Not highly suspicious for esophageal pathology, mediastinitis, or any other concerning chest pathology. Given patient's past medical history, her heart score warrants 23-hour observation. We will also obtain CT scan of the chest and abdomen looking for aortic dissection. Cardiology consult will be obtained as well with serial cardiac markers. Further per inpatient team with probable discharge tomorrow if work-up is negative. Dilaudid IV for pain control initiated. We will hold antiplatelet and anticoagulant's until CT is returned.. 16:57 ED course: Initial cardiac markers are negative. Patient is going to CT scan. Inpatient sp3 team to follow-up on that along with the ER team. Moderate heart score. Cardiology consultation has needed.. 04/26 15:35 Order name: Basic Metabolic Panel; Complete Time: 16:26 sp3 04/26 15:35 Order name: CBC with Diff; Complete Time: 18:03 sp3 04/26 15:35 Order name: LFT's; Complete Time: 16:26 sp3 04/26 15:35 Order name: Magnesium; Complete Time: 16:26 sp3 04/26 15:35 Order name: NT PRO-BNP; Complete Time: 16:26 sp3 04/26 15:35 Order name: PT-INR sp3 04/26 15:35 Order name: Troponin HS; Complete Time: 16:26 sp3 04/26 18:29 Order name: Hemoglobin A1c EDMS 04/26 18:29 Order name: Lipid Profile EDMS 04/26 18:29 Order name: Lipid Profile EDMS 04/26 18:31 Order name: Troponin High Sensitivity EDMS 04/26 18:31 Order name: Troponin High Sensitivity EDMS 04/26 18:31 Order name: Troponin High Sensitivity EDMS 04/26 18:39 Order name: Magnesium EDMS 04/26 18:39 Order name: Phosphorus EDMS 04/26 18:39 Order name: T4 Free EDMS 04/26 18:39 Order name: Thyroid Stimulating Hormone EDMS 04/26 18:39 Order name: Urinalysis w/ reflexes EDMS 04/26 18:39 Order name: Basic Metabolic Panel EDMS 04/26 18:39 Order name: Basic Metabolic Panel EDMS 04/26 18:39 Order name: CBC with Automated Diff EDMS 04/26 18:39 Order name: CBC with Automated Diff EDMS 04/26 15:35 Order name: XRAY Chest (1 view); Complete Time: 16:26 3 04/26 16:16 Order name: CT Aorta for Dissection; Complete Time: 18:03 3 04/26 18:29 Order name: Echo with Doppler EDMS 04/26 18:36 Order name: Head Brain Wo Cont EDMS 04/26 18:39 Order name: C Spine Wo Con EDMS 04/26 15:35 Order name: EKG; Complete Time: 15:36 3 04/26 18:39 Order name: CONS Physician Consult EDMS 04/26 18:39 Order name: Heart Healthy EDMS 04/26 18:41 Order name: Physical Therapy Consult EDMS 04/26 15:35 Order name: Cardiac monitoring; Complete Time: 16:01 sp3 04/26 15:35 Order name: EKG - Nurse/Tech; Complete Time: 16:02 sp3 04/26 15:35 Order name: IV Saline Lock; Complete Time: 16:01 sp3 04/26 15:35 Order name: Labs collected and sent; Complete Time: 16:01 sp3 04/26 15:35 Order name: O2 Per Protocol; Complete Time: 16:02 sp3 04/26 15:35 Order name: O2 Sat Monitoring; Complete Time: 16:02 sp3 Administered Medications: 16:53 Not Given (Patient Refused): HYDROmorphone IVP 1 mg IVP once sp3 16:57 Drug: morphine IVP or IV 4 mg Route: IVP; Infused Over: 4 mins; Site: left antecubital; iw 19:13 Follow up: Response: No adverse reaction; Pain is decreased iw Disposition Summary: 04/26/23 16:58 Hospitalization Ordered Hospitalization Status: Observation sp3 Provider: Austin Betts sp3 Location: Telemetry/MedSurg (observation) sp3 Condition: Stable sp3 Problem: new sp3 Symptoms: are unchanged sp3 Bed/Room Type: Standard sp3 Room Assignment: 422(04/26/23 18:51) Diagnosis - Chest pain sp3 Forms: - Medication Reconciliation Form sp3 - SBAR form sp3 Signatures: Dispatcher [employer] EDMargaret Good RN RN dw Anderson, Corey, MD MD cha Williams, Irene, RN RN iw Lewis, Lynsay, RN RN Denisa Pina MD MD sp3 Corrections: (The following items were deleted from the chart) 18:36 18:34 C Spine Wo Con ordered. EDMS EDMS 18:39 18:29 Head Brain Wo Cont ordered. EDMS EDMS 18:39 18:29 Thoracic Spine W/o Cont ordered. EDMS EDMS 18:39 18:29 CT-CERVICAL SPINE W/O CONTRAST ordered. EDMS EDMS 18:39 18:36 CT-CERVICAL SPINE W/O CONTRAST ordered. EDMS EDMS 18:51 16:58 sp3 dw
--- NOTE | 2023-04-26 16:59 | ER ---
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 ll1 Coronavirus screen: Vaccine status: Patient reports being unvaccinated. Client denies travel out of the [place] in the last 14 days. At this time, the client does not indicate any symptoms associated with coronavirus-19. Ebola Screen: Patient denies travel to an Ebola-affected area in the 21 days before illness onset. 14:48 Method Of Arrival: Ambulatory ll1 15:04 Initial Sepsis Screen: Does the patient meet any 2 criteria? No. Patient's initial ll1 sepsis screen is negative. Does the patient have a suspected source of infection? No. Patient's initial sepsis screen is negative. Risk Assessment: Do you want to hurt yourself or someone else? Patient reports no desire to harm self or others. Onset of symptoms was April 26, 2023. 15:04 Acuity: PANCHITO 3 ll1 Triage Assessment: 14:48 General: Appears uncomfortable, Behavior is calm, cooperative, appropriate for age. ll1 Pain: Complains of pain in chest. Cardiovascular: Reports chest pain. 14:48 Cardiovascular: Reports shortness of breath. Respiratory: Reports shortness of breath. ll1 Historical: - Allergies: 14:47 Dilaudid; ll1 14:47 Sulfa (Sulfonamide Antibiotics); ll1 - PMHx: 14:47 Chronic pain; Depression; Diabetes - NIDDM; Anxiety; Hypertension; High Cholesterol; ll1 tremors; stimulator in back; - Immunization history:: Adult Immunizations up to date. - Social history:: Smoking status: Patient denies any tobacco usage or history of. Patient/guardian denies using tobacco products. Screenin:08 [facility] ED Fall Risk Assessment (Adult) Score/Fall Risk Level 0 - 2 = Low Risk. iw 16:08 Abuse screen: Denies threats or abuse. Nutritional screening: No deficits noted. iw Tuberculosis screening: No symptoms or risk factors identified. Assessment: 16:02 General: Appears uncomfortable, well nourished, Behavior is cooperative. Pain: iw Complains of pain in chest Pain radiates to neck Pain currently is 7 out of 10 on a pain scale. Quality of pain is described as pressure, sharp, Pain began 3 hours ago. Neuro: Level of Consciousness is awake, alert, obeys commands, Oriented to person, place, time, situation. Cardiovascular: Reports chest pain, Capillary refill < 3 seconds is brisk Patient's skin is warm and dry. Rhythm is sinus tachycardia. Respiratory: Respiratory effort is even, unlabored, Respiratory pattern is regular, symmetrical. 16:50 Reassessment: Patient appears in no apparent distress at this time. Patient and/or iw family updated on plan of care and expected duration. Pain level reassessed. Patient is alert, oriented x 3, equal unlabored respirations, skin warm/dry/pink. Patient states symptoms have not improved. 19:12 Reassessment: Patient appears in no apparent distress at this time. Patient and/or iw family updated on plan of care and expected duration. Pain level reassessed. Patient is alert, oriented x 3, equal unlabored respirations, skin warm/dry/pink. 19:30 General: Appears uncomfortable, Behavior is calm, cooperative. Pain: Complains of pain ha1 in chest Pain does not radiate. Pain currently is 5 out of 10 on a pain scale. Neuro: Level of Consciousness is awake, alert, obeys commands, Oriented to person, place, time, situation. Cardiovascular: Patient's skin is warm and dry. Respiratory: Airway is patent Respiratory effort is even, unlabored, Respiratory pattern is regular, symmetrical. Vital Signs: 14:48 BP 147 / 91; Pulse 109; Resp 17; Temp 97.4; Pulse Ox 100% ; Weight 92.53 kg; Height 5 ll1 ft. 7 in. ; Pain 9/10; 15:58 BP 121 / 92; Pulse 100; Resp 17; Pulse Ox 97% on R/A; Pain 7/10; iw 16:50 BP 101 / 78; Pulse 98; Resp 16; Pulse Ox 98% on R/A; iw 19:12 BP 100 / 72; Pulse 86; Resp 16; Pulse Ox 99% on R/A; iw 19:40 BP 115 / 74; Pulse 83; Resp 18 S; Pulse Ox 100% on R/A; ha1 14:48 Body Mass Index 31.95 (92.53 kg, 170.18 cm) ll1 14:48 Pain Scale: Adult ll1 15:58 Pain Scale: Adult iw ED Course: 14:46 Patient arrived in ED. am2 14:47 Shelley Comer FNP-C is Private Physician. am2 14:58 Arm band placed on Patient placed in an exam room, on a stretcher. ll1 15:04 Triage completed. ll1 15:05 Demario Solitario MD is Attending Physician. ike 15:05 Attending Physician role handed off by Demario Solitario MD sp3 15:05 Denisa Garcia MD is Attending Physician. sp3 15:38 Estelle Silva, RN is Primary Nurse. db 15:43 Malathi Donato, RN is Primary Nurse. me1 15:57 Inserted saline lock: 20 gauge in left antecubital area, using aseptic technique. iw 15:57 Patient maintains SpO2 saturation greater than 95% on room air. iw 16:08 Patient has correct armband on for positive identification. Bed in low position. Call iw light in reach. Side rails up X2. Provided Education on: plan of care. Client placed on continuous cardiac and pulse oximetry monitoring. NIBP monitoring applied. conveyor monitor on. Pulse ox on. NIBP on. 16:19 XRAY Chest (1 view) In Process Unspecified. EDMS 16:57 Austin Betts is Hospitalizing Provider. sp3 17:04 CT Aorta for Dissection In Process Unspecified. EDMS 17:05 Lauren England, RN is Primary Nurse. iw 19:12 No provider procedures requiring assistance completed. Patient admitted, IV remains in iw place. Administered Medications: 16:53 Not Given (Patient Refused): HYDROmorphone IVP 1 mg IVP once sp3 16:57 Drug: morphine IVP or IV 4 mg Route: IVP; Infused Over: 4 mins; Site: left antecubital; iw 19:13 Follow up: Response: No adverse reaction; Pain is decreased iw Medication: 16:08 VIS not applicable for this client. iw Outcome: 16:58 Decision to Hospitalize by Provider. sp3 19:59 Admitted to Tele accompanied by tech, family with patient, via wheelchair, room 422, ha1 with chart, Report called to EARLENE Rodgers 19:59 Condition: stable 19:59 Discharge instructions given to patient, family, Instructed on the need for admit, Demonstrated understanding of instructions. 20:00 Patient left the ED. ha1 Signatures: Dispatcher [employer] EDDemario Nunez MD MD cha Williams, Irene RN RN iw Felicitas Alas am2 Cyndi Huber RN RN ll1 Denisa Garcia MD MD sp3 Do Cortes RN RN ha1 Estelle Silva RN RN db Malathi Donato RN RN me1 Corrections: (The following items were deleted from the chart) 15:58 15:57 Inserted saline lock: 20 gauge in right antecubital area, using aseptic iw technique. iw 19:08 14:48 Pain: Complains of pain in chest ll1 ll1
[2023-04-26] MEDS ORDERED: HYDROMORPHONE HCL 1 MG/ML INJ ONE (17:00)
[2023-04-26] MEDS ORDERED: MORPHINE 4 MG/ML SYR ONE (17:04)
--- NOTE | 2023-04-26 17:14 | RAD REPORT ---
EXAM DESCRIPTION: CTAngio Aorta For Dissection - 04/26/2023 5:02 pm CLINICAL HISTORY: Chest pain / abd pain COMPARISON: No comparisons TECHNIQUE: CTA of the chest, abdomen, and pelvis was performed with IV contrast. MIPS of the aorta w ere created. All CT scans are performed using dose optimization technique as appropriate and may include automated exposure control or mA/KV adjustment according to patient size. FINDINGS: Thorax: Chest Wall: No abnormal mass surgical changes in the breasts. Lungs: No acute abnormality. Pleura: No effusions or pneumothorax. Lyubov/Mediastinum: No lymphadenopathy. Aorta/Pulmonary Arteries: Unremarkable Heart: Normal size. Abdomen/Pelvis: Liver: Hepatic steatosis Biliary: Cholecystectomy. Intra and extrahepatic biliary duct dilatation which may be related to the postcholecystectomy state. Whole Stomach: No significant focal abnormality. Duodenum: No significant focal abnormality. Pancreas: No significant abnormality. Spleen: Heterogeneity of the spleen may be from phase of contrast. Adrenal: No suspicious lesions. Kidney/ureter: No hydronephrosis. Right renal scarring. No stones or masses. Retroperitoneum: No retroperitoneal adenopathy. Vascular: No aneurysm. Bowel: No significant focal abnormality. Normal appendix. Peritoneum: No ascites or free air. Bladder: Hysterectomy Reproductive: No adnexal masses. Bones: No acute fracture. L2 through S1 fusion. Other: n/a IMPRESSION: No acute findings within the chest, abdomen, or pelvis. Specifically, no aortic aneurysm , aortic dissection, or pulmonary embolus identified.
[2023-04-26] MEDS ORDERED: ONDANSETRON 4 MG/2 ML VIAL IV PRN (18:37)
[2023-04-26] MEDS ORDERED: SODIUM CHLORIDE 0.9% 10ML INJ IV PRN (18:39)
--- NOTE | 2023-04-26 18:40 | P.HP ---
Certification for Inpatient Patient admitted to: Inpatient With expected LOS: >2 Midnights Patient will require the following post-hospital care: None Practitioner: I am a practitioner with admitting privileges, knowledge of patient current condition, hospital course, and medical plan of care. Services: Services provided to patient in accordance with Admission requirements found in Title 42 Section 412.3 of the Code of Federal Regulations Patient History Date of Service: 04/26/23 Reason for admission: Chest pain History of Present Illness: Patient is a 58-year-old female with a past medical history significant for chronic pain, depression, DM 2, anxiety disorder, hypertension, hyperlipidemia, neurostimulator who presents with complaint of substernal chest pain onset today. Patient indicated that pain radiates to her right shoulder\right arm, neck and left chest wall. Patient rated pain as 10/10 in severity and described pain as stabbing in quality. Patient reported that she has been having upper back pain intermittently for the past 6 months. Patient also reports chronic low back pain. Patient reported she has a neurostimulator in place but indicated that the battery has been nonfunctional. Patient reported that in the last 2 weeks she has been having intermittent difficulty with word expressions. Patient reported associated signs and symptoms of dizziness, shortness of breath with exertion and bilateral lower extremity weakness. Patient denies any other signs or symptoms. Symptoms are aggravated or relieved by nothing. Patient decided to present to the hospital for medical evaluation. Allergies hydromorphone [From Dilaudid] Adverse Reaction (Verified 02/22/23 08:10) hallucinations Home Medications: Atorvastatin Calcium [Lipitor] 40 mg PO BEDTIME 10/20/22 Cyclobenzaprine [Flexeril*] 1 tab PO TID 10/20/22 Hydrocodone Bit/Acetaminophen [Hydrocodon-Acetaminophn 10-325] 1 tab PO QID 10/20/22 Losartan/Hydrochlorothiazide [Losartan-Hctz 100-12.5 mg Tab] 1 each PO DAILY 10/20/22 Montelukast Sodium 10 mg PO BEDTIME 10/20/22 Omeprazole [Prilosec] 40 mg PO DAILY 10/20/22 Pregabalin [Lyrica*] 100 mg PO TID 10/20/22 Propranolol [Inderal LA*] 100 mg PO BID 10/20/22 Vortioxetine Hydrobromide [Trintellix] 20 mg PO DAILY 10/20/22 Fexofenadine HCl [Talisha Allergy] 1 tab PO DAILY 02/22/23 - Past Medical/Surgical History Diabetic: No -: MRSA intestines -: htn -: anxieth -: depression -: tremors -: hyperlipidemia -: DMII -: back surgery s1-L2 -: panda -: hysterectomy -: umbilical herinia removed -: tonsills removed Psychosocial/ Personal History: Pt is disabled, lives at home with . - Family History Mother -: Heart disease, Diabetes Sister -: Heart disease, Hypertension, Cancer, Seizures - Social History Smoking Status: Never smoker Alcohol use: Yes CD- Drugs: No Caffeine use: Yes Place of Residence: Home Review of Systems General: Weakness Eyes: Unremarkable ENT: Unremarkable Respiratory: SOB with Excertion Cardiovascular: Chest Pain Gastrointestinal: Unremarkable Genitourinary: Unremarkable Musculoskeletal: Neck Pain, Shoulder Pain, Arm Pain, Back Pain Integumentary: Unremarkable Neurological: Weakness, Change in Speech, Other (Dizziness) Lymphatics: Unremarkable Physical Examination - Physical Exam General: Alert, In no apparent distress, Oriented x3, Cooperative HEENT: Atraumatic, PERRLA, Mucous membr. moist/pink, EOMI, Sclerae nonicteric Neck: Supple, 2+ carotid pulse no bruit, No LAD, Without JVD or thyroid abnormality Respiratory: Clear to auscultation bilaterally, Normal air movement Cardiovascular: No edema, Regular rate/rhythm, Normal S1 S2 Capillary refill: <2 Seconds Gastrointestinal: Normal bowel sounds, Soft and benign, Non-distended, No tenderness Musculoskeletal: No clubbing, No swelling, Tenderness Integumentary: No rashes, No significant lesion Neurological: Normal speech, Normal tone, Normal affect Lymphatics: No axilla or inguinal lymphadenopathy - Studies Laboratory Data (last 24 hrs) 04/26/23 15:50: WBC 12.40 H, Hgb 13.3, Hct 40.6, Plt Count 314 04/26/23 15:50: Sodium 134 L, Potassium 3.1 L, BUN 19 H, Creatinine 1.56 H, Glucose 161 H, Magnesium 2.6 H, Total Bilirubin 0.5, AST 18, ALT 33, Alkaline Phosphatase 178 H Assessment and Plan - Plan -- Chest pain. To rule out ACS. Will trend serial troponins--so far negative. Cardiology consulted. Echocardiogram pending to assess cardiac structures and function. Telemetry to monitor for any significant arrhythmia. CT dissection indicates No acute findings within the chest, abdomen, or pelvis. Specifically, no aortic aneurysm, aortic dissection, or pulmonary embolus identified. Will await further recommendation from black top paver operator. --DM2. BS monitoring with sliding scale insulin. --Speech impairment. Patient reports intermittent speech difficulty with word expression. CT brain pending for further evaluation. Speech currently at baseline. Continue supportive care. -- BLE weakness. CT head pending for further evaluation. PT eval and treat. --Anxiety disorder\depression. Continue home medications. --Hypertension. Poorly controlled. Continue home medications and labetalol as needed. -- Hyperlipidemia. Continue statin. --Hypokalemia. Replete as needed. --Leukocytosis. Likely reactive. We will continue to monitor WBC levels. --GERD. Continue home medication. --Acute pain\chronic back pain. We will manage pain with current pain medication regimen. -- DVT prophylaxis with Lovenox subQ. Discharge Plan: Home Plan to discharge in: Greater than 2 days - Advance Directives Does patient have a Living Will: No Does patient have a Durable POA for Healthcare: Yes - Code Status/Comfort Care Code Status Assessed: Yes Physician Review: Patient Assessed, Agree with Above Assessment and Plan Critical Care: No
[2023-04-26] MEDS ORDERED: D50W 25 GM/50 ML SYRINGE IV PRN (19:40)
[2023-04-26] MEDS ORDERED: GLUCAGON 1 MG/VIAL IM PRN (19:40)
[2023-04-26] MEDS ORDERED: LABETALOL 20 MG/4ML SYRINGE IV PRN (20:02)
[2023-04-26] MEDS: INSULIN -REGULAR HUMAN 50 UNIT/0.5 ML ML SQ SCH (21:00)
[2023-04-26] MEDS: HYDROCODONE/APAP 10/325 TAB PO PRN (21:21)
[2023-04-26] MEDS: ENOXAPARIN 40 MG/0.4 ML SQ SCH (21:21)
[2023-04-26] MEDS: PANTOPRAZOLE 40 MG INJ IVP SCH (21:21)
[2023-04-26 21:33] LABS: Magnesium 2.6 mg/dL (1.6-2.4); Phosphorus 3.2 mg/dL (2.5-4.9); Thyroid Stimulating Hormone 2.06 uIU/mL (0.358-3.740)
[2023-04-26 21:38] VITALS: O2SAT 100
[2023-04-26 22:25] LABS: Protime INR ND
[2023-04-26 23:13] VITALS: BMI 31.9
[2023-04-27 02:13] LABS: Absolute Lymphocytes (CBC) 3.9 K/uL (0.7-4.9); Hematocrit 39.1 % (36.0-45.0); Lymphocytes % 33.6 % (15.3-44.8); MPV 8.7 fL (7.6-11.3); Platelets 276 thou/uL (152-406); RBC Red Blood Cell Count 5.07 M/uL (3.86-4.86)
[2023-04-27] MEDS: CYCLOBENZAPRINE 10 MG TAB PO PRN ×2 (07:03→13:15)
[2023-04-27] MEDS: HYDROCODONE/APAP 10/325 TAB PO PRN ×2 (07:04→13:15)
[2023-04-27] MEDS: INSULIN -REGULAR HUMAN 50 UNIT/0.5 ML ML SQ SCH ×3 (07:30→16:24)
[2023-04-27] MEDS ORDERED: REGADENOSON 0.4 MG/5 ML SYR IV ONE (07:35)
[2023-04-27] MEDS ORDERED: POTASSIUM CL SA 10 MEQ TAB PO ONE ×2 (08:05→21:00)
--- NOTE | 2023-04-27 08:12 | RAD REPORT ---
EXAM DESCRIPTION: CT - Head Brain Wo Cont - 04/27/2023 7:51 am CLINICAL HISTORY: R O CVA COMPARISON: HEAD BRAIN W O CONTRAST dated 12/31/2015 TECHNIQUE: Noncontrast head CT images were obtained without IV contrast. Multiplanar reformats were generated and reviewed. All CT scans are performed using dose optimization technique as appropriate and may include automated exposure control or mA/KV adjustment according to patient size. FINDINGS: No intracranial hemorrhage, mass, or edema. Midline structures are unremarkable. Normal ventricular caliber for age. Britton-white matter differentiation is preserved, without evidence of acute infarct. No abnormal extra- axial fluid collections. Mastoid air cells are well aerated. Moderate mucosal thickening with small air-fluid level in the rig ht sphenoid sinus. No acute bony findings. IMPRESSION: No evidence of an acute intracranial process.
--- NOTE | 2023-04-27 08:21 | RAD REPORT ---
EXAM DESCRIPTION: CT - C Spine Wo Con - 04/27/2023 7:51 am CLINICAL HISTORY: Neck pain COMPARISON: 05/07/2019 TECHNIQUE: Axial noncontrast thin cut CT images of the cervical spine were obtained with sagittal an d coronal reconstruction images generated and reviewed. All CT scans are performed using dose optimization technique as appropriate and may include automated exposure control or mA/KV adjustment according to patient size. FINDINGS: Cervical body height and alignment are normal. Straightening of normal cervical lordosis w hich may be positional or secondary to muscle spasm. Mild endplate and facet remodeling. No disk space narrowing. No significant bony canal or foraminal s tenosis. Up to moderate degenerative changes at the atlanto odontoid articulation. No fracture or acute bony abnormality. No paraspinal mass or hematoma. IMPRESSION: No acute cervical spine fracture or subluxation. Straightening of normal cervical lordosis, may be positional or secondary to muscle spasm. Mild degen erative changes as above.
[2023-04-27] MEDS: ENOXAPARIN 40 MG/0.4 ML SQ SCH (08:23)
[2023-04-27] MEDS: PANTOPRAZOLE 40 MG INJ IVP SCH (08:23)
--- NOTE | 2023-04-27 11:38 | RAD REPORT ---
EXAM DESCRIPTION: NM - Rest Stress Cardiac Imaging - 04/27/2023 11:03 am CLINICAL HISTORY: CP COMPARISON: No comparisons TECHNIQUE: The patient was administered approximately 10.8mCi of Tc 99m Sestamibi prior to resting S PECT imaging of the heart. The patient was then administered approximately 30.5 mCi of Tc 99m Sestami bi following exercise or pharmacologic stress. Multiplanar SPECT images were reviewed. FINDINGS: No stress induced ischemic defect is seen to suggest stress induced ischemia. Fixed defect involving the entirety of the lateral wall, extending to the adjacent segments of the inferior wall. The end diastolic volume is 44 ml, the end systolic volume is 7 ml, and the ejection fraction is 85 % . IMPRESSION: Markedly decreased end systolic volume, somewhat limits evaluation. This could be relate d to longstanding hypertensive status. Elevated left ventricular ejection fraction, 85%. No evidence of stress-induced myocardial ischemia. Fixed defect involving the lateral wall extending to the adjacent segments of the inferior wall, sugg estive of sequelae of remote infarct.
--- NOTE | 2023-04-27 15:46 | EKG ---
Test Date: 2023-04-26 Test Time: 14:55:15 Ep Specialist: LML MEASUREMENT RESULTS: Intervals: Rate: 108 OK: 148 QRSD: 80 QT: 326 QTc: 436 [place]: P: 44 OK: 148 QRS: 33 T: 176 INTERPRETIVE STATEMENTS: Sinus tachycardia Inferior-posterior infarct, age undetermined T wave abnormality, consider lateral ischemia Abnormal ECG Compared to ECG 04/24/2023 13:46:38 T-wave abnormality now present Sinus rhythm no longer present ST (T wave) deviation no longer present Myocardial infarct finding still present Possible ischemia still present Electronically Signed On 04-27-23 15:44:27 CDT by Kingsley Astudillo
[2023-04-27 16:26] VITALS: BP 107/62; TEMP 97.6
--- NOTE | 2023-04-27 18:16 | P.DS ---
Admission Date: 04/26/23 Discharge Date: 04/27/23 Disposition: ROUTINE DISCHARGE Discharge Condition: FAIR Reason for Admission: Chest pain - Problems (1) Chest pain Current Visit: Yes Status: Acute (2) Chronic back pain Current Visit: No Status: Acute Qualifiers: Back pain location: low back pain Back pain laterality: midline Sciatica presence: without sciatica (3) HTN (hypertension) Current Visit: No Status: Acute Qualifiers: Hypertension type: essential hypertension Qualified Code(s): I10 - Es sential (primary) hypertension Brief History of Present Illness: Patient is a 58-year-old female with a past medical history significant for chronic pain, depression, DM 2, anxiety disorder, hypertension, hyperlipidemia, neurostimulator who presents with complaint of substernal chest pain onset today. Patient indicated that pain radiates to her right shoulder\right arm, neck and left chest wall. Patient rated pain as 10/10 in severity and described pain as stabbing in quality. Patient reported that she has been having upper back pain intermittently for the past 6 months. Patient also reports chronic low back pain. Patient reported she has a neurostimulator in place but indicated that the battery has been nonfunctional. Patient reported that in the she has been having intermittent difficulty with word expressions for a period of 1 year. She has not been able to do an MRI due to his nonfunctioning neurostimulator battery. He is planning to do an MRI once her neurostimulator battery changed.initial troponin in the ED was negative. Patient was hospitalized for ACS rule out. Hospital Course: Patient placed under observation on the medical floor. Troponin trended negative. Her pain mostly located in her back. Nuclear stress test was done with did not show any stress-induced ischemia. It did report significant diastolic dysfunction. Echocardiogram done is unremarkable. Patient seen by cardiology Dr. Astudillo and deemed stable for discharge. Vital Signs/Physical Exam: Temp Pulse Resp BP Pulse Ox 97.6 F 96 H 16 107/62 96 04/27/23 16:00 04/27/23 16:00 04/27/23 16:00 04/27/23 16:00 04/27/23 16:00 General: Alert, In no apparent distress, Oriented x3 HEENT: Mucous membr. moist/pink Neck: Supple, JVD not distended Respiratory: Clear to auscultation bilaterally, Normal air movement Cardiovascular: No edema, Regular rate/rhythm, Normal S1 S2 Gastrointestinal: Soft and benign, Non-distended, No tenderness Musculoskeletal: No swelling Integumentary: No rashes, No cyanosis Neurological: Normal strength at 5/5 x4 extr Laboratory Data at Discharge: WBC 11.60 thou/uL (4.3-10.9) H 04/27/23 01:47 Hgb 12.8 g/dL (12.0-15.0) 04/27/23 01:47 Hct 39.1 % (36.0-45.0) 04/27/23 01:47 Plt Count 276 thou/uL (152-406) 04/27/23 01:47 PT ND 04/26/23 15:50 INR ND 04/26/23 15:50 Sodium 137 mEq/L (136-145) 04/27/23 01:47 Potassium 3.3 mEq/L (3.5-5.1) L 04/27/23 16:30 BUN 18 mg/dL (7-18) 04/27/23 01:47 Creatinine 1.34 mg/dL (0.55-1.02) H 04/27/23 01:47 Glucose 146 mg/dL (74-106) H 04/27/23 01:47 Phosphorus 3.2 mg/dL (2.5-4.9) 04/26/23 15:50 Magnesium 2.6 mg/dL (1.6-2.4) H 04/26/23 15:50 Magnesium 2.6 mg/dL (1.6-2.4) H 04/26/23 15:50 Total Bilirubin 0.5 mg/dL (0.2-1.0) 04/26/23 15:50 AST 18 U/L (15-37) 04/26/23 15:50 ALT 33 U/L (13-56) 04/26/23 15:50 Alkaline Phosphatase 178 U/L (45-117) H 04/26/23 15:50 Triglycerides 337 mg/dL (<150) H 04/27/23 01:47 Cholesterol 129 mg/dL (<200) 04/27/23 01:47 HDL Cholesterol 35 mg/dL (40-60) L 04/27/23 01:47 Cholesterol/HDL Ratio 3.69 04/27/23 01:47 Home Medications: Cyclobenzaprine [Flexeril*] 1 tab PO TID 10/20/22 Hydrocodone Bit/Acetaminophen [Hydrocodon-Acetaminophn 10-325] 1 tab PO QID 10/20/22 Montelukast Sodium 10 mg PO BEDTIME 10/20/22 Omeprazole [Prilosec] 40 mg PO DAILY 10/20/22 Pregabalin [Lyrica*] 100 mg PO TID 10/20/22 Propranolol [Inderal LA*] 100 mg PO BID 10/20/22 Vortioxetine Hydrobromide [Trintellix] 20 mg PO DAILY 10/20/22 Fexofenadine HCl [Talisha Allergy] 1 tab PO DAILY 02/22/23 Famotidine [Pepcid*] 1 tab PO BEDTIME 04/26/23 Liraglutide [Victoza 2-Shon] 1.8 mg SQ DAILY 04/26/23 Losartan/Hydrochlorothiazide [Losartan-Hctz 100-12.5 mg Tab] 1 each PO DAILY #30 tab 04/27/23 Rosuvastatin Calcium [Crestor] 1 tab PO BEDTIME #30 tab 04/27/23 New Medications: Rosuvastatin Calcium [Crestor] 1 tab PO BEDTIME #30 tab Losartan/Hydrochlorothiazide [Losartan-Hctz 100-12.5 mg Tab] 1 each PO DAILY #30 tab Diet: ADA Followup: Shelley Comer ENERGY AUDITOR [Primary Care Provider] - 1-2 Weeks Time spent managing pt's care (in minutes): 27
--- NOTE | 2023-04-27 21:23 | CON ---
Date of Consultation: 04/27/2023 Reason For Consultation: Chest pain. History Of Present Illness: This is a 58-year-old female with past medical history of diabetes, hype rtension, dyslipidemia, presented with chest pain in the left side, radiates to the shoulder and arm and the pain also goes to her back. It had been at rest and had another episode about 2 weeks ago. No exertional chest pain or shortness of breath. Past Medical History: As outlined above in HPI. Medications: Refer to reconciliation sheet for detailed list. Medications are reviewed. Allergies: HYDROMORPHONE. Family History: No premature coronary artery disease. Social History: She does not smoke or drink. Does not use any drugs. Review of Systems: All systems reviewed and they are negative except as mentioned in HPI. Physical Examination: Vital Signs: Reviewed. Head and Neck: Pupils are equal, reactive to light. Intact eye movements. No JVD. No cervical lym phadenopathy. Neck is supple. Thyroid is not enlarged. Lungs: Clear to auscultation bilaterally. No rhonchi, wheezing, crackles. No accessory muscle use. Heart: Regular rate and rhythm. No extra sounds. Abdomen: Soft, nontender. Bowel sounds positive. No organomegaly. No masses or hernia. No rigidi ty or rebound. Extremities: No edema, clubbing, or cyanosis. Intact pulses. Skin: No rashes. Neuro: Alert, awake, oriented x3. No acute focal deficits appreciated. Investigations: Cardiac stress test showed no evidence of stress-induced ischemia and her cardiac en zymes, troponins x3 are negative. BUN is 18, creatinine 0.34, and hemoglobin is 12.8. Assessment And Recommendation: 1.Chest pain. It is atypical with negative stress test. No further cardiac workup is needed. Ejec tion fraction on echo was normal. From Cardiology standpoint, patient can be released to follow up a s an outpatient. 2.Hypertension, controlled. 3.Dyslipidemia in the presence of diabetes. Recommend to start atorvastatin 40 mg at bedtime. Card iology will sign off and patient can follow up as an outpatient. SR/MODL Voice ID: [id number] Report ID: [id number]
--- NOTE | 2023-04-28 09:11 | ECHO ---
HEIGHT: 5 ft 7 in WEIGHT: 204 lb 0 oz DATE OF STUDY: 04/27/[address]: Ramona Mcdaniel 2-DIMENSIONAL: YES M.MODE: YES DOPPLER: YES COLOR FLOW: YES TDS: YES PORTABLE: YES DEFINITY: NO BUBBLE STUDY: NO DIAGNOSIS: CHEST PAIN CARDIAC HISTORY: CATHERIZATION: NO SURGERY: NO PROSTHETIC VALVE: NO PACEMAKER: NO MEASUREMENTS (cm) DIASTOLIC (NORMALS) SYSTOLIC (NORMALS) IVSd 1.1 (0.6-1.2) LA Diam 2.2 (1.9-4.0) LVEF 56% LVIDd 3.3 (3.5-5.7) LVIDs 2.4 (2.0-3.5) %FS 29% LVPWd 1.1 (0.6-1.2) Ao Diam 2.1 (2.0-3.7) 2 DIMENSIONAL ASSESSMENT: RIGHT ATRIUM: NORMAL LEFT ATRIUM: NORMAL RIGHT VENTRICLE: RVH LEFT VENTRICLE: NORMAL TRICUSPID VALVE: NORMAL MITRAL VALVE: NORMAL PULMONIC VALVE: NORMAL AORTIC VALVE: NORMAL PERICARDIAL EFFUSION: NONE AORTIC ROOT: NORMAL LEFT VENTRICULAR WALL MOTION: NORMAL DOPPLER/COLOR FLOW: NORMAL COMMENTS: 1. NORMAL LEFT VENTRICULAR EJECTION FRACTION >60%. 2. NORMAL WALL MOTION. 3. RIGHT VENTRICULAR HYPERTROPHY IS PRESENT WITH NORMAL FUNCTION. 4. POOR WINDOWS. TECHNOLOGIST: Kavita ANTUNEZ
--- NOTE | 2023-04-28 09:17 | TREADPHA ---
DX: CHEST PAIN Date of Study: 04/27/2023 Ht: 5' 7 " Wt: 204 lb 0 oz Consulting Physician: REBECCA MEDICATIONS: NORCO, FLEXERIL, DEXTROSE, LOVENOX, GLUCAGEN, NOVOLIN-R HISTORY: 58 YEAR OLD FEMALE WITH COMPLIANTS OF CHEST PAIN. HISTORY OF HYPERTENSION, PATIENT STATES ALLERGIES TO DILAUDID AND SULFA. PHYSICIAL EXAMINATION: RESTING B.P.: 113/61 RESTING H.R.: 98 RESTING EKG: NORMAL SINUS RHYTHM WITH INFERIOR LATERAL T DECREASE. PROTOCOL: LEXISCAN EXERCISE TIME: 3:30 B.P. AT PEAK STRESS: 115/52 IMPRESSION: LEXISCAN INJECTED. CARDIOLITE INJECTED. SEE NUCLEAR MEDICINE REPORT. PATIENT STATES CHEST PAIN THAT COMES AND GOES. NO SUPRAVENTRICULAR OR VENTRICULAR TACHYCARDIA. NO PREMATURE ATRIAL COMPLEXES NOTED. NO PREMATURE VENTRICULAR COMPLEXES NOTED. PATIENT STATES HEADACHE IN RECOVERY. NO EKG CHANGES OF ISCHEMIA WITH LEXISCAN.
== END 2023-04-27 19:45 | disposition home or self-care (01) | DRG 313 ==
LOC: ER 14:44 → OBSVTOIN 18:26 → 4TH 18:26 → INTOOBSV 18:26
PROVIDERS: ADMIT Internal Medicine; ATTEND Internal Medicine
DX: R07.89 Other chest pain (principal); M54.50 Low back pain, unspecified; E11.9 Type 2 diabetes mellitus without complications; R53.1 Weakness; E78.5 Hyperlipidemia, unspecified; E87.6 Hypokalemia; D72.829 Elevated white blood cell count, unspecified; K21.9 Gastro-esophageal reflux disease without esophagitis; I10 Essential (primary) hypertension; G89.29 Other chronic pain; F41.8 Other specified anxiety disorders; R47.89 Other speech disturbances; Z82.49 Family history of ischemic heart disease and other diseases of the circulatory system
CPT/HCPCS: 36415; 70450; 71045; 71275; 72125; 74175; 78452; 80048; 80061; 80076; 82947; 83036; 83735; 83880; 84100; 84132; 84439; 84443; 84484; 85025; 85610; 93005; 93017; 93306; 96374; 97116; 97161; 99285; A9500; C9113; G0378; J1170; J1650; J2785; Q9967